=== PATIENT | male | born 1935 | race Caucasian/White ===

== ENCOUNTER 2016-11-19 22:55 | Inpatient (IN) | payer OTHER ==
[~2016-11-19] VITALS: Ht 165.1 cm; Wt 96.6 kg
[2016-11-20] VITALS (18 sets, daily range): BP systolic 94–189; BP diastolic 48–106
--- NOTE | 2016-11-20 00:49 | ED NURSING NOTES ---
Clinical Report - Nurses [place] [address] [place] [address] 11/19/2016 23:01 Patient: FLORESITA WANG TRIAGE Acuity: LEVEL 3. Chief Complaint: COUGH and FEVER and WHEEZING. Alert. No acute distress. SEPSIS SCREEN: Sepsis Screen. Negative (no infection suspected/documented). --23:16 Huyen Jaramillo R.N. 23:08 11/19/16. BP: 123/84. HR: 87. RR: 20. O2 saturation: 88% on room air. Temp: 98.9 F (oral). Pain level now: 0/10. --23:16 Huyen Jaramillo R.N. Weight: 92.9 kg stated. Height/Length: 66 inches Per Patient. BMI: 33.1. --23:15 Huyen Jaramillo R.N. Medications Fluticasone Propionate HFA Inhalation. --23:21 Huyen Jaramillo R.N. Atenolol Oral 25 mg. --23:21 Huyen Jaramillo R.N. Lovastatin Oral (Tablet 40 mg), at bedtime. --23:21 Huyen Jaramillo R.N. Glimepiride Oral. --23:21 Huyen Jaramillo R.N. Lisinopril Oral 20 mg, daily. --23:22 Huyen Jaramillo R.N. MetFORMIN HCl Oral (Tablet 1000 mg). --23:23 Huyen Jaramillo R.N. Warfarin Sodium Oral. --23:23 Huyen Jaramillo R.N. Magnesium Oral. --23:23 Huyen Jaramillo R.N. Albuterol Sulfate Inhalation. --23:26 Huyen Jaramillo R.N. TiZANidine HCl Oral. --23:26 Huyen Jaramillo R.N. Acetaminophen Oral. --23:27 Huyen Jaramillo R.N. Multivitamin Oral. --23:27 Huyen Jaramillo R.N. Medication/allergy information source: the patient's family. --23:16 Huyen Jaramillo R.N. Allergies No Known Drug Allergy. --01:11 Huyen Jaramillo R.N. History Arrived by private vehicle. Historian: spouse and patient. Accompanied by spouse. Primary physician (Josh). Onset. (1 weeks ago). 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 SOCIAL HX: Former smoker, end date 1989. No alcohol use or drug use. NUTRITIONAL RISK ASSESSMENT: The nutritional risk assessment revealed no deficiencies. FUNCTIONAL ASSESSMENT: Functional assessment: no impairments noted. LEARNING NEEDS ASSESSMENT: The learning needs assessment revealed no barriers. FALL RISK ASSESSMENT: Fall risk assessment completed. Risk factors identified include patient age greater than 65 years and impairment of mobility and cognition. Fall interventions initiated. Side rails up x2. Brakes on Bed in low position. Call light in reach of patient. SKIN INTEGRITY ASSESSMENT: Skin integrity risk assessment completed. No skin integrity risk identified. --23:16 Huyen Jaramillo R.N. PROBLEMS: Atrial Fibrillation. Aphthous stomatitis. Tubular adenoma. Lumbar Radiculopathy. Hyperlipidemia. Angina. Erectile Dysfunction. Hip pain. Osteoarthritis of Knee. Lung Cancer. Hypertension. Back Pain. Neuropathy. Dementia. Diabetes Mellitus. --:29 Huyen Jaramillo R.N. ADDITIONAL SURGERIES: Back Surgery. Cancer removal. Cardiac Surgery. Knee Surgery. Lung Surgery. --23:29 Huyen Jaramillo R.N. Assessment GENERAL / NEURO / PSYCH: Alert. Oriented X 4. Appears in no acute distress. [place] Coma Scale: 15- eyes open spontaneously (4); best verbal response- oriented x 4 (5); best motor response- obeys commands (6). Patient appears calm and cooperative. RESPIRATORY: Respirations not labored. Cough. Wheezing present. CVS: Capillary refill less than 2 seconds. GI / : Abdomen soft and nontender. SKIN: Mucous membranes are pink. Skin is warm and dry. --23:16 Huyen Jaramillo R.N. Interventions ID band on patient. To treatment room. --23:16 Huyen Jaramillo R.N. PHYSICAL ASSESSMENT To room via wheelchair. GENERAL / NEURO / PSYCH: Alert. Appears in no acute distress. HEENT: Pupils equal, round and reactive to light. Mucous membranes are pink. RESPIRATORY: Respirations not labored. The patient can speak in full sentences. CVS: Capillary refill less than 2 seconds. SKIN: Skin is warm and dry. Normal skin turgor. --23:32 Huyen Jaramillo R.N. NURSING PROGRESS NOTES 23:20 11/19/2016 Site #1 started via IV in the left forearm with an 20g angiocath, with aseptic technique and good blood return; one attempt. Blood drawn: rainbow set and cultures x1. Labeled in the presence of the patient and sent to the lab. Saline lock flushed with 10 mL saline (Lactic acid). --23:31 Abdoulaye Barnes R.N. 23:27 11/19/2016 Started bag #1 1000 mL IV Fluids IV NS (Saline); at 1000 mL/hr over 30 minute(s) via site #1 via IV pump. --23:31 Abdoulaye Barnes R.N. Oxygen administered by nasal cannula at 2 liters. Patient gowned. Two patient identifiers checked. Checked patient name and birthdate. Call light placed in reach. Side rails up x 2. Bed placed in lowest position. Brakes of bed on. --23:32 Huyen Jaramillo R.N. 23:58 11/19/16. Checked patient name and birthdate: family confirmed. Flu swab obtained by RN via nasal swab. Labeled in the presence of the patient and sent to lab. Checked patient name and birthdate: family confirmed. RSV nasal swab obtained by RN via nasal swab. Labeled in the presence of the patient and sent to lab. --23:58 Huyen Jaramillo R.N. 23:58 11/19/16. law enforcement officer, pulse oximeter and NIBP monitor placed on patient; monitor alarms on. --23:58 Huyen Jaramillo R.N. ( pt agitated, pulling at monitor cables & taking off blood pressure cuff and hospital gown. Assisted pt to a more comfortable position and redressed pt. Pt states "I can't do this, I don't want to be here". Pt reminded that he needs to stay to get better. Primary RN notified.). --00:11 Addis Gatica R.N. 00:13 11/20/16. BP: 164/84. HR: 88. RR: 20. O2 saturation: 95% on nasal cannula at 2 liters/minute. --00:14 Huyen Jaramillo R.N. 00:16 11/20/2016 Started bag #1 1000 mL IV Fluids IV NS (Saline); at 999 mL/hr over 30 minute(s) via site #1 via IV pump. Allergies verified and confirmed 5 rights. IV patency established. IV site checked: no pain, redness, or swelling. IV flushed thoroughly pre- and post-medication administration (second half of bag one). --00:16 Huyen Jaramillo R.N. 00:16 11/20/2016 IV Fluids IV NS Discontinued: bag #1 completed. Total amount infused: 500 mL. IV patency established. IV site checked: no pain, redness, or swelling. IV flushed thoroughly. --00:16 Huyen Jaramillo R.N. 00:26 11/20/16. BP: 159/82. HR: 87. --00:27 Huyen Jaramillo R.N. 00:27 11/20/16. Family at bedside. --00:27 Huyen Jaramillo R.N. 00:42 11/20/16. ( Pt repositioned by 2 RNs. Pt appears uncomfortable and is agitated. Pt's family at bedside.). --00:42 Huyen Jaramillo R.N. 00:42 11/20/16. BP: 159/82. HR: 88. RR: 22. O2 saturation: 95% on nasal cannula at 2 liters/minute. Temp: 100.1 F (oral). --00:43 Huyen Jaramillo R.N. 00:51 11/20/2016 IV Fluids IV NS Discontinued: bag #1 infused. Total amount infused: 1000 mL. IV patency established. IV site checked: no pain, redness, or swelling. IV flushed thoroughly. --00:51 Huyen Jaramillo R.N. 00:53 11/20/2016 Started bag #2 500 mL IV Fluids IV NS (Saline); at 125 mL/hr over 4 hour(s) via site #1 via IV pump. Allergies verified and confirmed 5 rights. IV patency established. IV site checked: no pain, redness, or swelling. IV flushed thoroughly pre- and post-medication administration (bag 2 started to run with antibiotics). --00:53 Huyen Jaramillo R.N. 00:53 11/20/2016 Started 2 gm of Ceftriaxone IVPB in bag #1 50 mL; at 150 mL/hr over 20 minute(s) via site #1 via IV pump. Allergies verified and confirmed 5 rights. IV patency established. IV site checked: no pain, redness, or swelling. IV flushed thoroughly pre- and post-medication administration. --00:53 Huyen Jaramillo R.N. Patient ID band checked for patient birthdate: patient confirmed. Clean catch urine collected with return of yellow-colored clear urine; sample sent to lab for urinalysis and culture. Specimen labeled in the presence of the patient. --01:06 Reno Epstein, ER [facility] [employer] 01:11/20/2016 Ativan (LORazepam) IVP 1 mg given over 1 minute(s) via site #1. Allergies verified, confirmed 5 rights and sedative warning given to the patient. IV patency established. IV site checked: no pain, redness, or swelling. IV flushed thoroughly pre- and post-medication administration. IVP given by RN. --01:10 Huyen Jaramillo R.N. 01:09 11/20/2016 Ceftriaxone IVPB Discontinued: bag #1 completed. Total amount infused: 50 mL. IV patency established. IV site checked: no pain, redness, or swelling. IV flushed thoroughly. --01:09 Addis Gatica R.N. 01:18 11/20/2016 Started 100 mg of Doxycycline Hyclate IVPB in bag #1 250 mL; at 250 mL/hr over 1 hour(s) via site #1 via IV pump. Allergies verified and confirmed 5 rights. IV patency established. IV site checked: no pain, redness, or swelling. IV flushed thoroughly pre- and post-medication administration. --01:28 Huyen Jaramillo R.N. 01:28 11/20/2016 IV Fluids IV NS Continued: upon admission at the rate of 125 mL/hr. 400 mL remaining bag #2. IV patency established. IV site checked: no pain, redness, or swelling. IV flushed thoroughly. --01:28 Huyen Jaramillo R.N. 01:11/20/2016 Site #[address] upon admission; patent, no pain and no signs of infection or infiltration. --01: Huyen Jaramillo R.N. 01:11/20/2016 Doxycycline Hyclate IVPB Continued: at the rate of 250 mL/hr. 250 mL remaining bag #1. IV patency established. IV site checked: no pain, redness, or swelling. IV flushed thoroughly. --01: Huyen Jaramillo R.N. DISPOSITION / DISCHARGE Disposition: observation in Acute Care. Transported via stretcher by [employer] Report was given to a nurse via a phone call. Report included patient's care, treatment, medications, reviewed medication reconcilliation, and condition (including any recent changes or anticipated changes). All questions were answered. Report was acknowledged and care was transferred. Bed obtained and ready. Patient's personal items include: pants, glasses and two hearing aids; items were placed in belongings bag and given to the spouse. He did not have dentures or a wallet or cell phone. --01:22 Huyen Jaramillo R.N. 01:20 11/20/16. BP: 142/71. HR: 81. RR: 20. O2 saturation: 96% on nasal cannula at 2 liters/minute. --01:22 Huyen Jaramillo R.N. Locked/Released at 11/20/2016 1:30 by Huyen Jaramillo R.N.
--- NOTE | 2016-11-20 00:49 | ED ORDER SUMMARY ---
..... Patient: FLORESITA WANG OrderSheet [facility] VisitID: [id number] [place], [place] [id number] 81y, M Registration Date/Time: 11/19/2016 ORDER SHEET Weight: 92.9 kg (stated) Allergies: No Known Drug Allergy GENERAL ORDERS: Chest 2V Urgent (23:25 11/19/2016 Julius Pathak) (Ack 23:29 [facility] ER Transport Nurse) (23:38 MWinterer R.N.) Site Safety Manager (Continuous) (hx a fib) (23:25 11/19/2016 Julius Pathak) (Ack 23:34 MWinterer R.N.) (23:38 MWinterer R.N.) CBC w Diff Urgent (23:25 11/19/2016 Julius Pathak) (Ack 23:29 [facility] ER Transport Nurse) (23:33 MWinterer R.N.) CMP Urgent (23:25 11/19/2016 Julius Pathak) (Ack 23:29 [facility] ER Transport Nurse) (23:33 MWinterer R.N.) UA-Culture if indicated Urgent (23:25 11/19/2016 Julius Pathak) (Ack 23:29 [facility] ER Transport Nurse) (1:05 [facility] ER Transport Nurse) PT with INR Urgent (23:25 11/19/2016 Julius Pathak) (Ack 23:29 [facility] ER Transport Nurse) (23:33 MWinterer R.N.) Lactate, Serum Urgent (23:25 11/19/2016 Julius Pathak) (Ack 23:29 [facility] ER Transport Nurse) (23:38 MWinterer R.N.) Pulse oximeter (23:25 11/19/2016 Julius Pathak) (23:31 JQuivey R.N.) RSV Rapid Screen (Nasal Pharyngeal) (mucus) Urgent (23:52 11/19/2016 Julius Pathak) (Ack 23:53 MWinterer R.N.) (Ack 23:53 [facility] ER Transport Nurse) (23:57 [facility] ER Transport Nurse) Rapid Influenza Screen (Nasal Pharyngeal) (mucus) Urgent (23:52 11/19/2016 Julius Pathak) (Ack 23:53 MWinterer R.N.) (Ack 23:53 [facility] ER Transport Nurse) (23:57 [facility] ER Transport Nurse) PCT (Procalcitonin) Urgent (00:05 11/20/2016 Julius Pathak) (0:06 [facility] ER Transport Nurse) MEDICATION ORDERS: Tylenol PO 650 mg (NOW) (23:25 11/19/2016 Julius Pathak) (Ack 23:31 JQuivey R.N.) (Cancelled: Patient Fjndhjd47:52 MWinterer R.N.) IV FLUIDS: IV NS : initial bolus 500 mL (1000 mL/hr), then none - for X1 (NOW) (23:25 11/19/2016 Julius Pathak) (23:31 JQuivey R.N.) IV NS : initial bolus 500 mL (1000 mL/hr), then none - for X1 (NOW) (00:05 11/20/2016 Julius Pathak) (Ack 0:13 MWinterer R.N.) (0:16 MWinterer R.N.) Ceftriaxone IV 2 gm/50mL (NOW) (00:41 11/20/2016 Julius Pathak) (Ack 0:43 MWinterer R.N.) (0:53 MWinterer R.N.) Doxycycline Hyclate IV 100 mg (NOW) (00:42 11/20/2016 Julius Pathak) (Ack 0:43 MWinterer R.N.) (1:28 MWinterer R.N.) Ativan IV 1 mg (HIGH ALERT MEDICATION, NOW) (00:49 11/20/2016 Julius Pathak) (Ack 0:51 MWinterer R.N.) (1:10 MWinterer R.N.) IV NS : initial bolus none -, then 125 mL/hr (NOW) (00:52 11/20/2016 MWinterer R.N. per protocol) (0:53 MWinterer R.N.) ORDER SHEET NOTES: [Electronically signed by Huyen Jaramillo R.N. (01:30 11/20/2016)] [Electronically signed by Shoaib Meeks Dr. (11/20/2016)] [Electronically locked/signed by Huyen Jaramillo R.N. (:11/20/2016)]
--- NOTE | 2016-11-20 00:49 | ED CLINICAL REPORT ---
Clinical Report - Physicians/Mid Levels [facility] [address] [place] [address] 11/19/2016 23:01 Patient: FLORESITA WANG Time Seen: 2325. Arrived- By private vehicle. Historian- patient. HISTORY OF PRESENT ILLNESS Chief Complaint: FEVER. t max 100.7 at home. This started today and is still present (unchanged). It is not gone now. Fever was gradual in onset and has been persistent. The patient has had altered mental status (family states probably mild dementia but not formally diagnosed. repeating more self more than usual). He has been forgetful. Additional history - The patient has had contact with a sick spouse. Has not recently been ill. He is not immunocompromised. No recent hospitalization. No new medication recently administered. No recent travel. No known exposure to an animal. Similar symptoms previously: None. Recent medical care: Not recently seen/assessed. REVIEW OF SYSTEMS No anorexia, palpitations, nausea, constipation or black stools. No vomiting, headache or neck pain. All systems otherwise negative, except as recorded above. PAST HISTORY See nurses notes. Medications: Multivitamin Oral. Acetaminophen Oral. TiZANidine HCl Oral. Albuterol Sulfate Inhalation. Magnesium Oral. Warfarin Sodium Oral. MetFORMIN HCl Oral (Tablet 1000 mg). Lisinopril Oral 20 mg, daily. Glimepiride Oral. Lovastatin Oral (Tablet 40 mg), at bedtime. Atenolol Oral 25 mg. Fluticasone Propionate HFA Inhalation. Allergies: No Known Drug Allergy. SOCIAL HISTORY Never smoker. Not exposed to second-hand smoke at home. No alcohol use or drug use. Is a local resident. PHYSICAL EXAM Appearance: Alert. No acute distress. Eyes: Pupils equal, round and reactive to light. Eyes normal inspection. ENT: Ears normal. Nose normal. Pharynx normal. Uvula midline. Neck: Normal inspection. Neck supple. No meningeal signs. CVS: Normal heart rate and rhythm. Heart sounds normal. Pulses normal. Respiratory: No respiratory distress. Chest nontender. (crackles noted to the bases bilaterally. Good air movement.). Abdomen: Soft and nontender. Bowel sounds normal. Skin: Skin warm and dry. Normal skin color. No rash. Normal skin turgor. Extremities: Extremities exhibit normal ROM. Extremities nontender. Neuro: No motor deficit. No sensory deficit. LABS, X-RAYS, AND EKG Chest X-ray: Great vessels normal. No fracture. No bony lesion present. (left lower lobe pneumonia.). The X-rays were independently viewed by me and interpreted contemporaneously by me. Laboratory Tests: [id number]: (SUPA: 11/20/2016 00:01) ( MsgRcvd 11/20/2016 00:33) Final results Test Result Flag Units (Reference) PROCALCITONIN <0.5 ng/mL (0-0.5) PCT Concentration: Interpretation : Risk/option for action PCT <=0.5 ng/mL : Systemic : Low risk forinfection(sepsis): progression to severeis not likely. : systemic infection.Local bacterial : CAUTION-PCT levelsinfection is : below 0.5 ng/mL do notpossible. : exclude an infection,because localizedinfections (withoutsystemic signs) may beassociated with suchlow levels. If PCT ismeasured very earlyafter a bacterialchallenge (usually <6hours), these valuesmay still be low. Inthis case PCT shouldbe re-assessed 6-24hours later. PCT >0.5 and : Systemic infection: Moderate risk for<= 2 ng/mL : (sepsis) is : progression to severepossible, but : systemic infection.other conditions : The patient should beare known to : closely monitoredelevate PCT. : both clinically andby re-assessing PCTwithin 6-24 hours. PCT > 2 ng/mL : Systemic infection: High risk for(sepsis) is likely: progression to severeunless other : systemic infection.causes are known. : PCT >= 10 ng/mL : Important systemic: High likelihood ofinflammatory : severe sepsis orresponse, almost : septic shock.exclusively due to:severe bacterial :sepsis or septic :shock. : CBC w Diff: (SUPA: 11/19/2016 23:15) ( [facility] 11/19/2016 23:32) Final results Test Result Flag Units (Reference) WHITE BLOOD COUNT 14.5 H K/uL (4.5-11.5) RED BLOOD COUNT 4.27 L M/uL (4.50-5.90) HEMOGLOBIN 13.1 L gm/dL (13.5-17.5) HEMATOCRIT 39.9 L % (41.0-53.0) MEAN CELL VOLUME 93 fL (80-100) MEAN CORPUSCULAR HGB 31 pg (26-34) MEAN CORPUSCULAR HGB CONC 33 g/dL (31-37) RED CELL DISTRIBUTION WIDTH 14.9 H % (11.6-14.8) PLATELET COUNT 194 K/uL (150-400) LYMPH % 11.3 L % (25-40) MONO % 3.7 % (3-14) GRANULOCYTE % 85.0 PT with INR: (SUPA: 11/19/2016 23:15) ( [facility] Final results Test Result Flag Units (Reference) INR 2.4 H (0.8-1.2) Low Intensity Therapy: INR 1.5-2.0 PT range 18.5-23.1Mod.Intensity Therapy: INR 2.0-3.0 PT range 23.1-31.5High Intensity Therapy: INR 2.5-3.5 PT range 27.4-35.5High Intensity Therapy 2: INR 3.0-4.0 PT range 31.5-39.3 Lactate, Serum: (SUPA: 11/19/2016 23:15) ( [facility] 11/19/2016 23:50) Final results Test Result Flag Units (Reference) LACTIC ACID 2.3 H mmol/L (0.4-2.0) CRITICAL RESULTS CALLEDCalled to DR. MONTANO 11/19/16 2350Were 2 patient identifiers used? YWas the result read back? Y CMP: (SUPA: 11/19/2016 23:15) ( TxgRcvd 11/19/2016 23:45) Final results Test Result Flag Units (Reference) GLUCOSE 311 H mg/dL (70-110) BUN 37 H mg/dL (7-18) CREATININE 1.7 H mg/dL (0.6-1.3) Estimated GFR 41.11 mL/min Estimated GFR- 49.83 mL/min Note: Persistent reduction over 3 months in eGFR<60 mL/min/1.73 m2 defines CKD. Patients with eGFR values>=60 mL/min/1.73 m2 may also have CKD if evidence ofpersistent proteinuria. Additional information may be foundat www.kidney.org. SODIUM 136 mmol/L (136-145) POTASSIUM 4.9 mmol/L (3.5-5.1) CHLORIDE 100 mmol/L (98-107) CARBON DIOXIDE 25 mmol/L (21-32) CALCIUM 9.6 mg/dL (8.5-10.1) TOTAL PROTEIN 8.5 H g/dL (6.4-8.2) ALBUMIN 3.8 g/dL (3.3-5.0) BILIRUBIN, TOTAL 0.4 mg/dL (0.0-1.0) ALKALINE PHOSPHATASE 67 U/L (46-116) AST (SGOT) 26 U/L (15-37) ALT (SGPT) 38 U/L (12-78) RSV Rapid Screen: (SUPA: 11/19/2016 23:55) ( MsgRcvd 11/20/2016 00:14) Final results SPECIMEN DESCRIPTION: MUCUS Test Result Flag Units (Reference) RSV RAPID TEST DATE: 11/20/16 NEGATIVE SCREEN: NEGATIVE If Rapid RSV test is Negative but RSV is still suspected, a confirmatory RSV DFA can be requested. RAPID INFLUENZA SCREEN CALLED TO: N/A -- DATE: 11/20/16 INFLUENZA A: NEGATIVE SCREEN FOR INFLUENZA A INFLUENZA B: NEGATIVE SCREEN FOR INFLUENZA B . PROGRESS AND PROCEDURES Course of Care: the patient is a pleasant 81-year-old male presenting for evaluation of cough and fever. At this time differential diagnosis includes pneumonia or bronchitis. Patient is resting in bed and in no acute distress. Patient is nontoxic. Patient and family are agreeable to the treatment and plan. The patient's workup was remarkable for the findings above. Patient noted to have pneumonia noted on the left lower lobe. Because of the patient's findings on chest x-ray, patient be treated for pneumonia. Patient is also noted to have elevation in his lactic acid at 2.2. Patient likely with sepsis. Because of the patient's symptoms here in the emergency department, patient will need to be admitted to the hospital. I discussion of the patient's family in regards to his presentation here in the emergency Department need for hospitalization. Do not feel patient requires admission to the intensive care unit at this time. Prior to patient's departure from the emergency department he was noted to be resting in bed and in no acute distress. Respirations are regular and unlabored however patient does have slightly more rhonchi than his initial evaluation. Discussed the case with the hospitalist. No further recommendations made. Patient was admitted without any problems. Critical care performed (35 minutes). Time is exclusive of separately billable procedures. Time includes: direct patient care, patient reassessment, coordination of patient care, interpretation of data (chest xrays), review of patient's medical records, medical consultation, family consultation regarding treatment decisions and documentation of patient care. Disposition: Discharged. Condition: good. (Electronically signed by Shoaib Montano Dr. 11/20/2016 9:29)
--- NOTE | 2016-11-20 00:49 | ED ORDER SUMMARY ---
..... Patient: FLORESITA WANG OrderSheet [facility] VisitID: [id number] [place], [place] [id number] 81y, M Registration Date/Time: 11/19/2016 ORDER SHEET Weight: 92.9 kg (stated) Allergies: No Known Drug Allergy GENERAL ORDERS: Chest 2V Urgent (23:25 11/19/2016 Julius Pathak) (Ack 23:29 [facility] ER Internal Medicine Nurse Practitioner) (23:38 MWinterer R.N.) Application Development Consultant (Continuous) (hx a fib) (23:25 11/19/2016 Julius Pathak) (Ack 23:34 MWinterer R.N.) (23:38 MWinterer R.N.) CBC w Diff Urgent (23:25 11/19/2016 Julius Pathak) (Ack 23:29 [facility] ER Internal Medicine Nurse Practitioner) (23:33 MWinterer R.N.) CMP Urgent (23:25 11/19/2016 Julius Pathak) (Ack 23:29 [facility] ER Internal Medicine Nurse Practitioner) (23:33 MWinterer R.N.) UA-Culture if indicated Urgent (23:25 11/19/2016 Julius Pathak) (Ack 23:29 [facility] ER Internal Medicine Nurse Practitioner) (1:05 [facility] ER Internal Medicine Nurse Practitioner) PT with INR Urgent (23:25 11/19/2016 Julius Pathak) (Ack 23:29 [facility] ER Internal Medicine Nurse Practitioner) (23:33 MWinterer R.N.) Lactate, Serum Urgent (23:25 11/19/2016 Julius Pathak) (Ack 23:29 [facility] ER Internal Medicine Nurse Practitioner) (23:38 MWinterer R.N.) Pulse oximeter (23:25 11/19/2016 Julius Pathak) (23:31 JQuivey R.N.) RSV Rapid Screen (Nasal Pharyngeal) (mucus) Urgent (23:52 11/19/2016 Julius Pathak) (Ack 23:53 MWinterer R.N.) (Ack 23:53 [facility] ER Internal Medicine Nurse Practitioner) (23:57 [facility] ER Internal Medicine Nurse Practitioner) Rapid Influenza Screen (Nasal Pharyngeal) (mucus) Urgent (23:52 11/19/2016 Julius Pathak) (Ack 23:53 MWinterer R.N.) (Ack 23:53 [facility] ER Internal Medicine Nurse Practitioner) (23:57 [facility] ER Internal Medicine Nurse Practitioner) PCT (Procalcitonin) Urgent (00:05 11/20/2016 Julius Pathak) (0:06 [facility] ER Internal Medicine Nurse Practitioner) MEDICATION ORDERS: Tylenol PO 650 mg (NOW) (23:25 11/19/2016 Julius Pathak) (Ack 23:31 JQuivey R.N.) (Cancelled: Patient Wtdbngl45:52 MWinterer R.N.) IV FLUIDS: IV NS : initial bolus 500 mL (1000 mL/hr), then none - for X1 (NOW) (23:25 11/19/2016 Julius Pathak) (23:31 JQuivey R.N.) IV NS : initial bolus 500 mL (1000 mL/hr), then none - for X1 (NOW) (00:05 11/20/2016 Julius Pathak) (Ack 0:13 MWinterer R.N.) (0:16 MWinterer R.N.) Ceftriaxone IV 2 gm/50mL (NOW) (00:41 11/20/2016 Julius Pathak) (Ack 0:43 MWinterer R.N.) (0:53 MWinterer R.N.) Doxycycline Hyclate IV 100 mg (NOW) (00:42 11/20/2016 Julius Pathak) (Ack 0:43 MWinterer R.N.) (1:28 MWinterer R.N.) Ativan IV 1 mg (HIGH ALERT MEDICATION, NOW) (00:49 11/20/2016 Julius Pathak) (Ack 0:51 MWinterer R.N.) (1:10 MWinterer R.N.) IV NS : initial bolus none -, then 125 mL/hr (NOW) (00:52 11/20/2016 MWinterer R.N. per protocol) (0:53 MWinterer R.N.) ORDER SHEET NOTES: [Electronically signed by Huyen Jaramillo R.N. (01:30 11/20/2016)] [Electronically signed by Shoaib Meeks Dr. (11/20/2016)] [Electronically locked/signed by Huyen Jaramillo R.N. (:11/20/2016)]
--- NOTE | 2016-11-20 02:17 | NUR ---
PT ADMITTED TO ROOM 303 VIA THE ED. PT WAS TRANSFERRED FROM THE [facility] TO THE BED USING A SLIDER SHEET. HE IS ALERT AND ORIENTED TO PERSON ONLY. AND DAUGHTERS ARE AT THE BEDSIDE. IV IS RUNNING IN THE LFA, BED ALARM IS ON AND IN LOWEST POSITION, CALL LIGHT IS IN PLACE. PT PLACED ON 2L O2 TO MAINTAIN O2 SATURATION ABOVE 92%. DR JARAMILLO WITH THE PT. WILL CONTINUE TO MONITOR.
--- NOTE | 2016-11-20 03:22 | Progress Note ---
Subjective General Admission History and Physical Examination Patient Name: Shamir Caceres Admission Date: 11/20/16 Primary Care Provider: Dr. Moreno Attending Physician: Dr. Kal Ansari M.D. Admitting Physician: Mitchel Hernandez MD Code Status: Full Code Room: 303 SUBJECTIVE Historian: (Nisreen) daughter patient was non verbal during the initial exam Reliability: reliability excellen Chief Complaint: Shortness of breath cough Fever History of Present Illness: The patient is a 81 WM with PMH of afib, cad (6 vsl bypass 1993), DM II, HTN, OA presenting to the [facility] ED after 5 days of cough, increased work of breathing, shortness of breath and febrile. He was his normal state of health other than cough on the day prior; mowing the grass, eating a meal with the family when he became irritated and found to be febrile at home. He was also having worsening cough..He was brought into the [facility] ED and found to be hypoxia on room air, febrile (100.7) with increased work of breathing. He was found with an elevated WBC count, LA of 2.2, and Infiltrates were seen in the RLL,. Admission to acute care with pneumonia, hypoxia and sepsis work up. Patient is accompanied by his (Nisreen and two daughters). Patient has been coughing for nearly a week. she states that he's not really improved over this week. He was seen by his primary care provider, Dr. Briseno in the past few days. He was given an inhaler, but was not given any form of antibiotic. The inhaler has not been effective. Early in the day he was at his baseline. In fact, he was mowing the lawn. Had dinner with his family. Later in the evening he began looking to be uncomfortable became agitated, had fever. Family elected to bring him to the emergency department for further work up. After being seen by emergency department at [facility]. He'll institute determined that patient was to be admitted to acute care. Patient is admitted with elevated lactic acid. Sepsis workup, pneumonia and hypoxia on room air. PAST MEDICAL HISTORY Illnesses: 1. Type II DM with neuropathy 2. Hypertension 3. HLD 4. CAD 5. Afib rate controlled on alf anticoagulation 6. Osteoarthritis involving hips, knee, shoulder back 7. CKD Stage II 8. History of lung cancer 9. Early Dementia Allergies: 1. NKDA Medications: 1. Albuterol sulfate 1-2 puffs every 6 hours as needed for wheeze. 2. Atenolol 25 mg by mouth daily 3. Fluticasone 1 puff HFA inhaled twice a day. 4. Glimepiride dosage unknown. 5. Lisinopril 20 mg by mouth daily. 6. Lovastatin 40 mg by mouth at bedtime 7. Magnesium supplementation daily. 8. Metformin 1000 mg by mouth twice a day 9. Multivitamin therapy 10. Tizanidine dosage unknown daily use. 11. Warfarin 5. To simplify 5 mg by mouth daily Surgery: 1. CABG 1993 (6 vsl bypass) 2. Partial lobectomy (lung cancer) 3. Tonia TKR total knee replacement 4. Spinal surgery; lower back injury Injuries: 1. Back injury 1986 Hospitalizations: 1. multiple FAMILY HISTORY Parents: 1. Father, age related illness, 2. Mother, age related illness Children: 1. daughters 2 daughters present at the hospital Other significant family history: [other] SOCIAL HISTORY 1. Marital Status: Nisreen (60 years of marriage) 2. Presybeterian: unknown 3. 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 Occupational health exposures: uknown. HABITS 1. Tobacco: remote hx of smoking 2. Drugs: none 3. Alcohol: none HEALTH SUPERVISION Item/Test Blood Glucose: [GLU] Colonoscopy: [colonoscopy] History and physical exam: [H&P] IMMUNIZATIONS: record not available ADVANCED DIRECTIVES: 1. Living well: available; not on Hospital record 2. POLST: not on Hospital record 3. Code Status: full code; 4. [employer] Director Health care: Nisreen 5. Donor card: [facility] REVIEW OF SYSTEMS Remarkable for those things stated in the history of present illness and past medical history. Seventeen point review of system completed with the following notable findings: ROS Constitutional Fever, Weakness. Respiratory Wheezing. Cardiovascular Denies: Palpitations. Gastrointestinal Diarrhea. Denies: Vomiting. Genitourinary Incontinence. Physical Exam Vital Signs / I&Os Vital Signs Date Time Temp Pulse Resp B/P Pulse O2 O2 Flow FiO2 Ox Delivery Rate 11/20 0251 105/50 11/20 0223 Nasal 2.0 Cannula 11/20 0155 98.1 93 22 174/93 96 Nasal 2.0 Cannula General Appearance Cooperative, Mild distress, patient is non-verbal during the exam. appears restless HEENT EOMI Lungs decreased breath sounds. rhonchi, rales Neck Supple Cardiovascular irregular irregular Abdomen Soft, No tenderness Extremities No clubbing, No edema Skin No Significant Lesions Neurological No lateralizing signs Psych/Mental Status Confused LAB Results Laboratory Tests 11/19 11/19 11/20 11/20 2315 2315 0001 0102 Chemistry Plasma Sodium (136 - 145 mmol/L) 136 Plasma Potassium (3.5 - 5.1 mmol/L) 4.9 Plasma Chloride (98 - 107 mmol/L) 100 CO2 (Enzymatic) (21 - 32 mmol/L) 25 BUN (7 - 18 mg/dL) 37 Creatinine (0.6 - 1.3 mg/dL) 1.7 Est GFR ( Amer) (mL/min) 49.83 Est GFR (Non-Af Amer) (mL/min) 41.11 Glucose (70 - 110 mg/dL) 311 Lactic Acid (0.4 - 2.0 mmol/L) 2.3 Plasma Calcium (8.5 - 10.1 mg/dL) 9.6 Total Bilirubin (0.0 - 1.0 mg/dL) 0.4 AST (15 - 37 U/L) 26 ALT (12 - 78 U/L) 38 Alkaline Phosphatase (46 - 116 U/L) 67 Total Protein (6.4 - 8.2 g/dL) 8.5 Albumin (3.3 - 5.0 g/dL) 3.8 Procalcitonin (0 - 0.5 ng/mL) <0.5 Coagulation INR (0.8 - 1.2) 2.4 Hematology WBC (4.5 - 11.5 K/uL) 14.5 RBC (4.50 - 5.90 M/uL) 4.27 Hgb (13.5 - 17.5 gm/dL) 13.1 Hct (41.0 - 53.0 %) 39.9 MCV (80 - 100 fL) 93 MCH (26 - 34 pg) 31 RDW (11.6 - 14.8 %) 14.9 Gran % 85.0 Lymph % (Auto) (25 - 40 %) 11.3 [place] % (Auto) (3 - 14 %) 3.7 Plt Count, EDTA (150 - 400 K/uL) 194 PUBS MCHC (31 - 37 g/dL) 33 Urines Urine Color YELLOW Urine Appearance CLEAR Urine pH (5.0 - 8.0) 6.0 Ur Specific [place] (1.010 - 1.030) 1.020 Urine Protein (NEGATIVE) 2+ Urine Ketones (NEGATIVE) NEGATIVE Urine Blood (NEGATIVE) TRACE-INTACT Urine Nitrite (NEGATIVE) NEGATIVE Urine Bilirubin (NEGATIVE) NEGATIVE Urine Urobilinogen (0.2 - 1.0 EU/dL) 0.2 Ur Leukocyte Esterase (NEGATIVE) NEGATIVE Urine RBC (0 - 1 rbc/hpf) 0-1 Urine WBC (0 - 1 wbc/hpf) 0-1 Ur Epithelial Cells (0 - 5 EPI/hpf) 0-1 Urine Bacteria (NONE SEEN) NONE SEEN Urine Glucose (NEGATIVE) 1+ Urine Comment CULT NOT INDICATED Microbiology Date/Time Procedure - Status Source Growth 11/20 UNK Blood Culture - ORD BLOOD 11/20 0001 Blood Culture - RECD BLOOD 11/19 716 Respiratory Syncytial Virus Ag Scrn - COMP NASALPHAR 11/19 2354 Influenza Screen - COMP NASALPHAR Assessment and Plan Problem List 1. Sepsis Plan Patient is admitted under acute care for a sepsis workup with source of infection being pneumonia. Seen within elevated lactic acid. Follow blood cultures, urine cultures and respiratory cultures. Start respiratory support including 2 every 4-6 hours Albuterol as needed. Give 40 mg Solu-Medrol twice a day. Hold the inhaled steroid. Antibiotics 2 including ceftriaxone and azithromycin. Other respiratory support features including oxygen therapy. Patient was found to be hypoxic on room air on admission. Chest x-ray in the AM. Vitals will trend; alert fever, low oxygen saturations Nursing to watch the work of breathing and associated aspiration risk. 2. Left lower lobe pneumonia Plan Left lower lobe pneumonia seen on chest x-ray. Admission with a fever and increased work of breathing. Starting appropriate protocol for sepsis. Respiratory support, antibiotics and oxygen therapy. Anticipate 2-3 days of intense care. Solu-Medrol 40 mg twice a day. Hold in the inhaled steroid 3. Hypoxia Plan Hypoxic on room air, related to recent onset pneumonia. Incentive spirometry Oxygen while admitted until weaned. Respiratory support. 4. Diabetes mellitus Plan Oral hyperglycemic agents; Holding all oral medication at this time. Maintaining a moderate dose insulin sliding scale; range of blood sugars between 120-180 Blood sugar readings every before meals at bedtime Carbohydrate consistent diet. Avoid fluctuations in sugar loads. 5. Afib Plan Rate controlled. Continue to monitor pro times. Continue with the warfarin at the previous home dosage. Titrate as needed.. Prophylaxis for DVT and A. fib. E&M Codes Admission: Inpt-High/75429
--- NOTE | 2016-11-20 03:22 | Progress Note ---
Subjective General Admission History and Physical Examination Patient Name: Shamir Caceres Admission Date: 11/20/16 Primary Care Provider: Dr. Moreno Attending Physician: Dr. Kal Ansari M.D. Admitting Physician: Mitchel Hernandez MD Code Status: Full Code Room: 303 SUBJECTIVE Historian: (Nisreen) daughter patient was non verbal during the initial exam Reliability: reliability excellen Chief Complaint: Shortness of breath cough Fever History of Present Illness: The patient is a 81 WM with PMH of afib, cad (6 vsl bypass 1993), DM II, HTN, OA presenting to the [facility] ED after 5 days of cough, increased work of breathing, shortness of breath and febrile. He was his normal state of health other than cough on the day prior; mowing the grass, eating a meal with the family when he became irritated and found to be febrile at home. He was also having worsening cough..He was brought into the [facility] ED and found to be hypoxia on room air, febrile (100.7) with increased work of breathing. He was found with an elevated WBC count, LA of 2.2, and Infiltrates were seen in the RLL,. Admission to acute care with pneumonia, hypoxia and sepsis work up. Patient is accompanied by his (Nisreen and two daughters). Patient has been coughing for nearly a week. she states that he's not really improved over this week. He was seen by his primary care provider, Dr. Briseno in the past few days. He was given an inhaler, but was not given any form of antibiotic. The inhaler has not been effective. Early in the day he was at his baseline. In fact, he was mowing the lawn. Had dinner with his family. Later in the evening he began looking to be uncomfortable became agitated, had fever. Family elected to bring him to the emergency department for further work up. After being seen by emergency department at [facility]. He'll institute determined that patient was to be admitted to acute care. Patient is admitted with elevated lactic acid. Sepsis workup, pneumonia and hypoxia on room air. PAST MEDICAL HISTORY Illnesses: 1. Type II DM with neuropathy 2. Hypertension 3. HLD 4. CAD 5. Afib rate controlled on penitentiary anticoagulation 6. Osteoarthritis involving hips, knee, shoulder back 7. CKD Stage II 8. History of lung cancer 9. Early Dementia Allergies: 1. NKDA Medications: 1. Albuterol sulfate 1-2 puffs every 6 hours as needed for wheeze. 2. Atenolol 25 mg by mouth daily 3. Fluticasone 1 puff HFA inhaled twice a day. 4. Glimepiride dosage unknown. 5. Lisinopril 20 mg by mouth daily. 6. Lovastatin 40 mg by mouth at bedtime 7. Magnesium supplementation daily. 8. Metformin 1000 mg by mouth twice a day 9. Multivitamin therapy 10. Tizanidine dosage unknown daily use. 11. Warfarin 5. To simplify 5 mg by mouth daily Surgery: 1. CABG 1993 (6 vsl bypass) 2. Partial lobectomy (lung cancer) 3. Tonia TKR total knee replacement 4. Spinal surgery; lower back injury Injuries: 1. Back injury 1986 Hospitalizations: 1. multiple FAMILY HISTORY Parents: 1. Father, age related illness, 2. Mother, age related illness Children: 1. daughters 2 daughters present at the hospital Other significant family history: [other] SOCIAL HISTORY 1. Marital Status: Nisreen (60 years of marriage) 2. Yazdanism: unknown 3. 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 Occupational health exposures: uknown. HABITS 1. Tobacco: remote hx of smoking 2. Drugs: none 3. Alcohol: none HEALTH SUPERVISION Item/Test Blood Glucose: [GLU] Colonoscopy: [colonoscopy] History and physical exam: [H&P] IMMUNIZATIONS: record not available ADVANCED DIRECTIVES: 1. Living well: available; not on Hospital record 2. POLST: not on Hospital record 3. Code Status: full code; 4. Durable [employer] Health care: Nisreen 5. Donor card: [facility] REVIEW OF SYSTEMS Remarkable for those things stated in the history of present illness and past medical history. Seventeen point review of system completed with the following notable findings: ROS Constitutional Fever, Weakness. Respiratory Wheezing. Cardiovascular Denies: Palpitations. Gastrointestinal Diarrhea. Denies: Vomiting. Genitourinary Incontinence. Physical Exam Vital Signs / I&Os Vital Signs Date Time Temp Pulse Resp B/P Pulse O2 O2 Flow FiO2 Ox Delivery Rate 11/20 0251 105/50 11/20 0223 Nasal 2.0 Cannula 11/20 0155 98.1 93 22 174/93 96 Nasal 2.0 Cannula General Appearance Cooperative, Mild distress, patient is non-verbal during the exam. appears restless HEENT EOMI Lungs decreased breath sounds. rhonchi, rales Neck Supple Cardiovascular irregular irregular Abdomen Soft, No tenderness Extremities No clubbing, No edema Skin No Significant Lesions Neurological No lateralizing signs Psych/Mental Status Confused LAB Results Laboratory Tests 11/19 11/19 11/20 11/20 2315 2315 0001 0102 Chemistry Plasma Sodium (136 - 145 mmol/L) 136 Plasma Potassium (3.5 - 5.1 mmol/L) 4.9 Plasma Chloride (98 - 107 mmol/L) 100 CO2 (Enzymatic) (21 - 32 mmol/L) 25 BUN (7 - 18 mg/dL) 37 Creatinine (0.6 - 1.3 mg/dL) 1.7 Est GFR ( Amer) (mL/min) 49.83 Est GFR (Non-Af Amer) (mL/min) 41.11 Glucose (70 - 110 mg/dL) 311 Lactic Acid (0.4 - 2.0 mmol/L) 2.3 Plasma Calcium (8.5 - 10.1 mg/dL) 9.6 Total Bilirubin (0.0 - 1.0 mg/dL) 0.4 AST (15 - 37 U/L) 26 ALT (12 - 78 U/L) 38 Alkaline Phosphatase (46 - 116 U/L) 67 Total Protein (6.4 - 8.2 g/dL) 8.5 Albumin (3.3 - 5.0 g/dL) 3.8 Procalcitonin (0 - 0.5 ng/mL) <0.5 Coagulation INR (0.8 - 1.2) 2.4 Hematology WBC (4.5 - 11.5 K/uL) 14.5 RBC (4.50 - 5.90 M/uL) 4.27 Hgb (13.5 - 17.5 gm/dL) 13.1 Hct (41.0 - 53.0 %) 39.9 MCV (80 - 100 fL) 93 MCH (26 - 34 pg) 31 RDW (11.6 - 14.8 %) 14.9 Gran % 85.0 Lymph % (Auto) (25 - 40 %) 11.3 [place] % (Auto) (3 - 14 %) 3.7 Plt Count, EDTA (150 - 400 K/uL) 194 PUBS MCHC (31 - 37 g/dL) 33 Urines Urine Color YELLOW Urine Appearance CLEAR Urine pH (5.0 - 8.0) 6.0 Ur Specific [place] (1.010 - 1.030) 1.020 Urine Protein (NEGATIVE) 2+ Urine Ketones (NEGATIVE) NEGATIVE Urine Blood (NEGATIVE) TRACE-INTACT Urine Nitrite (NEGATIVE) NEGATIVE Urine Bilirubin (NEGATIVE) NEGATIVE Urine Urobilinogen (0.2 - 1.0 EU/dL) 0.2 Ur Leukocyte Esterase (NEGATIVE) NEGATIVE Urine RBC (0 - 1 rbc/hpf) 0-1 Urine WBC (0 - 1 wbc/hpf) 0-1 Ur Epithelial Cells (0 - 5 EPI/hpf) 0-1 Urine Bacteria (NONE SEEN) NONE SEEN Urine Glucose (NEGATIVE) 1+ Urine Comment CULT NOT INDICATED Microbiology Date/Time Procedure - Status Source Growth 11/20 UNK Blood Culture - ORD BLOOD 11/20 0001 Blood Culture - RECD BLOOD 11/19 179 Respiratory Syncytial Virus Ag Scrn - COMP NASALPHAR 11/19 2353 Influenza Screen - COMP NASALPHAR Assessment and Plan Problem List 1. Sepsis Plan Patient is admitted under acute care for a sepsis workup with source of infection being pneumonia. Seen within elevated lactic acid. Follow blood cultures, urine cultures and respiratory cultures. Start respiratory support including 2 every 4-6 hours Albuterol as needed. Give 40 mg Solu-Medrol twice a day. Hold the inhaled steroid. Antibiotics 2 including ceftriaxone and azithromycin. Other respiratory support features including oxygen therapy. Patient was found to be hypoxic on room air on admission. Chest x-ray in the AM. Vitals will trend; alert fever, low oxygen saturations Nursing to watch the work of breathing and associated aspiration risk. 2. Left lower lobe pneumonia Plan Left lower lobe pneumonia seen on chest x-ray. Admission with a fever and increased work of breathing. Starting appropriate protocol for sepsis. Respiratory support, antibiotics and oxygen therapy. Anticipate 2-3 days of intense care. Solu-Medrol 40 mg twice a day. Hold in the inhaled steroid 3. Hypoxia Plan Hypoxic on room air, related to recent onset pneumonia. Incentive spirometry Oxygen while admitted until weaned. Respiratory support. 4. Diabetes mellitus Plan Oral hyperglycemic agents; Holding all oral medication at this time. Maintaining a moderate dose insulin sliding scale; range of blood sugars between 120-180 Blood sugar readings every before meals at bedtime Carbohydrate consistent diet. Avoid fluctuations in sugar loads. 5. Afib Plan Rate controlled. Continue to monitor pro times. Continue with the warfarin at the previous home dosage. Titrate as needed.. Prophylaxis for DVT and A. fib. E&M Codes Admission: Inpt-High/93952
[2016-11-20] MEDS ORDERED: FLOVENT HFA220 MCG INH (04:15)
[2016-11-20] MEDS ORDERED: ATENOLOL25 MG PO (04:15)
[2016-11-20] MEDS ORDERED: FLONASE AL50 MCG/ACT (04:16)
[2016-11-20] MEDS ORDERED: LOVASTATIN40 MG PO (04:17)
[2016-11-20] MEDS ORDERED: GLIMEPIRIDE1 MG PO (04:17)
[2016-11-20] MEDS ORDERED: GLUCOPHAGE500 MG PO (04:18)
[2016-11-20] MEDS ORDERED: ZESTRIL10 MG PO (04:18)
[2016-11-20] MEDS ORDERED: COUMADIN2.5 MG PO (04:19)
[2016-11-20] MEDS ORDERED: MAG-OX 400400 MG PO (04:19)
[2016-11-20] MEDS ORDERED: PROAIR HFA IN (04:20)
--- NOTE | 2016-11-20 06:16 | DIAGNOSTIC IMAGING REPORT ---
PROCEDURE: XR CHEST 2 VIEW INDICATION: FEVER AND COUGH TECHNIQUE: PA and lateral views. COMPARISON: None. FINDINGS: Mild to moderate parenchymal changes at the left lung base. Right lung is clear. Status post median sternotomy. Heart and mediastinum are normal size. Mild degenerative changes of the thoracic spine. IMPRESSION: 1. Mild to moderate parenchymal change at the left lung base compatible with pneumonia (e.g., bacterial, aspiration, Mycoplasma). 2. Status post median sternotomy.
--- NOTE | 2016-11-20 08:20 | NUR ---
PT QUITE SOMNOLENT THIS MORNING. WITH PAINFUL STIMULI, PT'S EYES FLUTTER OPEN ONLY MOMENTARILY. LABORED BREATHING WITH AUDIBLE WHEEZING. TACHYPNEIC. MD AT BEDSIDE. ABG DRAWN PER MD ORDER. TELE IN AFIB, RATE CONTROLLED, 80'S. O2 SAT 94% ON 1L NC. WILL MONITOR.
--- NOTE | 2016-11-20 09:29 | ED MED RECONCILIATION SUMMARY ---
Patient: FLORESITA WANG Medication Reconciliation Report [facility] VisitID: [id number] [address] [place] [address] 81y, M Registration Date/Time: 11/19/2016 Weight: 92.9 kg Height/Length: 66 in. BMI: 33.1 ALLERGIES: No Known Drug Allergy The patient's Home Medications are listed below: THE FOLLOWING MEDICATIONS NEED TO BE RECONCILED: Acetaminophen Oral Albuterol Sulfate Inhalation Atenolol Oral 25 mg Fluticasone Propionate HFA Inhalation Glimepiride Oral Lisinopril Oral 20 mg, daily Lovastatin Oral (40 mg), at bedtime Magnesium Oral MetFORMIN HCl Oral (1000 mg) Multivitamin Oral TiZANidine HCl Oral Warfarin Sodium Oral The source(s) of the original Home Medication information: patient's family member The following Medications were given to the patient in the Emergency Department: IV NS IV Fluids bolus 0, then 1000 mL/hr, administered: 11/19/2016 11:27:00 PM IV NS IV Fluids bolus 0, then 999 mL/hr, administered: 11/20/2016 12:16:00 AM IV NS IV Fluids bolus 0, then 125 mL/hr, administered: 11/20/2016 12:53:00 AM Ceftriaxone [IVPB] IVPB bolus 0, then 2 gm 150 mL/hr, administered: 11/20/2016 12:53:00 AM Ativan [IVP] IVP 1 mg, administered: 11/20/2016 1:05:00 AM Doxycycline Hyclate [IVPB] IVPB bolus 0, then 100 mg 250 mL/hr, administered: 11/20/2016 1:18:00 AM The following Medications were prescribed to the patient: None.
--- NOTE | 2016-11-20 09:29 | ED MAR SUMMARY ---
..... Medication Administration Record [facility] [address] [address] Patient: FLORESITA WANG Visit ID: [id number] 81y, M Weight: 92.9 kg Height/Length: 66 in BMI: 33.1 ALLERGIES: No Known Drug Allergy Start 23:27 11/19/2016 Abdoulaye Barnes R.N., Stop 00:16 11/20/2016 Huyen Jaramillo R.N. Medication Administered: IV NS (SALINE), Dose: IV Fluids over 30 minute(s), Rate: 1000 mL/hr, Dispensed: 1000 mL bag, Site: #1 left forearm. Medication Ordered: IV NS : initial bolus 500 mL (1000 mL/hr), then none - for X1 (NOW). Start 00:16 11/20/2016 Huyen Jaramillo R.N., Stop 00:51 11/20/2016 Huyen Jaramillo R.N. Medication Administered: IV NS (SALINE), Dose: IV Fluids over 30 minute(s), Rate: 999 mL/hr, Dispensed: 1000 mL bag, Site: #1 left forearm. Medication Ordered: IV NS : initial bolus 500 mL (1000 mL/hr), then none - for X1 (NOW). Start 00:53 11/20/2016 Huyen Jaramillo R.N., Stop 01:09 11/20/2016 Addis Gatica R.N. Medication Administered: CEFTRIAXONE [IVPB], Dose: 2 gm IVPB over 20 minute(s), Rate: 150 mL/hr, Dispensed: 50 mL bag, Site: #1 left forearm. Medication Ordered: Ceftriaxone IV 2 gm/50mL (NOW). Start 00:53 11/20/2016 Huyen Jaramillo R.N., Continued Upon Admission 01:11/20/2016 Huyen Jaramillo R.N. Medication Administered: IV NS (SALINE), Dose: IV Fluids over 4 hour(s), Rate: 125 mL/hr, Dispensed: 500 mL bag, Site: #1 left forearm. Medication Ordered: IV NS : initial bolus none -, then 125 mL/hr (NOW). Given 01:11/20/2016 Huyen Jaramillo R.N. Medication Administered: ATIVAN [IVP] (LORAZEPAM), Dose: 1 mg IVP over 1 minute(s), Site: #1 left forearm. Medication Ordered: Ativan IV 1 mg (HIGH ALERT MEDICATION, NOW). Start 01:18 11/20/2016 Huyen Jaramillo R.N., Continued Upon Disposition 01:29 11/20/2016 Huyen Jaramillo R.N. Medication Administered: DOXYCYCLINE HYCLATE [IVPB], Dose: 100 mg IVPB over 1 hour(s), Rate: 250 mL/hr, Dispensed: 250 mL bag, Site: #1 left forearm. Medication Ordered: Doxycycline Hyclate IV 100 mg (NOW).
--- NOTE | 2016-11-20 09:29 | ED MED RECONCILIATION SUMMARY ---
Patient: FLORESITA WANG Medication Reconciliation Report [facility] VisitID: [id number] [address] [place] [address] 81y, M Registration Date/Time: 11/19/2016 Weight: 92.9 kg Height/Length: 66 in. BMI: 33.1 ALLERGIES: No Known Drug Allergy The patient's Home Medications are listed below: THE FOLLOWING MEDICATIONS NEED TO BE RECONCILED: Acetaminophen Oral Albuterol Sulfate Inhalation Atenolol Oral 25 mg Fluticasone Propionate HFA Inhalation Glimepiride Oral Lisinopril Oral 20 mg, daily Lovastatin Oral (40 mg), at bedtime Magnesium Oral MetFORMIN HCl Oral (1000 mg) Multivitamin Oral TiZANidine HCl Oral Warfarin Sodium Oral The source(s) of the original Home Medication information: patient's family member The following Medications were given to the patient in the Emergency Department: IV NS IV Fluids bolus 0, then 1000 mL/hr, administered: 11/19/2016 11:27:00 PM IV NS IV Fluids bolus 0, then 999 mL/hr, administered: 11/20/2016 12:16:00 AM IV NS IV Fluids bolus 0, then 125 mL/hr, administered: 11/20/2016 12:53:00 AM Ceftriaxone [IVPB] IVPB bolus 0, then 2 gm 150 mL/hr, administered: 11/20/2016 12:53:00 AM Ativan [IVP] IVP 1 mg, administered: 11/20/2016 1:05:00 AM Doxycycline Hyclate [IVPB] IVPB bolus 0, then 100 mg 250 mL/hr, administered: 11/20/2016 1:18:00 AM The following Medications were prescribed to the patient: None.
--- NOTE | 2016-11-20 09:29 | ED MAR SUMMARY ---
..... Medication Administration Record [facility] [address] [facility] [place] [address] Patient: FLORESITA WANG Visit ID: [id number] 81y, M Weight: 92.9 kg Height/Length: 66 in BMI: 33.1 ALLERGIES: No Known Drug Allergy Start 23:27 11/19/2016 Abdoulaye Barnes R.N., Stop 00:16 11/20/2016 Huyen Jaramillo R.N. Medication Administered: IV NS (SALINE), Dose: IV Fluids over 30 minute(s), Rate: 1000 mL/hr, Dispensed: 1000 mL bag, Site: #1 left forearm. Medication Ordered: IV NS : initial bolus 500 mL (1000 mL/hr), then none - for X1 (NOW). Start 00:16 11/20/2016 Huyen Jaramillo R.N., Stop 00:51 11/20/2016 Huyen Jaramillo R.N. Medication Administered: IV NS (SALINE), Dose: IV Fluids over 30 minute(s), Rate: 999 mL/hr, Dispensed: 1000 mL bag, Site: #1 left forearm. Medication Ordered: IV NS : initial bolus 500 mL (1000 mL/hr), then none - for X1 (NOW). Start 00:53 11/20/2016 Huyen Jaramillo R.N., Stop 01:09 11/20/2016 Addis Gatica R.N. Medication Administered: CEFTRIAXONE [IVPB], Dose: 2 gm IVPB over 20 minute(s), Rate: 150 mL/hr, Dispensed: 50 mL bag, Site: #1 left forearm. Medication Ordered: Ceftriaxone IV 2 gm/50mL (NOW). Start 00:53 11/20/2016 Huyen Jaramillo R.N., Continued Upon Admission 01:11/20/2016 Huyen Jaramillo R.N. Medication Administered: IV NS (SALINE), Dose: IV Fluids over 4 hour(s), Rate: 125 mL/hr, Dispensed: 500 mL bag, Site: #1 left forearm. Medication Ordered: IV NS : initial bolus none -, then 125 mL/hr (NOW). Given 01:11/20/2016 Huyen Jaramillo R.N. Medication Administered: ATIVAN [IVP] (LORAZEPAM), Dose: 1 mg IVP over 1 minute(s), Site: #1 left forearm. Medication Ordered: Ativan IV 1 mg (HIGH ALERT MEDICATION, NOW). Start 01:18 11/20/2016 Huyen Jaramillo R.N., Continued Upon Disposition 01:29 11/20/2016 Huyen Jaramillo R.N. Medication Administered: DOXYCYCLINE HYCLATE [IVPB], Dose: 100 mg IVPB over 1 hour(s), Rate: 250 mL/hr, Dispensed: 250 mL bag, Site: #1 left forearm. Medication Ordered: Doxycycline Hyclate IV 100 mg (NOW).
--- NOTE | 2016-11-20 10:17 | NUR ---
PT PLACED ON BIPAP. TOLERATING WELL. FAMILY AT BEDSIDE, TEACHING DONE. PT WAKING UP A LITTLE MORE, ABLE TO EXPRESS NEEDS. BECOMES AGITATED WHEN NEEDING TO VOID. VOIDING FREQUENTLY IN URINAL WITH ASSIST.
--- NOTE | 2016-11-20 10:25 | NUR ---
per v/o of Dr. Ansari hold PT evaluation until 5-30.
--- NOTE | 2016-11-20 12:42 | DIAGNOSTIC IMAGING REPORT ---
PROCEDURE: XR CHEST 1 VIEW INDICATION: Follow up pneumonia. TECHNIQUE: Portable AP view (1215 hours). COMPARISON: Impaired to chest x-ray on 11/19/2016. FINDINGS: Allowing for suboptimal inspiration, there is minimal worsening in moderate left basilar pneumonia. Minor volume loss at the right lung base. 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 Heart and mediastinum are normal size (allowing for the degree of inspiration). IMPRESSION: 1. Allowing for suboptimal inspiration, there is minimal worsening in moderate left basilar pneumonia (e.g., aspiration, bacterial). 2. Minor volume loss at the right lung base. 3. Status post CABG. 4. Findings called to the floor and to Dr. Kal Ansari.
--- NOTE | 2016-11-20 13:30 | NUR ---
PT CRYING WITH EYES CLOSED. APPEARS VERY PAINFUL. MORPHINE GIVEN IV, AND BIPAP REMOVED TO FACILITATE COMMUNICATION. PT REPORTED ABDOMINAL PAIN. UNABLE TO VOID. BLADDER SCAN DONE SHOWING >999 ML. AMAYA CATHETER PLACED AND 1300 ML RETURNED. PT ALSO PASSED MED-LARGE FORMED BM. AFTERWARD, PT SETTLED DOWN AND IS NOW SLEEPING QUIETLY.
--- NOTE | 2016-11-20 17:31 | NUR ---
PT ASSISTED UP TO CHAIR WITH 2 PERSON ASSIST. STILL A BIT SLEEPY, BUT MORE AWAKE AND BREATHING BETTER SITTING UP. TAKING CLEAR LIQUIDS WITHOUT DIFFICULTY. REQUESTING "REAL FOOD." MD NOTIFIED AND ORDER REC'D FOR CONSISTENT CARB DIET. PT SHOULD BE SITTING UP IN CHAIR WHEN TAKING FOOD OR FLUIDS.
--- NOTE | 2016-11-20 18:31 | NUR ---
IS TEACHING DONE. PT USING IS TO 1500. WEANED OFF OXYGEN. SATS NOW 93-97% ON ROOM AIR WHILE AWAKE, SITTING IN CHAIR.
--- NOTE | 2016-11-20 21:47 | NUR ---
PT RESTING IN BED. ALERT AND ORIENTED TO NAME, BIRTHDATE, YEAR - NEEDS REORIENTATION TO MONTH/DAY. NO DISTRESS. RESPIRATIONS IN THE 20'S, O2 SATS ON ROOM AIR AT 96%. TELE SHOWS AFIB. PT HAS NO COMPLAINTS OF PAIN. NO NAUSEA. NO CHEST PAIN, NO HEART PALPITATIONS. TOLERATING DIET ORDERED - MEDICATED PER MEDIUM DOSE SLIDING SCALE FOR A BLOOD GLUCOSE OF 307. PT HAD AN HS SNACK AND FINISHED 100%. WAFFLE MATTRESS IN PLACE. CALL LIGHT WITHIN REACH. FORGETFUL - HISTORY DEMENTIA. NO REQUESTS AT THIS TIME.
[2016-11-21] VITALS (21 sets, daily range): BP systolic 96–140; BP diastolic 43–84
--- NOTE | 2016-11-21 00:18 | NUR ---
PT IS RESTLESS, AGGITATED, WANTS TO LEAVE, STATES "SO [facility] HUH?" [facility] PULLING OFF TELE LEADS AND O2 SAT MONITOR. PT IS TRYING TO UNDRESS. MEDICATED WITH IV ATIVAN. SITTER AT BEDSIDE.
--- NOTE | 2016-11-21 02:05 | NUR ---
2349 DOSE OF ATIVAN INEFFEECTIVE, PT TRYING TO KICK, HIT, SCRATCH AND GRAB AT STAFF, UNCOPERATIVE TO CARE, STATES HE IS LEAVING - THREAT TO STAFF AND SELF - CODE SAMUEL CALLEDDR JARAMILLO ON FLOOR, SOFT RESTRAINTS PLACED TO WRISTS AND ANKLES, ORDERS SIGNED. PT REMAINED AGGITATED, PULLING AT/FIGHTING RESTRAINTS. HALDOL ORDERED - 2MG IV GIVEN ORDERED. HEART RATE AT IN THE LOW 90'S - AFIB NOTED. BLOOD PRESSURE AT 98/65. O2 SATS AT 94% ON 2 LITERS NC.
--- NOTE | 2016-11-21 02:50 | NUR ---
O2 SATS AT 96% ON ROOM AIR, RESPIRATIONS AT 25. LAST BLOOD PRESSURE AT 106/43. URINE OUTPUT BLOOD TINGED, 250ML OUT IN THE LAST 5.5HOURS. CRACKLES TO LUNGS PER RESPIRATORY. NO DISTRESS NOTED. DR JARAMILLO AWARE OF PT STATUS. ORDERS RECIEVED TO DECREASE IV FLUIDS TO 75/HR - WRITTEN, READ BACK AND FAXED TO PHARMACY. NEW ORDER RECIEVED TO GIVE ANOTHER DOSE OF 2MG HALDOL FOR AGGITATIONS - WRITTEN, READ BACK AND FAXED TO PHARMACY. WILL CONTINUE TO MONITOR.
--- NOTE | 2016-11-21 03:15 | NUR ---
DR JARAMILLO AWARE OF PTS CURRENT VITAL SIGNS, RESPIRATIONS AT 31, O2 SATS ON ROOM AIR AT 96%. ORDERS RECIEVED TO HOLD IV MAGNESIUM AT THIS TIME - MAG THIS AM WAS 1.6 - 2 GRAM IV RIDER GIVEN ON DAYS.
--- NOTE | 2016-11-21 06:57 | NUR ---
PT REMAINS IN RESTRAINTS. DR JARAMILLO ON FLOOR TO SEE PT - AWARE OF CURRENTS VITALS/STATUS. HALDOL IV EFFECTIVE IN CALMING PT. PT WAS THREATENING TO STAFF, UNCOOPERATIVE TO CARE, NOT FOLLOWING DIRECTIONS. HITTING, KICKING, GRABBING. PT STATES "YOU'RE ALL GOING TO " YOU'RE ALL EVIL" PT TOLD MACHINE STOPPAGE FREQUENCY CHECKER "I DONT LINVE VERY FAR FROM HERE - IM GOING TO GET MY GUN AND KILL YOU" PT REMAINS ON TELE - DR JARAMILLO HAS SEEN MOST CURRENT RHYTHM.
--- NOTE | 2016-11-21 07:20 | NUR ---
TELE STRIP SHOWN TO DR CLEMENT - QUESTIONABLE NEW BBB - NO NEW ORDERS RECIEVED AT THIS TIME.
--- NOTE | 2016-11-21 09:30 | NUR ---
PT STILL IN RESTRAINTS, FAIRLY LETHARGIC, BUT WHEN ROUSED, GETS AGITATED, GROWLS AT STAFF AND RESISTS CARE. AT BEDSIDE. CONTINUES TO HAVE ADEQUATE O2 SATS ON ROOM AIR.
--- NOTE | 2016-11-21 10:29 | NUR ---
pt agitated and not appropriate for PT evaluaton at this time. Will ck bk 11-22
--- NOTE | 2016-11-21 11:00 | NUR ---
PT MORE CALM AT THIS TIME. RESTRAINTS REMOVED AND PT NO LONGER TRYING TO HIT OR KICK. ASSISTED UP TO CHAIR, GAIT UNSTEADY, WEAK. PT REQUIRING LOTS OF QUEING TO FOLLOW DIRECTION. REFUSED BREAKFAST THIS AM. BREATHING EASILY WHEN SITTING UP IN CHAIR, SLIGHTLY TACHYPNEIC. NON-PRODUCTIVE, WHEEZY COUGH. WCTM.
--- NOTE | 2016-11-21 16:01 | Progress Note ---
Subjective General Pt seen and examined. Patient was agitated during the night time and got some sedation. Patient this morning was too sedated however his breathing was appropriate. Patient is currently stable. Constitutional Other (unable to assess- sedated ). Physical Exam Vital Signs / I&Os Vital Signs Date Time Temp Pulse Resp B/P Pulse O2 O2 Flow FiO2 Ox Delivery Rate 11/21 1515 60 20 133/64 97 / 1409 97.5 70 24 116/69 96 11/21 1310 72 24 100/52 96 Room Air 11/21 1254 77 26 106/59 97 Room Air 11/21 1225 88 24 140/68 98 Room Air 11/21 1124 83 21 114/53 98 Room Air 11/21 1010 97.9 98 25 104/83 99 Room Air 11/21 0857 91 20 103/61 95 Room Air 11/21 0803 93 27 123/65 97 Room Air 11/21 0800 Room Air 11/21 0705 97.9 82 25 96/62 92 Room Air 11/21 0631 93 11/21 0623 97.5 104 24 114/63 96 Room Air 11/21 0530 97 26 110/77 95 Room Air 11/21 0417 99.0 92 25 98/44 96 Room Air 11/21 0408 85 11/21 0313 99.3 104 29 123/52 95 Room Air 11/21 0230 109 28 106/43 95 Room Air 11/21 0142 88 / 0130 95 32 98/65 96 Nasal 1.0 Cannula 11/21 0019 98 29 125/84 100 Room Air 11/20 2337 98.2 92 30 132/61 97 Room Air 11/20 2211 82 24 115/58 94 11/20 2109 141/76 11/20 2108 81 26 96 11/20 2009 80 20 123/77 96 Nasal 1.0 Cannula 11/20 1957 Room Air 11/20 1916 68 11/20 1903 70 24 119/59 92 Nasal 1.0 Cannula 11/20 1804 98.1 63 19 105/48 96 Nasal 1.0 Cannula 11/20 1701 73 23 107/51 95 Nasal 1.0 Cannula 11/20 1605 72 18 120/55 95 Nasal 1.0 Cannula I&O 11/20 0800 11/20 1600 11/21 0000 Intake Total 250 2347 Output Total 2682 550 Balance 250 -2682 1797 General Appearance Moderate distress, - non- cooperative HEENT Atraumatic, PERRLA, Moist mucous membranes Neck Supple, No JVD, No thyromegaly Cardiovascular - irregularly irregular rhythm Abdomen Soft, No tenderness Pelvic No masses Skin No Breakdown, No Significant Lesions Neurological Normal tone, Cranial nerves intact, No lateralizing signs Psych/Mental Status Confused LAB Results Laboratory Tests 11/21 0730 Chemistry Plasma Sodium (136 - 145 mmol/L) 140 Plasma Potassium (3.5 - 5.1 mmol/L) 4.7 Plasma Chloride (98 - 107 mmol/L) 104 CO2 (Enzymatic) (21 - 32 mmol/L) 20 BUN (7 - 18 mg/dL) 30 Creatinine (0.6 - 1.3 mg/dL) 1.7 Est GFR ( Amer) (mL/min) 49.83 Est GFR (Non-Af Amer) (mL/min) 41.11 Glucose (70 - 110 mg/dL) 304 Plasma Calcium (8.5 - 10.1 mg/dL) 8.8 Total Bilirubin (0.0 - 1.0 mg/dL) 0.2 AST (15 - 37 U/L) 54 ALT (12 - 78 U/L) 30 Alkaline Phosphatase (46 - 116 U/L) 54 Total Protein (6.4 - 8.2 g/dL) 7.7 Albumin (3.3 - 5.0 g/dL) 3.1 Coagulation INR (0.8 - 1.2) 3.3 Hematology WBC (4.5 - 11.5 K/uL) 19.0 RBC (4.50 - 5.90 M/uL) 3.77 Hgb (13.5 - 17.5 gm/dL) 11.4 Hct (41.0 - 53.0 %) 34.9 MCV (80 - 100 fL) 93 MCH (26 - 34 pg) 30 RDW (11.6 - 14.8 %) 14.6 Gran % 89.9 Lymph % (Auto) (25 - 40 %) 7.4 [place] % (Auto) (3 - 14 %) 2.7 Plt Count, EDTA (150 - 400 K/uL) 176 PUBS MCHC (31 - 37 g/dL) 33 Assessment and Plan Problem List 1. Left lower lobe pneumonia Plan - stable - will continue with ceftriaxone and azithromycin - COPD component present - will continue with methylprednisolone 40 mg bid for copd exacerbation - will c/w duonebs as scheduled - will hold off bipap for the time being 2. Hypoxia Plan - no more episodes of hypoxia noted 3. Afib Plan - pt has been relatively rate controlled - will c/w home medications 4. Diabetes mellitus Plan - stable - will c.w sliding scale coverage - will c/w metformin and glyburide
--- NOTE | 2016-11-21 19:30 | NUR ---
PT HAS SPENT MOST OF THE DAY UP IN THE CHAIR, INTERMITTENTLY SLEEPING. NO EVIDENCE OF DISTRESS. CALM, LETHARGIC. ATE LUNCH AND DINNER WITH ENCOURAGEMENT, AND HAS VISITED WITH SOME FAMILY. DR. JARAMILLO AT BEDSIDE, SPEAKING WITH AND PATIENT. DISCUSSED PLAN OF CARE. SEVERAL CHANGES MADE TO ATTEMPT TO PROVIDE SOOTHING ENVIRONMENT OVERNIGHT. HEARING AIDS IN PLACE, LIGHTS ON, SPOUSE WITH STAY THE NIGHT. REPORT AND CARE TO COURTNEY MÁRUQEZ.
--- NOTE | 2016-11-21 21:23 | NUR ---
PT BACK TO BED WITH 1 PERSON ASSIST - A LITTLE UNSTEADY - NEEDS MINIMAL DIRECTION. ALERT AND ORIENTED TO NAME, BIRTHDATE AND "[facility]" - NEEDS REORIENTATION TO TIME/DATE. AT BEDSIDE TO SPEND THE NIGHT. PT REPLIES "JUST A LITTLE PAIN" TO LEFT SHOULDER - DECLINES PAIN MEDCAITION. COOPERATIVE TO CARE. PLEASANT. FOLLOWS COMMANDS. AMAYA IN PLACE - DRAINING CLEAR YELLOW URINE - STABILIZED TO LEG. IV TO LF INFUSING AT 75/HR - UNREMARKABLE. IV TO RFA UNREMARKABLE AND SALINE LOCKED. ROOM AIR SATS AT 98%. NO CHEST PAIN, NO HEART PALPITATIONS. NO NAUSEA - TOLERATING DIET ORDERED. MEDICATED WITH INSULIN PER SLIDING SCALE ORDERS - PT ATE 100% OF HS SNACK. REORIENTED TO CALL LIGHT. TELE SHOWS AFIB - HEART RATE AT 84. LAST BLOOD PRESSURE AT 124/72. WILL CONTINUE TO MONITOR.
[2016-11-22 01:04] VITALS: BP 158/92
--- NOTE | 2016-11-22 05:14 | Progress Note ---
Subjective General Note Date: 11/22/2016 Admission Date: 11/20/2016 Hospital Day: 3 PCP: Josh Status: Fair Advanced Directive: Available Room: 303 Pt seen and examined. He had minimal overnight issues. However this morning he became restless and agitated. Nursing and security was called into the room. was present during the proceedings. He was alert agitated, confused. Asked him multiple times to go home, patient attempting to get out of bed. Patient was given Seroquel overnight. Patient was given 5 mg IV Haldol @0430. This is followed by another 5 mg Haldol 0515. Early to moderate signs of dementia. Mild degree of delirium Patient is working hard including respiratory effort. Physical Exam Vital Signs / I&Os Vital Signs Date Time Temp Pulse Resp B/P Pulse O2 O2 Flow FiO2 Ox Delivery Rate 11/22 0104 98.2 78 28 158/92 96 Room Air 0.0 11/212 98.2 84 22 124/72 97 Room Air 11/21 2023 69 11/21 1930 Room Air 11/21 1908 70 27 127/53 97 11/21 1809 97.9 66 23 96/55 95 11/21 1631 80 11/21 1627 82 26 121/76 93 11/21 1515 60 20 133/64 97 11/21 1409 97.5 70 24 116/69 96 11/21 1310 72 24 100/52 96 Room Air 11/21 1254 77 26 106/59 97 Room Air 11/21 1225 88 24 140/68 98 Room Air 11/21 1124 83 21 114/53 98 Room Air 11/21 1010 97.9 98 25 104/83 99 Room Air 11/21 0857 91 20 103/61 95 Room Air 11/21 0803 93 27 123/65 97 Room Air 11/21 0800 Room Air 11/21 0705 97.9 82 25 96/62 92 Room Air 11/21 0631 93 11/21 0623 97.5 104 24 114/63 96 Room Air 11/21 0530 97 26 110/77 95 Room Air I&O 11/21 0800 11/21 1600 11/22 0000 Intake Total 978 1140 1141 Output Total 490 293 200 Balance 488 847 941 General Appearance confusion, lack of cooperation, signs of delirium. Lungs Clear to auscultation Neck Supple Cardiovascular Normal S1 and S2 Extremities Normal pulses Skin No Significant Lesions Neurological Normal gait LAB Results Laboratory Tests 11/21 0730 Chemistry Plasma Sodium (136 - 145 mmol/L) 140 Plasma Potassium (3.5 - 5.1 mmol/L) 4.7 Plasma Chloride (98 - 107 mmol/L) 104 CO2 (Enzymatic) (21 - 32 mmol/L) 20 BUN (7 - 18 mg/dL) 30 Creatinine (0.6 - 1.3 mg/dL) 1.7 Est GFR ( Amer) (mL/min) 49.83 Est GFR (Non-Af Amer) (mL/min) 41.11 Glucose (70 - 110 mg/dL) 304 Plasma Calcium (8.5 - 10.1 mg/dL) 8.8 Total Bilirubin (0.0 - 1.0 mg/dL) 0.2 AST (15 - 37 U/L) 54 ALT (12 - 78 U/L) 30 Alkaline Phosphatase (46 - 116 U/L) 54 Total Protein (6.4 - 8.2 g/dL) 7.7 Albumin (3.3 - 5.0 g/dL) 3.1 Coagulation INR (0.8 - 1.2) 3.3 Hematology WBC (4.5 - 11.5 K/uL) 19.0 RBC (4.50 - 5.90 M/uL) 3.77 Hgb (13.5 - 17.5 gm/dL) 11.4 Hct (41.0 - 53.0 %) 34.9 MCV (80 - 100 fL) 93 MCH (26 - 34 pg) 30 RDW (11.6 - 14.8 %) 14.6 Gran % 89.9 Lymph % (Auto) (25 - 40 %) 7.4 [place] % (Auto) (3 - 14 %) 2.7 Plt Count, EDTA (150 - 400 K/uL) 176 PUBS MCHC (31 - 37 g/dL) 33 Assessment and Plan Problem List 1. Left lower lobe pneumonia Plan Patient is responding to generalized care. Sepsis workup based on pneumonia and elevated LA Following blood cultures. Continue with the IV antibiotics. Ceftriaxone and azithromycin Maintain respiratory support. No profound changes on chest x-ray. Sugars saturations generalized vitals. 2. Sepsis Plan Following blood cultures; so far all have been no growth. Resolving pneumonia. Patient on continued antibiotics. Admission status downgraded from CCU tele to AC. . 3. Diabetes mellitus Plan Insulin sliding scale. Patient tolerating home meds. Blood sugars have been in appropriate range Diet; carbohydrate consistent 4. Afib Plan Rate controlled on current therapy Monitor pro time; continue the same home dosage (titration based INR values) Maintaining prophylaxis for DVTs and A. fib. 5. Hypoxia Plan Found as hypoxic on room air on admission. This required 8-12 hours of oxygen therapy, now it's discontinued. Continue well-known saturations. Patient on room air at this time. Pneumonia resolving. 6. Agitation Plan Patient is having agitation on most nights, in the setting of early dementia. Patient has ample support at home. Due to the agitation; patient was given Haldol as needed. This has helped to calm and improve his profile. Caution with pharmaceutical restraints. Starting second generation; Seroquel. Starting dose of 25 mg by mouth twice a day. Current status: Guarded Anticipated discharge date: 1-2 days Anticipated discharge placement: Home possibilities Patient care time: Time spent in chart review, patient interview, physical exam, CPOE, and care documentation: 30 minutes Visit to patient today: 2 Complexity of care: Moderate
--- NOTE | 2016-11-22 05:51 | NUR ---
PT AWOKE ABOUT 0430, AGGITATED, NOT FOLLOWING COMMANDS, PT WAS MEDICATED WITH IV ATIVAN WHICH WAS INEFFECTIVE, FOLLOWED BY IV HALDOL - PT CONTINUE TO TRY AND GET OUT OF BED, PULLING AT AMAYA, PULLING IV LINES, PULLING TELE LEADS OFF. DR JARAMILLO AT THE BEDSIDE WITH PT. RESTRAINTS PLACED AT 0500 PER ORDERS. PT IS STRAIGHT AC AT THIS TIME. TELE LEADS OFF. REMAINS AT BEDSIDE. WILL CONTINUE TO MONITOR.
[2016-11-22 07:03] VITALS: BP 136/70
--- NOTE | 2016-11-22 08:00 | NUR ---
ON ASSESSMENT, PT LETHARGIC, RESISTANT WHEN ROUSED. RESTRAINTS IN PLACE TO BILAT WRISTS AND ANKLES DUE TO AGITATED/THREATENING BEHAVIOR OVERNIGHT. AT BEDSIDE. VSS.
[2016-11-22 10:09] VITALS: BP 147/66
--- NOTE | 2016-11-22 11:00 | NUR ---
RESTRAINTS REMOVED AT 0910 AND PT ASSISTED UP TO CHAIR. GAIT MORE STEADY THIS MORNING, PT FOLLOWING COMMANDS. ONCE IN CHAIR, PT BEGAN DOZING. UP AGAIN WITH PHYSICAL THERAPY, GAIT STEADY USING WALKER, PT AMBULATED FROM CHAIR OUT INTO HALLWAY. WHEEZY AND SOB WITH THIS EXERTION.
--- NOTE | 2016-11-22 14:00 | NUR ---
PT DECIDED THAT HE WANTED TO GET UP AND WALK. STOOD UP WITH ASSIST, THEN AMBULATED WITH WALKER, SBA. BECAME FATIGUED AFTER ONE LOOP AND WAS ASSISTED INTO WC. PT'S FAMILY TOOK HIM AROUND IN WC FOR A CHANGE OF SCENERY. MONIQUE PETERSON'Kan AT 1230. AWAITING VOID. PT WAS TOO LETHARGIC FOR LUNCH AND ONLY HAD A FEW BITES. NOW SLEEPING QUIETLY IN CHAIR.
--- NOTE | 2016-11-22 14:33 | NUR ---
NUTRITION ASSESSMENT: S: Pt admitted with dx/o PNA. 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 Pt has apparently been more confused in hospital vs baseline at home per care staff. Eating range of ~0-100%. O: Diet Rx: Consistent Carb Soft and Cut up thin liquids NKFA Wts: 94.3 kg ht: 65" IBW: 55-69 kg BMI: 34.6 %IBW: ~136% ABW: ~76 kg Est Kcals: ~1733-4205 kcals per day Est Pro: ~60-70 g per day Est Fluids: ~per MD Meds Incl: atenolol, lipitor, glimeperide, high dose SSI, protonix, seroquel, warfarin, (pt was on at home) see eMar for complete list/details. Labs Incl: (11/20) glucose 186, BUN 28, Creat 1.2, Na+ 137, K+ 4.8, mag 1.6, Ca+ 8.7, A1c: 7.2 (est ave 160), HCT 35.6, HGB 11.7, MCV 94, MCH 31 Skin: Saravanan Score 19; waffle overlay in place Accuchecks: 190-310 A: Pt po intake appears variable, which is likely 2/2 confusion/behaviors? CCD diet in place 2/2 hx/o diabetes. Rev'd blood sugars, high dose SSI in place as well as glimeparide, continue to monitor. Noted predisone d/c'd which may help with lower blood sugars. A1c noted. No pressure sores reported, however waffle overlay in place to help with prevention of skin breakdown. Rec continue to encourage po and fluids, RD to follow up and monitor nutrition indices prn/protocol. P: 1. [place]cor[place] PO and fluids 2. RD to follow up prn/protocol.
[2016-11-22 14:34] VITALS: BP 107/52
[2016-11-22 17:59] VITALS: BP 106/54
--- NOTE | 2016-11-22 18:31 | NUR ---
PT SLEPT IN CHAIR FOR SEVERAL HOURS. WOKE AND ATE DINNER AND IS NOW VISITING WITH FAMILY. VOIDED IN URINAL AT 1800 WHEN ENCOURAGED. VSS. CONTINUES TO HAVE O2 SATS 97-98% ON ROOM AIR.
--- NOTE | 2016-11-22 20:24 | NUR ---
PT RESTING UP IN CHAIR. DROWSY. ALERT TO NAME AND BIRTHDATE - NEEDS REORIENTATION TO PLACE AND TIME. NO COMPLAINTS OF PAIN. NO SOB NOTED. PRODUCATIVE COUGH - THICK, YELLOW SPUTUM NOTED. COOPERATIVE TO CARE AT THIS TIME. PT MEDICATED WITH SC INSULIN PER HIGH DOSE SLIDING SCALE. PT GIVEN HS SNACK. CALL LIGHT WITHIN REACH. NO FURTHER REQUESTS AT THIS TIME.
[2016-11-22 23:09] VITALS: BP 135/77
--- NOTE | 2016-11-23 00:13 | NUR ---
2310 CORRESPONDENT IN TO ASSESS PTS VITALS AND ASK PT IF HE NEEDED TO VOID. CORRESPONDENT STATES TO PT - "I NEED TO BLADDER SCAN YOU IF YOU CAN'T PEE" - PT STATES "I HAVE TO PEE" - OFFERED PT THE URINAL, PT REFUSED URINAL, TRYING TO GET OUT OF BED. ATTEMPTED TO HAVE PT VOIDIN COMODE WITH 2 PERSON ASSIST - PT WAS PUSHING, UNSTEADY ON FEET. PT WAS PLACED BACK IN BED - UNABLE TO VOID, UNABLE TO USE URINAL. BLADDER SCAN SHOWED 505ML. DR CLEMENT AT BEDSIDE. PT WAS UNCOOPERATIVE TO CARE, UNABLE TO FOLLOW COMMANDS, CONFUSED. ATTEMPTING TO PULL OUT IV. PT WAS VERY AGGITATED AT THIS TIME. HALDOL 5MG ORDERED AND GIVEN. ORDERS TO PLACE AMAYA CATHETER AND PLACE PT IS RESTRAINTS GIVEN BY DR CLEMENT. 4 POINTS SOFT RESTRAINTS PLACED. AMAYA CATHETER, 14 KHMER, SILICONE PLACED BY RN USING APPROPRIATE ASEPTIC TECHNIQUE. ZYPREXA (ODO) GIVEN. PT PLACED ON CONTNIUOUS O2 SATS MONITOR. O2 SATS AT 97% ON ROOM AIR. PT IS WITHIN SITE OF NURSES STATION. WILL CONTINUE TO MONITOR.
[2016-11-23 02:48] VITALS: BP 159/94
--- NOTE | 2016-11-23 06:36 | Progress Note ---
Subjective General Note Date: 11/23/2016 Admission Date: 11/20/2016 Hospital Day: 4 PCP: Josh Status: Fair Advanced Directive: Full Code Room: 303 Patient was seen and examined at bedside. He states that he is feeling all right. Patient had a challenge during the night. Patient was given 5 mg Haldol + Xyprexa for combativeness and anxiety. He was retaining urine. Retension to 500 mils in the bladder. Patient had difficult time with restraints. Patient has a good appetite and his breathing is fairly normal. Constitutional Denies: Chills. Respiratory Wheezing. Denies: Sputum. Cardiovascular Denies: Palpitations. Gastrointestinal Denies: Abdominal Pain. Physical Exam Vital Signs / I&Os Vital Signs Date Time Temp Pulse Resp B/P Pulse O2 O2 Flow FiO2 Ox Delivery Rate 11/23 0248 98.1 92 26 159/94 97 Room Air 11/22 2309 98.1 78 24 135/77 96 Room Air 11/22 2020 Room Air 11/22 1759 98.1 81 24 106/54 95 11/22 1434 97.9 56 16 107/52 100 11/22 1009 97.9 41 22 147/66 97 Room Air 0.0 11/22 0945 72 11/22 0800 Room Air 11/22 0703 98.2 104 28 136/70 92 Room Air I&O 11/22 0800 11/22 1600 11/23 0000 Intake Total 1167 500 894 Output Total 375 550 200 Balance 792 -50 694 General Appearance Oriented X3, Cooperative, No acute distress Lungs Normal air movement, inspiratory wheeze clear air movemenet. paradoxical respiration. Normal saturations. Cardiovascular Normal S1 and S2, No murmurs, gallops, rubs Extremities No edema, Normal pulses Psych/Mental Status mild confusion. LAB Results Laboratory Tests 11/22 11/22 11/23 11/23 0840 1120 UNK 0515 Chemistry Plasma Sodium (136 - 145 mmol/L) 133 Cancelled 144 Plasma Potassium (3.5 - 5.1 mmol/L) 4.7 Cancelled 4.7 Plasma Chloride (98 - 107 mmol/L) 103 Cancelled 109 CO2 (Enzymatic) (21 - 32 mmol/L) 23 Cancelled 22 BUN (7 - 18 mg/dL) 34 Cancelled 36 Creatinine (0.6 - 1.3 mg/dL) 1.5 Cancelled 1.3 Est GFR ( Amer) (mL/min) 57.57 Cancelled >60 Est GFR (Non-Af Amer) (mL/min) 47.50 Cancelled 56.03 Glucose (70 - 110 mg/dL) 241 Cancelled 205 Plasma Calcium (8.5 - 10.1 mg/dL) 8.6 Cancelled 8.6 Total Bilirubin (0.0 - 1.0 mg/dL) 0.2 Cancelled 0.3 AST (15 - 37 U/L) 117 Cancelled 66 ALT (12 - 78 U/L) 42 Cancelled 44 Alkaline Phosphatase (46 - 116 U/L) 53 Cancelled 54 Total Protein (6.4 - 8.2 g/dL) 7.5 Cancelled 7.2 Albumin (3.3 - 5.0 g/dL) 3.0 Cancelled 3.0 Coagulation INR (0.8 - 1.2) 3.6 Cancelled 3.1 Hematology WBC (4.5 - 11.5 K/uL) 19.7 Cancelled 17.1 RBC (4.50 - 5.90 M/uL) 3.80 Cancelled 3.74 Hgb (13.5 - 17.5 gm/dL) 11.7 Cancelled 11.4 Hct (41.0 - 53.0 %) 35.6 Cancelled 34.8 MCV (80 - 100 fL) 94 Cancelled 93 MCH (26 - 34 pg) 31 Cancelled 31 RDW (11.6 - 14.8 %) 15.3 Cancelled 15.4 Neut % (Auto) (50 - 75 %) 87.3 84.8 Lymph % (Auto) (25 - 40 %) 6.6 7.8 [place] % (Auto) (3 - 14 %) 6.0 7.3 Eos % (Auto) (0 - 4 %) 0 0 Baso % (Auto) (0 - 2 %) 0.1 0.1 Plt Count, EDTA (150 - 400 K/uL) 219 Cancelled 237 PUBS MCHC (31 - 37 g/dL) 33 Cancelled 33 Assessment and Plan Problem List 1. Left lower lobe pneumonia Plan Lower lobe pneumonia resolving Will complete 10 days total antibiotics. Patient will go home with additional 5 days of Omnicef for coverage for third- generation cephalosporin. Completed azithromycin. 2. Sepsis Plan Sepsis; no positive blood cultures patient's blood pressures are maintained well resolving pneumonia. Lactic acidemia resolved 3. Diabetes mellitus Plan Patient has essentially resumed his home diabetic protocol. Continue with the metformin with thousand milligrams twice a day Maintain on the 4 mg twice a day Glimepride 4. Afib Plan History of A. fib; on anticoagulation. Patients on an approximate 7.5 mg warfarin daily. No changes. 5. Hypoxia Plan Seen as hypoxic on room air; now normalized. Follow-up with primary care. 6. Agitation Plan Agitation and combativeness. Seems to be sundowning at night. 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 May be a sign of advancing dementia. Patient was started on Seroquel 50 mg 3 times a day. This will be changed to Xyprexa 10 mg at bedtime; so patient will be discharged with the 10 mg Xyprexa dosage. 7. Urinary retention Plan This is likely side effect from the antipsychotic. Patient will given Flomax 0.4 mg taken twice a day Recommending that primary care titrates the dosage. Current status: Guarded Anticipated discharge date: 1-2 days Anticipated discharge placement: Home possibilities Patient care time: Time spent in chart review, patient interview, physical exam, CPOE, and care documentation: 30 minutes Visit to patient today: 1 Complexity of care: Moderate E&M Codes Rounding: Inpt-High/[id number]
[2016-11-23 06:37] VITALS: BP 159/91
--- NOTE | 2016-11-23 06:59 | NUR ---
PT IS COOPERATIVE TO CARE AT THIS TIME. FOLLOWING COMMANDS. RESTRAINTS REMOVED. DR AJRAMILLO IN ROOM TO ASSESS PT. RESPIRATORY THERAPIST CALLED FOR TREATMENT. O2 SATS ON ROOM AIR AT 95%.
--- NOTE | 2016-11-23 12:04 | NUR ---
This PT A RN as pt was completed with [facility] Pt able to stand on one foot at a time as a brief was placed onto each foot. pt began to turn with FWW CGA and stopped to cough. As pt coughed into his tissue he began to increase his squat stance and needed v/c to stand up straight. pt ambulated 10ft and had an increasingly difficult time clearing the floor with the L foot. As pt became increasingly unsteady he was in agreement to sit down. pt sat in W/C and wheeled around the hallways. Once back in room pt completed sit to stand using a FWW CGA and ambulated 5 ft to the chair. pt's was in room and advised that pt may need a w/c or transfer chair at home for days that he has difficulty walking longer distances. This PT was given report that pt ambulated another 50ft after the initial PT evaluation yesterday and that pt may not have had a good nights rest which could be factors into why his gait pattern is different compared to yesterday. pt is still safe to d/c home as long as he has increased 24/7 A at home from spouse and DTRs which they have said they feel comfortable with doing.
[2016-11-23 14:46] VITALS: BP 137/71
[2016-11-23 18:35] VITALS: BP 114/66
--- NOTE | 2016-11-23 18:38 | NUR ---
1040: AMAYA REMOVED AND A DOSE OF FLOMAX GIVEN. PLEASANT AND COOPERTIVE. NO S/S OF COMBATIVE OR AGITATED BEHAVIOR. FAMILY AT THE BEDSIDE. MD AWARE INR 3.1 AND TO STILL GIVE 5MG WARFARIN @ 1400. 1615: PT ABLE TO URINATE IN THE URINAL WITH HELP AND VOIDED 450cc. 1845: WATCHING TV WITH HIS AT THE BEDSIDE. AMBULATED THE HALLWAY WITH PT EARLIER TODAY. PT WAS ABLE TO AMBULATE A FEW FEET. SOB WITH ACTIVITY. RECOVERS QUICKLY AT REST. 95% SATURATION ON RA. DC HOME PROBABLE TOMORROW.
[2016-11-23 22:03] VITALS: BP 155/92
[2016-11-24 01:45] VITALS: BP 158/69
--- NOTE | 2016-11-24 03:06 | NUR ---
PATIENT WAS SITTING IN THE CHAIR UPON ASSESSMENT AT 1900. PLEASANT AND COOPERATIVE AT THE TIME. TOOK ALL HIS PILLS FOR THIS RN. AT BEDSIDE. WAS UPSET AND CRYING AND SAID "HE DOESNT KNOW WHO I AM, HE ASKED ME IF I WORKED HERE". ABOUT AN HOUR LATER HE WAS ATTEMPTING TO CRAWL OUT OF BED AFTER THE IV ANTIBIOTIC WAS HUNG AND KEPT LOOKING AT TUBING. BECAME AGIGATED, STATED "YOURE DRUGGING ME". DISCONNECTED THE TUBING FROM IV FOR THE TIME BEING. WAS COMPLAING OF ABD PAIN, BUT STATED "DO NOT GIVE ME ANY MORE PILLS". THEN PATIENT ASKED FOR HIS , WHICH WAS IN THE WAITING AREA. WIEF BACK TO ROOM TO SPEAK TO PATIENT, AND STATED THAT HE REMEMBERED WHO SHE WAS AND THAT HE WAS CRYING WHEN TALKING TO HER. PATIENT SETTLED DOWN THEREAFTER. IN ROOM SLEEPING WELL. PATIENT HAS BEEN SLEEPING SINCE, HAS BEEN COOPERATIVE WITH CARE. WAKES UP WHEN HAS TO VOID. BED ALARM IS ON. WILL MONITOR.
[2016-11-24 05:58] VITALS: BP 164/90
[2016-11-24] MEDS ORDERED: OLANZAPINE ODT5 MG PO (09:44)
[2016-11-24] MEDS ORDERED: CEFTIN500 MG PO (09:46)
--- NOTE | 2016-11-24 09:48 | Provider's Discharge Care Plan ---
Problem, Goal, Plan Problem List 1. Left lower lobe pneumonia Goals: Improve disease control, Prevent disease progress Instructions: Follow up as directed, Take meds as directed 2. Chronic anticoagulation Goals: Improve disease control, Prevent disease progress Instructions: Follow up as directed, Take meds as directed
--- NOTE | 2016-11-24 09:51 | Progress Note ---
Subjective General Note Date: November 24, 2016 Admission Date: November 20, 2016 Hospital Day: 5 PCP: Shorty Moreno M.D. Status: Inpatient, ACU Advanced Directive: FULL CODE Room: 303 Admission History: The patient is a 81-year-old white male with a significant past mental history of atrial ablation, coronary artery disease, diabetes mellitus type 2, hypertension, osteoarthritis, who presented to [facility] emergency department on the day of admission secondary to complaints of cough fever and shortness of breath. [facility] ER evaluation was consistent with left lower lobe pneumonia, rule out sepsis, atrial fibrillation, chronic anticoagulation, and diabetes mellitus. Secondary to the above, the patient was admitted by Mitchel Hernandez M.D. for further evaluation and treatment. For other history present illness, past medical history, family history, social history, review of systems, and admission physical examination please see the patient's history and physical examination and ER visit note in the patient's medical record. Subjective: The patient states she is doing well today. Patient and his feel he stated for discharge at this time. Denies any cough or significant shortness of breath. Requires no ongoing supplemental oxygen administration. Ambulating with assistance/walker Patient requests: None Medications and Allergies Medications Current Medications Sig/Ruth Start time Last Medication Dose Route Stop Time Status Admin Olanzapine 10 MG 2100 11/23 2100 AC 11/23 PO 2031 Tamsulosin HCl 0.8 MG QHS 11/23 2100 CAN PO Warfarin Sodium 5 MG DAILY@1400 11/23 1400 AC 11/23 PO 1405 Tamsulosin HCl 0.4 MG Q12HR 11/23 1018 AC 11/24 PO 0849 Pantoprazole Sodium 40 MG 00 11/23 0600 AC 11/24 Sesquihydrate PO 0744 Haloperidol Lactate 5 MG ONCE 11/22 2330 AC 11/22 IV 2340 Haloperidol Lactate 5 MG ONCE PRN 11/22 2330 AC 11/23 IV 0338 Albuterol Sulfate 2.5 MG Q6H PRN 11/22 1200 AC 11/23 IN 0712 Insulin Human Lispro See Dose ACHS 11/21 0730 AC 11/23 Insts (1) SC 2021 Dextrose See Dose Q15MIN PRN 11/21 0430 AC Insts (2) IV Dextrose See Dose Q15MIN PRN 11/21 0430 AC Insts (3) PO Dextrose/Water 1,000 ML ASDIRECTED PRN 11/21 0430 AC IV Glucagon 1 MG Q15MIN PRN 11/21 0430 AC IM Ceftriaxone Sodium/ 50 ML QHS 11/20 2100 AC 11/23 Dextrose IV 2145 Metformin HCl 1,000 MG BID 11/20 2100 AC 11/24 PO 0845 Atorvastatin Calcium 40 MG QPM 11/20 1800 AC 11/23 PO 1717 Glimepiride 4 MG DAILY 11/20 1716 AC 11/24 PO 0845 Atenolol 25 MG DAILY 11/20 09 AC 11/24 PO 0845 Lisinopril 20 MG DAILY 11/20 09 AC 11/24 PO 0845 Lorazepam See Dose Q4H PRN 11/20 0300 AC 11/22 Insts (4) IV 0437 Acetaminophen 650 MG Q6H PRN 11/20 0245 AC PO Al Hydrox/Mg Hydrox/ 15 ML Q1H PRN 11/20 0245 AC Simethicone PO Atropine Sulfate 0.5 MG Q3MIN PRN 11/20 0245 AC IV Lidocaine HCl See Dose ONCE PRN 11/20 024 AC Insts (5) IV Magnesium Hydroxide 10 ML DAILY PRN 11/20 0245 AC PO Morphine Sulfate 2 MG Q3M PRN 11/20 0245 AC 11/20 IV 1218 Nitroglycerin 0.4 MG Q5M PRN 11/20 024 AC SL Ondansetron HCl 4 MG Q6H PRN 11/20 0245 AC IV Sodium Chloride 1,000 ML ASDIRECTED 11/20 024 AC 11/22 IV 2241 Dose Instructions: (1)Insulin Human Lispro: HIGH DOSE: ACCUCHECK AND SLIDING SCALE >>To change sliding scale DISCONTINUE this order and enter a NEW order. Thanks< (2)Dextrose: 25 OR 50 ML SEE ADMIN CRITERIA (3)Dextrose: 1 OR 2 TUBES SEE ADMIN CRITERIA (4)Lorazepam: 0.5 - 1 MG (5)Lidocaine HCl: 1.5 MG/KG Allergies Coded Allergies: NKA (11/20/16) Physical Exam Vital Signs / I&Os Vital Signs Date Time Temp Pulse Resp B/P Pulse O2 O2 Flow FiO2 Ox Delivery Rate 11/24 0845 84 11/24 0558 98.2 87 20 164/90 98 Room Air 11/24 0145 98.1 70 22 158/69 97 Room Air 11/233 97.5 83 20 155/92 96 11/24 1999 Room Air 11/23 1835 97.9 87 20 114/66 97 11/23 1446 97.5 57 20 137/71 96 I&O 11/24 0000 11/23 1600 11/23 0800 Intake Total 1390 320 Output Total 925 1000 1050 Balance 465 680 -1050 General Appearance Alert, Cooperative, No acute distress Lungs Normal air movement, Scattered rhonchi Cardiovascular Normal S1 and S2, irregular rhythm, rate normal Abdomen Normal bowel sounds, Soft, No tenderness, No guarding Extremities No cyanosis, No clubbing Neurological Cranial nerves intact, No lateralizing signs Psych/Mental Status Mood normal, Confused Assessment and Plan Problem List 1. Left lower lobe pneumonia Plan -Much improved -Blood cultures negative -Afebrile -Persistent leukocytosis but improved -Plan discharge today with outpatient follow-up 2. Diabetes mellitus Plan -Well-controlled -Fasting blood sugar 107 this a.m. -Continue present medical therapy -Discharge today -Outpatient follow-up with PCP next week 3. Afib Plan -Heart rate well controlled. -Heart rate 78 this a.m. -Continue present therapy 4. Chronic anticoagulation Status Chronic Onset Date Unknown Plan -Patient with chronic anticoagulation -INR 3.1 -Continue Coumadin 5 mg by mouth daily -Follow up early next week for repeat INR 5. Urinary retention Plan -Urinating well -Flomax 0.4 mg by mouth daily -Outpatient follow-up with PCP 6. Agitation Plan -Patient with findings of mild dementia/agitation -Patient responded well to Zyprexa 10 mg by mouth daily at bedtime -No significant somnolence -Discussed weaning of medication post discharge when patient residing in familiar environment -Follow up early next week with PCP for adjustments in medical therapy Current status: Fair, improved Anticipated discharge date: Today Anticipated discharge placement: Home Patient care time: Time in chart review, patient interview, physical exam, CPOE, and care documentation: 30 mins Visit to patient today: 2 Complexity of care: Moderate E&M Codes Discharge: Inpt >30 min spent/99025
--- NOTE | 2016-11-24 10:35 | NUR ---
Patient has been up to his chair all morning. Productive cough. Ambulated in hallway with PT and was steady on his feet. VSS, afebrile. Discharge prescriptions called in to [facility].
[2016-11-24 10:59] VITALS: BP 117/67
--- NOTE | 2016-11-24 11:02 | NUR ---
pt seated in chair upon entering room. pt completed sit to stand using a FWW CGA. pt ambulated 250ft CGA using a FWW Min v/c for body mechanics. pt had a seated break for 5min and then completed sit to stand CGA and ambulated 100ft to his room CGA using a FWW. pt left seated in chair with tray table in front. pt is recommended to d/c home. Upon speaking with spouse they have a w/c for home, FWW and 4WW and increased A from DTRs.
--- NOTE | 2016-11-24 11:24 | NUR ---
PATIENT AND INDICATED UNDERSTANDING OF DISCHARGE INSTRUCTIONS AND FOLLOW UP CARE. REMOVED IV AND PATIENT TOLERATED WELL. PATIENT AND CURRENTLY WAITING FOR THEIR RIDE TO ARRIVE.
--- NOTE | 2016-11-24 12:45 | NUR ---
Patient left the hospital in his own wheelchair with his , accompanied by a facility tech. Patient's daughter and son-in-law were to drive him home in their personal car.
--- NOTE | 2016-11-24 16:06 | Discharge Summary ---
Discharge Summary Report Admit Date 11/20/16 Discharge Date 11/24/16 Admission Diagnosis 1. Pneumonia 2. Sepsis 3. Diabetes mellitus 4. Atrial fibrillation 5. Chronic anticoagulation 6. Dementia-mild Discharge Diagnosis 1. Pneumonia 2. Sepsis 3. Diabetes mellitus 4. Atrial fibrillation 5. Chronic anticoagulation 6. Dementia-mild Brief History Please see admission history and physical examination Hospital Course The following problems and their management were noted during the patient's hospitalization: 1. Pneumonia Patient admitted with findings of pneumonia. The patient responded well to antimicrobial therapy. He was afebrile at the time of discharge. WBC improving. Required no supplemental oxygen. We'll continue with Ceftin 500 mg by mouth twice a day at the time of discharge. Complete full course of therapy. Outpatient follow-up with PCP next week 2. Sepsis Patient presented with findings suggestive of sepsis. Elevated lactic acid level. Symptoms resolved rapidly. No signs of sepsis at time of discharge. 3. Diabetes mellitus Patient with long-standing history of diabetes mellitus. Blood sugar well controlled on discharge. Fasting blood sugar on day of discharge 107 mg/dL. Continue outpatient medical regimen. See discharge instructions. Consistent carbohydrate diet. Outpatient follow-up with PCP next week. 4. Atrial fibrillation Stable. Heart rate control. Continue anticoagulation. See discharge instructions. 5. Chronic anticoagulation Stable. INR 3.1 on discharge. Continue Coumadin 5 mg by mouth daily. Follow- up PCP next week for repeat INR 6. Dementia-mild Patient was history of agitation mild dementia. Required atypical antipsychotics for agitated behavior. Symptoms much improved on discharge. Patient discharged on Zyprexa 10 mg by mouth daily at bedtime. Outpatient follow up with PCP next week for weaning of the Zyprexa as appropriate when patient is in familiar environment. 7. Urinary retention Mild. Outpatient follow-up with PCP Flomax 0.4 mg by mouth daily Discharge Instructions/Meds For other recommendations regarding discharge diet, activity, followup, and discharge medications please see the patient's discharge instructions. Discharge condition: Fair, improved Greater than 30 min. was spent in the patient's discharge preparation including discharge interview and physical examination, progress note, discharge instructions, and discharge summary The patient was interviewed and examined on the day of discharge. E&M Codes Discharge: Inpt >30 min spent/[id number]
== END 2016-11-24 12:40 | disposition home or self-care (01) | DRG 871 ==
LOC: ED SRH 22:55 → TRANS SRH 11-20 00:43 → CC SRH 11-20 01:30 → TRANS SRH 11-20 01:30 → CC SRH 11-20 09:22
PROVIDERS: ADMIT Student in an Organized Health Care Education/Training Program
DX: A41.9 Sepsis, unspecified organism (principal); J18.9 Pneumonia, unspecified organism; J44.0 Chronic obstructive pulmonary disease with (acute) lower respiratory infection; J44.1 Chronic obstructive pulmonary disease with (acute) exacerbation; F03.91 Unspecified dementia, unspecified severity, with behavioral disturbance; F05 Delirium due to known physiological condition; R09.02 Hypoxemia; E11.40 Type 2 diabetes mellitus with diabetic neuropathy, unspecified; I12.9 Hypertensive chronic kidney disease with stage 1 through stage 4 chronic kidney disease, or unspecified chronic kidney disease; E11.22 Type 2 diabetes mellitus with diabetic chronic kidney disease; N18.2 Chronic kidney disease, stage 2 (mild); Z79.84 Long term (current) use of oral hypoglycemic drugs; T43.595A Adverse effect of other antipsychotics and neuroleptics, initial encounter; R33.9 Retention of urine, unspecified; I25.10 Atherosclerotic heart disease of native coronary artery without angina pectoris; Z85.118 Personal history of other malignant neoplasm of bronchus and lung; Z95.1 Presence of aortocoronary bypass graft
CPT/HCPCS: 81240; 83475; 83738; 83805; 85241; 90004; 90047; 90065; 90074; 90098; 90100; 90934; 91286; 91320; 91400; 91576; 92031; 92720; 93004; 94060; 95059

== ENCOUNTER 2016-12-08 20:06 | Inpatient (IN) | payer OTHER ==
[~2016-12-08] VITALS: Ht 160 cm; Wt 95.1 kg
[~2016-12-08 20:06] MED LIST: ATENOLOL25 MG PO; CEFTIN500 MG PO; COUMADIN2.5 MG PO; FLONASE AL50 MCG/ACT; FLOVENT HFA220 MCG INH; GLIMEPIRIDE1 MG PO; GLUCOPHAGE500 MG PO; LOVASTATIN40 MG PO; MAG-OX 400400 MG PO; OLANZAPINE ODT5 MG PO; PROAIR HFA IN; ZESTRIL10 MG PO
--- NOTE | 2016-12-08 20:50 | DIAGNOSTIC IMAGING REPORT ---
PROCEDURE: XR CHEST 1 VIEW INDICATION: Shortness of breath. History of lung cancer and recent pneumonia. TECHNIQUE: Portable AP view (2040 hours). COMPARISON: Compared to chest x-rays on 11/20/2016 and 11/19/2016. FINDINGS: Mild to moderate improvement with sub total resolution of bibasilar atelectasis/or pneumonia, with mild residual change at the left lung base. Status post median sternotomy and CABG. Heart and mediastinum are normal size. Thorax is normal. IMPRESSION: 1. Mild to moderate improvement with resolving bibasilar pneumonia (mild residual at the left lung base). 2. Status post coronary artery bypass graft.
--- NOTE | 2016-12-08 22:20 | ED CLINICAL REPORT ---
Clinical Report - Physicians/Mid Levels [facility] [address] [place] [address] 12/08/2016 20:06 Patient: FLORESITA WANG Time Seen: 20:25; initial patient contact. Arrived- By private vehicle. Historian- patient. HISTORY OF PRESENT ILLNESS Chief Complaint: DYSPNEA. This started today and is still present. It was gradual in onset and has been constant. The dyspnea is described as moderate and is worsened by walking and exertion and is improved by rest. No cough, sputum production, fever, sweating episodes or wheezing. No chills, chest pain or discomfort, calf pain or foot swelling. No anxiety or palpitations. He has had dyspnea on exertion. Similar symptoms previously: None. Recent medical care: Not recently seen/assessed. REVIEW OF SYSTEMS No nausea, vomiting, headache, difficulty with urination or excessive urination. No skin rash. All systems otherwise negative, except as recorded above. PAST HISTORY Atrial Fibrillation. Aphthous stomatitis. Tubular adenoma. Lumbar Radiculopathy. Hyperlipidemia. Angina. Erectile Dysfunction. Hip pain. Osteoarthritis of Knee. Lung Cancer. Hypertension. Back Pain. Neuropathy. Dementia. Diabetes Mellitus. ADDITIONAL SURGERIES: Back Surgery. Cancer removal. Knee Surgery. Lung Surgery. Cardiac Surgery. Left lobectomy. Medications: TraZODone HCl Oral (Tablet 50 mg) 2 tablets, at bedtime. Acetaminophen Oral. Albuterol Sulfate Inhalation. Atenolol Oral 25 mg. Fluticasone Propionate HFA Inhalation. Glimepiride Oral (Tablet 4 mg) 1 tablet, BID. Lisinopril Oral 20 mg, daily. Lovastatin Oral (Tablet 40 mg), at bedtime. Magnesium Oral. MetFORMIN HCl Oral (Tablet 1000 mg). Multivitamin Oral. Warfarin Sodium Oral. Allergies: No Known Drug Allergy. SOCIAL HISTORY Former smoker. ADDITIONAL NOTES The nursing notes have been reviewed. PHYSICAL EXAM Vital Signs: 12/08/2016 20:18 BP: 108/63. HR: 43. RR: 16. O2 saturation: 96%. Temp: 98.4 F. Pain level now: 0/10. Have been reviewed. Hypotensive. Bradycardic. Respiratory rate normal. Temperature normal. Oxygen saturation normal. Appearance: Alert. No acute distress. Eyes: Eyes normal inspection. ENT: Pharynx normal. Neck: No jugular venous distention. CVS: Bradycardia. 2/6 holosystolic systolic murmur. Respiratory: No respiratory distress. Breath sounds normal. Abdomen: Soft and nontender. No organomegaly. Skin: Skin warm and dry. Normal skin color. Extremities: No calf tenderness. No lower extremity edema. LABS, X-RAYS, AND EKG EKG: EKG time: (2034). Atrial fibrillation (wide-complex) (ventricular rate 48). Wide QRS- intraventricular conduction delay. RBBB. Normal QTc. Non-specific T wave inversion in lead V1, V3, V4, V5 and V6. Prior EKG unavailable. The study has been interpreted contemporaneously by me. The study has been independently viewed by me. The EKG appears to be a good tracing. Interpretation time: 2034. Chest X-ray: (1. Mild to moderate improvement with resolving bibasilar pneumonia (mild residual at the left lung base).). Laboratory Tests: UA-Culture if indicated: (SUPA: 12/08/2016 21:36) ( MsgRcvd 12/08/2016 21:53) Final results Test Result Flag Units (Reference) URINE COLOR YELLOW URINE APPEARANCE CLEAR URINE GLUCOSE NEGATIVE (NEGATIVE) URINE BILIRUBIN NEGATIVE (NEGATIVE) URINE KETONE TRACE (NEGATIVE) URINE SPECIFIC GRAVITY >= 1.030 (1.010-1.030) URINE PH 6.0 (5.0-8.0) URINE PROTEIN 2+ (NEGATIVE) URINE UROBILINOGEN 0.2 EU/dL (0.2-1.0) URINE NITRITE NEGATIVE (NEGATIVE) URINE BLOOD NEGATIVE (NEGATIVE) URINE LEUK ESTERASE NEGATIVE (NEGATIVE) URINE RBC NONE SEEN rbc/hpf (0-1) URINE WBC 0-1 wbc/hpf (0-1) URINE EPITHELIAL CELLS RARE EPI/hpf (0-5) URINE BACTERIA NONE SEEN (NONE SEEN) URINE COMMENT CULT NOT INDICATED 2+ AMORPHOUS1+ MUCUS3-5 Hyaline Casts/l.p.f.URINE CULTURES ARE SET-UP BASED ON THE FOLLOWING CRITERIA:POSITIVE NITRITEPOSITIVE LEUKOCYTE ESTERASEGREATER THAN 10 WHITE BLOOD CELLSMODERATE (2+) OR GREATER BACTERIA CBC w Diff: (SUPA: 12/08/2016 20:35) ( [facility] 12/08/2016 20:51) Final results Test Result Flag Units (Reference) WHITE BLOOD COUNT 5.8 K/uL (4.5-11.5) RED BLOOD COUNT 3.22 L M/uL (4.50-5.90) HEMOGLOBIN 10.0 L gm/dL (13.5-17.5) HEMATOCRIT 30.5 L % (41.0-53.0) MEAN CELL VOLUME 95 fL (80-100) MEAN CORPUSCULAR HGB 31 pg (26-34) MEAN CORPUSCULAR HGB CONC 33 g/dL (31-37) RED CELL DISTRIBUTION WIDTH 15.7 H % (11.6-14.8) PLATELET COUNT 203 K/uL (150-400) NEUTROPHIL % 61.6 % (50-75) LYMPH % 24.5 L % (25-40) MONO % 11.7 % (3-14) EOSINOPHIL % 1.1 % (0-4) BASOPHIL % 1.1 % (0-2) PT with INR: (SUPA: 12/08/2016 20:35) ( [facility] 12/08/2016 21:21) Final results Test Result Flag Units (Reference) INR 2.9 H (0.8-1.2) Low Intensity Therapy: INR 1.5-2.0 PT range 18.5-23.1Mod.Intensity Therapy: INR 2.0-3.0 PT range 23.1-31.5High Intensity Therapy: INR 2.5-3.5 PT range 27.4-35.5High Intensity Therapy 2: INR 3.0-4.0 PT range 31.5-39.3 APTT 43 H SECONDS (24-34) [id number]: (SUPA: 12/08/2016 20:35) ( [facility] 12/08/2016 21:08) Final results Test Result Flag Units (Reference) D-DIMER QUANTITATIVE 0.79 H ug/mLFEU (0.27-0.52) The primary value of this quantitative assay relates toits negative predictive value (i.e. exclusion) of pulmonaryembolism/deep vein thrombosis/DIC.Elevated levels of d-dimer may also occur with:, age, cancer, inflammation, liver disease,post-op, infection, hematoma, coronary disease, peripheralarteriopathy, bleeding disorders and thrombolytic treatment.Results should be correlated with other clinical andradiological data.Testing Methodology: Latex Immunoassay BNP: (SUPA: 12/08/2016 20:35) ( [facility] 12/08/2016 21:12) Final results Test Result Flag Units (Reference) B-TYPE NATRIURETIC PEPTIDE 354 H pg/ml (5-100) CHEM 13 PANEL: (SUPA: 12/08/2016 20:35) ( [facility] 12/08/2016 21:07) Final results Test Result Flag Units (Reference) GLUCOSE 171 H mg/dL (70-110) BUN 28 H mg/dL (7-18) CREATININE 1.6 H mg/dL (0.6-1.3) Estimated GFR 44.09 mL/min Estimated GFR- 53.44 mL/min Note: Persistent reduction over 3 months in eGFR<60 mL/min/1.73 m2 defines CKD. Patients with eGFR values>=60 mL/min/1.73 m2 may also have CKD if evidence ofpersistent proteinuria. Additional information may be foundat www.kidney.org. SODIUM 142 mmol/L (136-145) POTASSIUM 4.7 mmol/L (3.5-5.1) CHLORIDE 106 mmol/L (98-107) CARBON DIOXIDE 28 mmol/L (21-32) CALCIUM 9.3 mg/dL (8.5-10.1) TOTAL PROTEIN 7.2 g/dL (6.4-8.2) ALBUMIN 3.2 L g/dL (3.3-5.0) BILIRUBIN, TOTAL 0.4 mg/dL (0.0-1.0) ALKALINE PHOSPHATASE 56 U/L (46-116) AST (SGOT) 22 U/L (15-37) ALT (SGPT) 33 U/L (12-78) CPK 71 U/L (24-260) MAGNESIUM 1.8 mg/dL (1.8-2.4) TROPONIN I <0.05 L ng/mL (0.00-1.5) TROPONIN REFERENCE RANGE:<0.1 NEGATIVE0.1-1.5 INDETERMINANT>1.5 POSITIVE . PROGRESS AND PROCEDURES Critical care performed (80 minutes). Time is exclusive of separately billable procedures. Time includes: direct patient care, patient reassessment, coordination of patient care, interpretation of data (laboratory data, pulse oximetry, chest xrays, prior electrocardiograms and cardiac output measurements), review of patient's medical records, medical consultation, family consultation regarding treatment decisions and documentation of patient care. The patient required critical care due to the acute impairment of vital organ systems (cardiovascular) and a high probability of life threatening deterioration. Multiple urgent interventions were required to prevent sudden life threatening deterioration. Discussed case with hospitalist, (call returned 22:19 Dr. Hernandez, admit to CCU). Reviewed test results and need for additional work-up. Disposition: Admitted to the Critical Care Unit. Condition: good. CLINICAL IMPRESSION Bacterial pneumonia. Empiric antibiotics given in the ED. (A fib with profound bradycardia). INSTRUCTIONS Follow-up: Blood pressure screening was not performed during this visit because the patient has an active diagnosis of hypertension. (Electronically signed by Rafi Ayoub Dr. 12/11/2016 8:41)
--- NOTE | 2016-12-08 22:20 | ED CLINICAL REPORT ---
Clinical Report - Physicians/Mid Levels [facility] [address] [place] [address] 12/08/2016 20:06 Patient: FLORESITA WANG Time Seen: 20:25; initial patient contact. Arrived- By private vehicle. Historian- patient. HISTORY OF PRESENT ILLNESS Chief Complaint: DYSPNEA. This started today and is still present. It was gradual in onset and has been constant. The dyspnea is described as moderate and is worsened by walking and exertion and is improved by rest. No cough, sputum production, fever, sweating episodes or wheezing. No chills, chest pain or discomfort, calf pain or foot swelling. No anxiety or palpitations. He has had dyspnea on exertion. Similar symptoms previously: None. Recent medical care: Not recently seen/assessed. REVIEW OF SYSTEMS No nausea, vomiting, headache, difficulty with urination or excessive urination. No skin rash. All systems otherwise negative, except as recorded above. PAST HISTORY Atrial Fibrillation. Aphthous stomatitis. Tubular adenoma. Lumbar Radiculopathy. Hyperlipidemia. Angina. Erectile Dysfunction. Hip pain. Osteoarthritis of Knee. Lung Cancer. Hypertension. Back Pain. Neuropathy. Dementia. Diabetes Mellitus. ADDITIONAL SURGERIES: Back Surgery. Cancer removal. Knee Surgery. Lung Surgery. Cardiac Surgery. Left lobectomy. Medications: TraZODone HCl Oral (Tablet 50 mg) 2 tablets, at bedtime. Acetaminophen Oral. Albuterol Sulfate Inhalation. Atenolol Oral 25 mg. Fluticasone Propionate HFA Inhalation. Glimepiride Oral (Tablet 4 mg) 1 tablet, BID. Lisinopril Oral 20 mg, daily. Lovastatin Oral (Tablet 40 mg), at bedtime. Magnesium Oral. MetFORMIN HCl Oral (Tablet 1000 mg). Multivitamin Oral. Warfarin Sodium Oral. Allergies: No Known Drug Allergy. SOCIAL HISTORY Former smoker. ADDITIONAL NOTES The nursing notes have been reviewed. PHYSICAL EXAM Vital Signs: 12/08/2016 20:18 BP: 108/63. HR: 43. RR: 16. O2 saturation: 96%. Temp: 98.4 F. Pain level now: 0/10. Have been reviewed. Hypotensive. Bradycardic. Respiratory rate normal. Temperature normal. Oxygen saturation normal. Appearance: Alert. No acute distress. Eyes: Eyes normal inspection. ENT: Pharynx normal. Neck: No jugular venous distention. CVS: Bradycardia. 2/6 holosystolic systolic murmur. Respiratory: No respiratory distress. Breath sounds normal. Abdomen: Soft and nontender. No organomegaly. Skin: Skin warm and dry. Normal skin color. Extremities: No calf tenderness. No lower extremity edema. LABS, X-RAYS, AND EKG EKG: EKG time: (2034). Atrial fibrillation (wide-complex) (ventricular rate 48). Wide QRS- intraventricular conduction delay. RBBB. Normal QTc. Non-specific T wave inversion in lead V1, V3, V4, V5 and V6. Prior EKG unavailable. The study has been interpreted contemporaneously by me. The study has been independently viewed by me. The EKG appears to be a good tracing. Interpretation time: 2034. Chest X-ray: (1. Mild to moderate improvement with resolving bibasilar pneumonia (mild residual at the left lung base).). Laboratory Tests: UA-Culture if indicated: (SUPA: 12/08/2016 21:36) ( MsgRcvd 12/08/2016 21:53) Final results Test Result Flag Units (Reference) URINE COLOR YELLOW URINE APPEARANCE CLEAR URINE GLUCOSE NEGATIVE (NEGATIVE) URINE BILIRUBIN NEGATIVE (NEGATIVE) URINE KETONE TRACE (NEGATIVE) URINE SPECIFIC GRAVITY >= 1.030 (1.010-1.030) URINE PH 6.0 (5.0-8.0) URINE PROTEIN 2+ (NEGATIVE) URINE UROBILINOGEN 0.2 EU/dL (0.2-1.0) URINE NITRITE NEGATIVE (NEGATIVE) URINE BLOOD NEGATIVE (NEGATIVE) URINE LEUK ESTERASE NEGATIVE (NEGATIVE) URINE RBC NONE SEEN rbc/hpf (0-1) URINE WBC 0-1 wbc/hpf (0-1) URINE EPITHELIAL CELLS RARE EPI/hpf (0-5) URINE BACTERIA NONE SEEN (NONE SEEN) URINE COMMENT CULT NOT INDICATED 2+ AMORPHOUS1+ MUCUS3-5 Hyaline Casts/l.p.f.URINE CULTURES ARE SET-UP BASED ON THE FOLLOWING CRITERIA:POSITIVE NITRITEPOSITIVE LEUKOCYTE ESTERASEGREATER THAN 10 WHITE BLOOD CELLSMODERATE (2+) OR GREATER BACTERIA CBC w Diff: (SUPA: 12/08/2016 20:35) ( [facility] 12/08/2016 20:51) Final results Test Result Flag Units (Reference) WHITE BLOOD COUNT 5.8 K/uL (4.5-11.5) RED BLOOD COUNT 3.22 L M/uL (4.50-5.90) HEMOGLOBIN 10.0 L gm/dL (13.5-17.5) HEMATOCRIT 30.5 L % (41.0-53.0) MEAN CELL VOLUME 95 fL (80-100) MEAN CORPUSCULAR HGB 31 pg (26-34) MEAN CORPUSCULAR HGB CONC 33 g/dL (31-37) RED CELL DISTRIBUTION WIDTH 15.7 H % (11.6-14.8) PLATELET COUNT 203 K/uL (150-400) NEUTROPHIL % 61.6 % (50-75) LYMPH % 24.5 L % (25-40) MONO % 11.7 % (3-14) EOSINOPHIL % 1.1 % (0-4) BASOPHIL % 1.1 % (0-2) PT with INR: (SUPA: 12/08/2016 20:35) ( [facility] 12/08/2016 21:21) Final results Test Result Flag Units (Reference) INR 2.9 H (0.8-1.2) Low Intensity Therapy: INR 1.5-2.0 PT range 18.5-23.1Mod.Intensity Therapy: INR 2.0-3.0 PT range 23.1-31.5High Intensity Therapy: INR 2.5-3.5 PT range 27.4-35.5High Intensity Therapy 2: INR 3.0-4.0 PT range 31.5-39.3 APTT 43 H SECONDS (24-34) [id number]: (SUPA: 12/08/2016 20:35) ( [facility] 12/08/2016 21:08) Final results Test Result Flag Units (Reference) D-DIMER QUANTITATIVE 0.79 H ug/mLFEU (0.27-0.52) The primary value of this quantitative assay relates toits negative predictive value (i.e. exclusion) of pulmonaryembolism/deep vein thrombosis/DIC.Elevated levels of d-dimer may also occur with:, age, cancer, inflammation, liver disease,post-op, infection, hematoma, coronary disease, peripheralarteriopathy, bleeding disorders and thrombolytic treatment.Results should be correlated with other clinical andradiological data.Testing Methodology: Latex Immunoassay BNP: (SUPA: 12/08/2016 20:35) ( [facility] Final results Test Result Flag Units (Reference) B-TYPE NATRIURETIC PEPTIDE 354 H pg/ml (5-100) CHEM 13 PANEL: (SUPA: 12/08/2016 20:35) ( [facility]07) Final results Test Result Flag Units (Reference) GLUCOSE 171 H mg/dL (70-110) BUN 28 H mg/dL (7-18) CREATININE 1.6 H mg/dL (0.6-1.3) Estimated GFR 44.09 mL/min Estimated GFR- 53.44 mL/min Note: Persistent reduction over 3 months in eGFR<60 mL/min/1.73 m2 defines CKD. Patients with eGFR values>=60 mL/min/1.73 m2 may also have CKD if evidence ofpersistent proteinuria. Additional information may be foundat www.kidney.org. SODIUM 142 mmol/L (136-145) POTASSIUM 4.7 mmol/L (3.5-5.1) CHLORIDE 106 mmol/L (98-107) CARBON DIOXIDE 28 mmol/L (21-32) CALCIUM 9.3 mg/dL (8.5-10.1) TOTAL PROTEIN 7.2 g/dL (6.4-8.2) ALBUMIN 3.2 L g/dL (3.3-5.0) BILIRUBIN, TOTAL 0.4 mg/dL (0.0-1.0) ALKALINE PHOSPHATASE 56 U/L (46-116) AST (SGOT) 22 U/L (15-37) ALT (SGPT) 33 U/L (12-78) CPK 71 U/L (24-260) MAGNESIUM 1.8 mg/dL (1.8-2.4) TROPONIN I <0.05 L ng/mL (0.00-1.5) TROPONIN REFERENCE RANGE:<0.1 NEGATIVE0.1-1.5 INDETERMINANT>1.5 POSITIVE . PROGRESS AND PROCEDURES Critical care performed (80 minutes). Time is exclusive of separately billable procedures. Time includes: direct patient care, patient reassessment, coordination of patient care, interpretation of data (laboratory data, pulse oximetry, chest xrays, prior electrocardiograms and cardiac output measurements), review of patient's medical records, medical consultation, family consultation regarding treatment decisions and documentation of patient care. The patient required critical care due to the acute impairment of vital organ systems (cardiovascular) and a high probability of life threatening deterioration. Multiple urgent interventions were required to prevent sudden life threatening deterioration. Discussed case with hospitalist, (call returned 22:19 Dr. Hernandez, admit to CCU). Reviewed test results and need for additional work-up. Disposition: Admitted to the Critical Care Unit. Condition: good. CLINICAL IMPRESSION Bacterial pneumonia. Empiric antibiotics given in the ED. (A fib with profound bradycardia). INSTRUCTIONS Follow-up: Blood pressure screening was not performed during this visit because the patient has an active diagnosis of hypertension. (Electronically signed by Rafi Ayoub Dr. 12/11/2016 8:41)
--- NOTE | 2016-12-08 22:20 | ED NURSING NOTES ---
Clinical Report - Nurses [facility] [address] [place] [address] 12/08/2016 20:06 Patient: FLORESITA WANG TRIAGE Triage time 20:19. Acuity: LEVEL 3. Chief Complaint: SHORTNESS OF BREATH. --20:29 Loraine Pizano R.N. 20:18 12/08/16. BP: 108/63. HR: 43. RR: 16 (regular and unlabored). O2 saturation: 96% on room air. Temp: 98.4 F (oral). Pain level now: 0/10. --20:29 Loraine Pizano R.N. Weight: 90.7 kg stated. Height/Length: 63 inches. BMI: 35.4. --20:21 Loraine Pizano R.N. Medications Acetaminophen Oral. Albuterol Sulfate Inhalation. Atenolol Oral 25 mg. Fluticasone Propionate HFA Inhalation. Glimepiride Oral (Tablet 4 mg) 1 tablet, BID. Lisinopril Oral 20 mg, daily. Lovastatin Oral (Tablet 40 mg), at bedtime. Magnesium Oral. MetFORMIN HCl Oral (Tablet 1000 mg). Multivitamin Oral. Warfarin Sodium Oral. --20:24 Loraine Pizano R.N. TraZODone HCl Oral (Tablet 50 mg) 2 tablets, at bedtime. --20:25 Loraine Pizano R.N. Allergies No Known Drug Allergy. --20:24 Loraine Pizano R.N. History Arrived by private vehicle. Historian: patient. Accompanied by family. Primary physician (kt). This started yesterday. ( SOB and weak since yesterday, states released from hospital 2 weeks ago for PNE.). --20:29 Loraine Pizano R.N. PAST MEDICAL HX: Chronic obstructive pulmonary disease. Immunizations: up-to-date. SOCIAL HX: Former smoker. No infectious disease exposure. ABUSE ASSESSMENT: No report of abuse. SELF HARM ASSESSMENT: A self harm assessment was performed. The patient answered "no" to the question "Have you recently felt down, depressed, or hopeless?", "Have you noticed less interest or pleasure in doing things?", "Do you have thoughts of harming or killing yourself?", "Are you here because you tried to hurt yourself?", "Have you ever tried to hurt yourself before today?", "Have you recently had thoughts about harming or killing others?" and "Do you have any dangerous items in your possession?". FALL RISK ASSESSMENT: Fall risk assessment completed. No fall risk identified. NUTRITIONAL RISK ASSESSMENT: The nutritional risk assessment revealed no deficiencies. FUNCTIONAL ASSESSMENT: Functional assessment: no impairments noted. LEARNING NEEDS ASSESSMENT: The learning needs assessment revealed no barriers. SKIN INTEGRITY ASSESSMENT: Skin integrity risk assessment completed. No skin integrity risk identified. --20:33 Loraine Pizano R.N. PROBLEMS: Atrial Fibrillation. Aphthous stomatitis. Tubular adenoma. Lumbar Radiculopathy. Hyperlipidemia. Angina. Erectile Dysfunction. Hip pain. Osteoarthritis of Knee. Lung Cancer. Hypertension. Back Pain. Neuropathy. Dementia. Diabetes Mellitus. --20:28 Loraine Pizano R.N. ADDITIONAL SURGERIES: Back Surgery. Cancer removal. Knee Surgery. Lung Surgery. --20:28 Loraine Pizano R.N. Cardiac Surgery. Left lobectomy. --20:56 Loraine Pizano R.N. The following entry was struck by Loraine Pizano R.N., 20:56 <<STRICKEN ENTRY-- Cardiac Surgery. --23:28 Loraine Pziano R.N. --END STRIKE>>. Interventions ID band on patient. --20:29 Loraine Pizano R.N. PHYSICAL ASSESSMENT To room via wheelchair. GENERAL / NEURO / PSYCH: Appears in distress. The patient is disoriented to person and time. He has had constant, generalized weakness. HEENT: Mucous membranes are pink. RESPIRATORY: Mild respiratory distress. The patient can speak in full sentences. Prolonged expirations. Decreased breath sounds in the bases bilaterally. CVS: Cardiac rhythm: sinus bradycardia; (42). GI / : Abdomen soft and nontender. Bowel sounds within normal limits. SKIN: Skin is warm and dry. Normal skin turgor. --20:36 Loraine Pizano R.N. NURSING PROGRESS NOTES Oxygen administered by venturi mask at 9 liters. gambling monitor, pulse oximeter and NIBP monitor placed on patient; classroom monitor- Lead II; monitor alarms on. Patient gowned. ( pt moved to room 1 during triage noticed pt HR in the 30's, MD in room). Two patient identifiers checked. Call light placed in reach. Side rails up x 2. Bed placed in lowest position. Brakes of bed on. Patient ready for evaluation- chart flagged and ED physician notified. --20:38 Loraine Pizano R.N. Portable chest x-ray performed. --20:38 Loraine Pizano R.N. Cardiac rhythm: sinus bradycardia; atrial fibrillation; (49). --20:40 Loraine Pizano R.N. 20:39 12/08/16. BP: 126/75. HR: 58 (regular and bradycardic). RR: 16 (regular and unlabored). O2 saturation: 100% on Venti mask. Temp: deferred. Pain level now: 0/10. --20:40 Loraine Pizano R.N. 20:35 12/08/2016 Site #1 started via IV in the right forearm with an 18g angiocath, with aseptic technique and good blood return; one attempt. Blood drawn: rainbow set. Labeled in the presence of the patient and sent to the lab. Saline lock flushed with 10 mL saline. --20:41 Loraine Pizano R.N. 20:40 12/08/2016 Atropine IVP 0.5 mg given over 1 second(s) via site #1. Allergies verified and confirmed 5 rights. IV patency established. IV site checked: no pain, redness, or swelling. IV flushed thoroughly pre- and post-medication administration. IVP given by RN ( notified of dose change). --20:47 Loraine Pizano R.N. 20:42 12/08/2016 Site #2 started via IV in the left forearm with an 20g angiocath, with aseptic technique and good blood return; one attempt. Saline lock flushed with 10 mL saline. --20:42 Loraine Pizano R.N. Overall patient status is improved- he states feels better. RESPIRATORY: No respiratory distress. Breath sounds normal. SKIN: Skin is warm and dry. Skin color within normal limits. --20:54 Loraine Pizano R.N. 20:48 12/08/16. BP: 128/73. HR: 73. RR: 20. O2 saturation: 100%. Temp: deferred. Pain level now: 0/10. --20:54 Loraine Pizano R.N. 21:03 12/08/16. BP: 122/40. HR: 58. RR: 18. O2 saturation: 100% on Venti mask. Temp: deferred. Pain level now: 0/10. --21:05 Loraine Pizano R.N. Overall patient status is improved- he states feels better. ( pt resting visiting with , VS improving will continue to monitor). GENERAL / NEURO / PSYCH: The patient reports fatigue that is mild in severity. RESPIRATORY: Breath sounds normal. SKIN: Skin is warm and dry. Skin color within normal limits. --21:05 Loraine Pizano R.N. Cardiac rhythm: atrial fibrillation. Overall patient status is the same- he states feels the same. ( Family at bedside, pt resting denies needs at this time. will continue to monitor). GENERAL / NEURO / PSYCH: The patient reports fatigue is still present and currently mild in severity. CVS: Cardiac rhythm: atrial fibrillation. --21:27 Loraine Pizano R.N. 21:15 12/08/16. BP: 119/57. HR: 65. RR: 16. O2 saturation: 100% on Venti mask. Temp: deferred. Pain level now: 0/10. --21:27 Loraine Pizano R.N. 20:35. EKG was performed by a tech. --21:37 McQuoid, Rickey, ER Tech1 Patient ID band checked for patient name and birthdate: family confirmed. Instructions provided to collect clean catch urine and patient verbalized understanding. Catheterized urine collected with return of rickey-colored clear urine; sample sent to lab for urinalysis and culture. Specimen labeled in the presence of the patient. ( family at bedside, pt resting, VSS, will continue to monitor). --21:44 Loraine Pizano R.N. Two patient identifiers checked. Call light placed in reach. Side rails up x 2. Bed placed in lowest position. Brakes of bed on. --21:44 Loraine Pizano R.N. 22:00 12/08/2016 Started 5 mcg of Dopamine Drip IV in bag #1 250 mL; at 5 mcg/kg/min over 14.41 hour(s) via site #1 via IV pump. Allergies verified and confirmed 5 rights. IV patency established. IV site checked: no pain, redness, or swelling. IV flushed thoroughly pre- and post-medication administration. --22:02 Loraine Pizano R.N. 21:45 12/08/16. BP: 118/53. HR: 42. RR: 18. O2 saturation: 99%. Temp: deferred. Pain level now: 08/04. --22:04 Loraine Pizano R.N. ( Pt HR dropped to low 40's MD notified and orders received.). Two patient identifiers checked. Call light placed in reach. Side rails up x 1. Bed placed in lowest position. Brakes of bed on. --22:04 Loraine Pizano R.N. 22:00 12/08/16. BP: 133/57 taken while lying. HR: 60 (irregular). RR: 18. O2 saturation: 99% on Venti mask. Temp: deferred. Pain level now: 08/04. --22:05 Loraine Pizano R.N. Patient ID band checked for patient name and birthdate: patient confirmed. Blood samples drawn by lab per protocol ; labeled in presence of the patient and sent to lab: jacques top; blood culture. ( Lab in to draw). --22:18 Loraine Pizano R.N. 22:31 12/08/16. BP: 142/62. HR: 66 (irregular and normal rate). RR: 18 (regular and unlabored). O2 saturation: 98% on Venti mask. Temp: deferred. Pain level now: 07/04. --22:34 Loraine Pizano R.N. Overall patient status is improved- he states feels better. ( Family at bedside, no distress at this time, will continue to monitor.). --22:34 Loraine Pizano R.N. 23:01 12/08/16. BP: 143/70 taken on the left arm, while lying. HR: 68 (irregular and strong). RR: 20 (regular and unlabored). O2 saturation: 97% on Venti mask at 9 liters/minute. Temp: deferred. Pain level now: 0/10. --23:03 Loraine Pizano R.N. Cardiac rhythm: atrial fibrillation. Reassurance given to the patient and patient's family. Overall patient status is improved- he states feels better. ( resting quietly, no distress at this time, will continue to monitor.). Two patient identifiers checked. Call light placed in reach. Side rails up x 1. Bed placed in lowest position. Brakes of bed on. --23:03 Loraine Pizano R.N. 23:14 12/08/2016 Started 500 mg of Azithromycin IVPB in bag #1 250 mL; over 1 hour(s) via site #2 via IV pump. Allergies verified and confirmed 5 rights. IV patency established. IV site checked: no pain, redness, or swelling. IV flushed thoroughly pre- and post-medication administration. --23:14 Loraine Pizano R.N. The patient is calm. Overall patient status is improved. --23:16 Loraine Pizano R.N. 23:15 12/08/16. BP: 143/70. HR: 80 (irregular and strong). RR: 20 (regular). O2 saturation: 96% on Venti mask at 9 liters/minute. Pain level now: 1/10. --23:16 Loraine Pizano R.N. 23:30 12/08/16. BP: 152/70. HR: 82 (irregular and strong). RR: 20. O2 saturation: 97% on Venti mask. Temp: 98.2 F (oral). Pain level now: 0/10. --23:41 Loraine Pizano R.N. Cardiac rhythm: atrial fibrillation. The patient is calm and sleeping. Overall patient status is improved- he states feels better. ( Spouse at bedside). RESPIRATORY: No respiratory distress. Breath sounds normal. SKIN: Skin is warm and dry. Skin color within normal limits. Two patient identifiers checked. Call light placed in reach. Side rails up x 2. Bed placed in lowest position. Brakes of bed on. --23:41 Loraine Pizano R.N. 00:20 12/09/2016 Azithromycin IVPB Discontinued: completed. Total amount infused: 250 mL. IV patency established. IV site checked: no pain, redness, or swelling. IV flushed thoroughly. --00:20 Loraine Pizano R.N. 00:21 12/09/2016 Started 750 mg of Levofloxacin IVPB in bag #1 150 mL; over 1.5 hour(s) via site #2 via IV pump. Allergies verified and confirmed 5 rights. IV patency established. IV site checked: no pain, redness, or swelling. IV flushed thoroughly pre- and post-medication administration. --00:21 Loraine Pizano R.N. 00:32 12/09/2016 IV Saline Lock Drip IV Continued: upon admission at the rate of 0 mcg/kg/min. 0 mL remaining bag #1. IV patency established. IV site checked: no pain, redness, or swelling. IV flushed thoroughly. --00:32 Loraine Pizano R.N. 00:33 12/09/2016 Dopamine Drip IV Continued: upon admission at the rate of 5 mcg/kg/min. 207 mL remaining bag #1. IV patency established. IV site checked: no pain, redness, or swelling. IV flushed thoroughly. --00:33 Loraine Pizano R.N. 00:34 12/09/2016 Site #[address] upon admission; patent, no pain and no signs of infection or infiltration. Good blood return present. --00:34 Loraine Pizano R.N. 00:34 12/09/2016 Site #[address] upon admission; patent, no pain and no signs of infection or infiltration. Good blood return present. --00:34 Loraine Pizano R.N. 00:34 12/09/2016 Levofloxacin IVPB Continued: upon admission at the rate of 100 mL/hr. 125 mL remaining bag #1. IV patency established. IV site checked: no pain, redness, or swelling. IV flushed thoroughly. --00:34 Loraine Pizano R.N. DISPOSITION / DISCHARGE Departure time: 39. Report was given to a nurse via a phone call. Report included patient's care, treatment, medications, reviewed medication reconcilliation, and condition (including any recent changes or anticipated changes). All questions were answered. Report was acknowledged and care was transferred. (0028 Cassandra RN). Bed obtained and ready (303). --01:03 Loraine Pizano R.N. 00:30 12/09/16. BP: 144/80. HR: 76. RR: 18. O2 saturation: 99% on Venti mask at 9 liters/minute. Temp: 98.5 F (oral). Pain level now: 08/04. --01:03 Loraine Pizano R.N. Locked/Released at 12/09/2016 1:04 by Loraine Pizano R.N.
--- NOTE | 2016-12-08 22:21 | ED ORDER SUMMARY ---
..... Patient: FLORESITA WANG OrderSheet [facility] VisitID: [id number] [place] [address] 81y, M Registration Date/Time: 12/08/2016 ORDER SHEET Weight: 90.7 kg (stated) Allergies: No Known Drug Allergy GENERAL ORDERS: Roof Bolter Operator (Continuous) (20:12/08/2016 Alex Pathak) (20:32 Michele) Chest 1V Urgent (20:31 12/08/2016 Alex Pathak) (Ack 20:36 Michele) (20:42 CBradburn R.N.) Cardiac Panel Stat (20:32 12/08/2016 Alex Pathak) (Ack 20:36 Michele) (20:42 CBradburn R.N.) BNP Urgent (20:32 12/08/2016 Alex Pathak) (Ack 20:36 Michele) (20:42 CBradburn R.N.) D-Dimer Urgent (20:32 12/08/2016 Alex Pathak) (Ack 20:36 Ena[place]) (20:42 CBradburn R.N.) UA-Culture if indicated Urgent (20:32 12/08/2016 Alex Pathak) (Ack 20:36 [place]) (21:43 CBradburn R.N.) EKG - ER Stat (20:32 12/08/2016 Alex Pathak) (20:37 AMcQuoid ER Tech1) PT with INR Urgent (20:34 12/08/2016 Alex Pathak) (Ack 20:38 Michele) (20:42 CBradburn R.N.) PTT Urgent (20:34 12/08/2016 Alex Pathak) (Ack 20:38 Michele) (20:42 CBradburn R.N.) Blood Culture (No) (N/A) Urgent (22:12/08/2016 Alex Pathak) (Ack 22:14 Michele) (22:22 CBradburn R.N.) Lactic Acid for Sepsis Protocol Urgent (22:12/08/2016 Alex Pathak) (Ack 22:14 Michele) (22:22 CBradburn R.N.) PCT (Procalcitonin) Urgent (22:06 12/08/2016 Alex Pathak) (Ack 22:14 Michele) (22:22 CBradburn R.N.) MEDICATION ORDERS: IV FLUIDS: Atropine IV 1 mg (HIGH ALERT MEDICATION, NOW) (20:32 12/08/2016 Alex Pathak) (20:47 Isela R.N.) IV Saline Lock (20:32 12/08/2016 Alex Pathak) (20:42 Isela R.N.) DOPamine Drip IV : 5 mcg/kg/min (HIGH ALERT MEDICATION, NOW) (21:54 12/08/2016 Alex Pathak) (Ack 21:59 CBradburn R.N.) (22:02 CBradburn R.N.) Azithromycin IV 500 mg/250 mL (NOW) (22:51 12/08/2016 Alex Pathak) (Ack 23:07 CBradburn R.N.) (23:14 DIANAradburn R.N.) Levofloxacin IV 750 mg/150 mL (NOW) (22:51 12/08/2016 Alex Pathak) (Ack 23:07 DIANAradburn R.N.) (0:21 CBradburn R.N.) ORDER SHEET NOTES: [Electronically signed by Loraine Pizano R.N. (01:04 12/09/2016)] [Electronically signed by Rafi Ayoub Dr. (08:41 12/11/2016)] [Electronically locked/signed by Loraine Pizano R.N. (01:04 12/09/2016)]
--- NOTE | 2016-12-08 22:21 | ED ORDER SUMMARY ---
..... Patient: FLORESITA WANG OrderSheet [facility] VisitID: [id number] [place] [address] 81y, M Registration Date/Time: 12/08/2016 ORDER SHEET Weight: 90.7 kg (stated) Allergies: No Known Drug Allergy GENERAL ORDERS: Communications Billing Analyst (Continuous) (20:12/08/2016 Alex Pathak) (20:32 Michele) Chest 1V Urgent (20:31 12/08/2016 Alex Pathak) (Ack 20:36 Michele) (20:42 CBradburn R.N.) Cardiac Panel Stat (20:32 12/08/2016 Alex Pathak) (Ack 20:36 Michele) (20:42 CBradburn R.N.) BNP Urgent (20:32 12/08/2016 Alex Pathak) (Ack 20:36 Michele) (20:42 CBradburn R.N.) D-Dimer Urgent (20:32 12/08/2016 Alex Pathak) (Ack 20:36 Ena[place]) (20:42 CBradburn R.N.) UA-Culture if indicated Urgent (20:32 12/08/2016 Alex Pathak) (Ack 20:36 [place]) (21:43 CBradburn R.N.) EKG - ER Stat (20:32 12/08/2016 Alex Pathak) (20:37 AMcQuoid ER Tech1) PT with INR Urgent (20:34 12/08/2016 Alex Pathak) (Ack 20:38 Michele) (20:42 CBradburn R.N.) PTT Urgent (20:34 12/08/2016 Alex Pathak) (Ack 20:38 Michele) (20:42 CBradburn R.N.) Blood Culture (No) (N/A) Urgent (22:12/08/2016 Alex Pathak) (Ack 22:14 Michele) (22:22 CBradburn R.N.) Lactic Acid for Sepsis Protocol Urgent (22:12/08/2016 Alex Pathak) (Ack 22:14 Michele) (22:22 CBradburn R.N.) PCT (Procalcitonin) Urgent (22:06 12/08/2016 Alex Pathak) (Ack 22:14 Michele) (22:22 CBradburn R.N.) MEDICATION ORDERS: IV FLUIDS: Atropine IV 1 mg (HIGH ALERT MEDICATION, NOW) (20:32 12/08/2016 Alex Pathak) (20:47 Isela R.N.) IV Saline Lock (20:32 12/08/2016 Alex Pathak) (20:42 Isela R.N.) DOPamine Drip IV : 5 mcg/kg/min (HIGH ALERT MEDICATION, NOW) (21:54 12/08/2016 Alex Pathak) (Ack 21:59 CBradburn R.N.) (22:02 CBradburn R.N.) Azithromycin IV 500 mg/250 mL (NOW) (22:51 12/08/2016 Alex Pathak) (Ack 23:07 CBradburn R.N.) (23:14 DIANAradburn R.N.) Levofloxacin IV 750 mg/150 mL (NOW) (22:51 12/08/2016 Alex Pathak) (Ack 23:07 DIANAradburn R.N.) (0:21 CBradburn R.N.) ORDER SHEET NOTES: [Electronically signed by Loraine Pizano R.N. (01:04 12/09/2016)] [Electronically signed by Rafi Ayoub Dr. (08:41 12/11/2016)] [Electronically locked/signed by Loraine Pizano R.N. (01:04 12/09/2016)]
[2016-12-09] VITALS (19 sets, daily range): BP systolic 95–149; BP diastolic 49–97
[2016-12-09] MEDS ORDERED: GLIMEPIRIDE4 MG PO (01:16)
[2016-12-09] MEDS ORDERED: [UNRECOGNIZED DRUG - OTHER] PO (01:28)
--- NOTE | 2016-12-09 01:30 | Progress Note ---
Subjective General Admission History and Physical Examination Patient Name: Shamir Caceres Admission Date: 12/09/16 Primary Care Provider: Dr. Moreno Attending Physician: Dr. Mitesh Blake M.D. Admitting Physician: Mitchel Hernandez MD Code Status: Full Code Room: SUBJECTIVE Historian: Mr. Diamond (minimal input) (Nisreen) Reliability: is reliable. Chief Complaint: Dyspnea Weakness Bradycardia History of Present Illness: The patient is a 81 WM with PMH of afib, cad (6 vsl bypass 1993), DM II, HTN, OA presenting to the [facility] ED with dyspnea, weakness. Patient apparently was all came to the mailbox when he felt weak and had difficulty maintaining an upright posture. His called medics who came found patient to be hypotensive with a bradycardia, tachypnea She was taken by ambulance [facility] ED. She was assessed with hypotension and bradycardia patient was given atropine and started on dopamine drip. Patient has improved. Patient however continues to remain restless. states that the restlessness is been ongoing even since his discharge [address] milian had been at his guidance discontinued all antipsychotics. states that he just not been sleeping well. Patient today is seen without cough, no fever or rash chills. Appears to be uncomfortable moving shifting positions often. He was found with an hematocrit of 30.5, normal urine, white blood cell count of 5.8 normal, PT INR 2.9. D-dimer 0.79, lactic acid 1.0, creatinine 1.6 BUN 28. . Admission to [facility] with bradycardia hypertension Patient is again accompanied by his (Nisreen and other family members). states that he did fairly well the first week from discharge. This began to deteriorate for the next week. Cough is resolving however weakness and general difficulty with ambulation due to fatigue. She states that he's not been able to get in to see his primary care Dr. Briseno. He however he has been seen by the other doctor seen in the office. No official classes given. He shouldn't send home health care and nursing staff in the home He was seen by his primary care provider, PAST MEDICAL HISTORY Illnesses: 1. Type II DM with neuropathy 2. Hypertension 3. HLD 4. CAD 5. 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 Osteoarthritis involving hips, knee, shoulder back 7. CKD Stage II 8. History of lung cancer 9. Early Dementia Allergies: 1. NKDA Medications: 1. Albuterol sulfate 1-2 puffs every 6 hours as needed for wheeze. 2. Atenolol 25 mg by mouth daily 3. Fluticasone 1 puff HFA inhaled twice a day. 4. Glimepiride dosage unknown. 5. Lisinopril 20 mg by mouth daily. 6. Lovastatin 40 mg by mouth at bedtime 7. Magnesium supplementation daily. 8. Metformin 1000 mg by mouth twice a day 9. Multivitamin therapy 10. Tizanidine dosage unknown daily use. 11. Warfarin 5 mg by mouth daily Surgery: 1. CABG 1993 (6 vsl bypass) 2. Partial lobectomy (lung cancer) 3. Tonia TKR total knee replacement 4. Spinal surgery; lower back injury Injuries: 1. Back injury 1986 Hospitalizations: 1. multiple FAMILY HISTORY Parents: 1. Father, age related illness, 2. Mother, age related illness Children: 1. daughters 2 daughters present today at the hospital Other significant family history: [other] SOCIAL HISTORY 1. Marital Status: Nisreen (60 years of marriage) 2. Restorationist: unknown 3. Education: HS 4. 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 Occupational health exposures: uknown. HABITS 1. Tobacco: remote hx of smoking 2. Drugs: none 3. Alcohol: none HEALTH SUPERVISION Item/Test Blood Glucose: [GLU] Colonoscopy: [colonoscopy] History and physical exam: [H&P] IMMUNIZATIONS: record not available ADVANCED DIRECTIVES: 1. Living well: available; not on Hospital record 2. POLST: not on Hospital record 3. Code Status: full code; 4. Durable Power Health Information Specialist Health care: Nisreen 5. Donor card: [facility] REVIEW OF SYSTEMS Remarkable for those things stated in the history of present illness and past medical history. Seventeen point review of system completed with the following notable findings no chest pain no nausea no vomiting no diarrhea normal urine output no skin rash.: Constitutional Weakness, Other (chest). Denies: Chills. Cardiovascular Denies: Orthopnea, PND. Gastrointestinal Denies: Abdominal Pain, Diarrhea. Musculoskeletal Arm Pain, Back Pain. Physical Exam Vital Signs / I&Os Vital Signs Date Time Temp Pulse Resp B/P Pulse O2 O2 Flow FiO2 Ox Delivery Rate 12/09 0110 98.1 86 22 141/57 100 Mask 9.0 General Appearance Cooperative, Mild distress, very fidgety HEENT Atraumatic Lungs Clear to auscultation, Normal air movement Breasts No masses or lumps Neck Supple Cardiovascular Regular rate and rhythm, Normal S1 and S2 Abdomen Normal bowel sounds, Soft, No tenderness Extremities No clubbing, Normal pulses, No tenderness Skin No Rashes, No Breakdown Neurological Normal speech, Normal tone Psych/Mental Status Confused LAB Results Laboratory Tests 12/08 Chemistry Plasma Sodium (136 - 145 mmol/L) 142 Plasma Potassium (3.5 - 5.1 mmol/L) 4.7 Plasma Chloride (98 - 107 mmol/L) 106 CO2 (Enzymatic) (21 - 32 mmol/L) 28 BUN (7 - 18 mg/dL) 28 Creatinine (0.6 - 1.3 mg/dL) 1.6 Est GFR ( Amer) (mL/min) 53.44 Est GFR (Non-Af Amer) (mL/min) 44.09 Glucose (70 - 110 mg/dL) 171 Plasma Calcium (8.5 - 10.1 mg/dL) 9.3 Plasma Magnesium (1.8 - 2.4 mg/dL) 1.8 Total Bilirubin (0.0 - 1.0 mg/dL) 0.4 AST (15 - 37 U/L) 22 ALT (12 - 78 U/L) 33 Alkaline Phosphatase (46 - 116 U/L) 56 Creatine Kinase (24 - 260 U/L) 71 Troponin (0.00 - 1.5 ng/mL) <0.05 B-Natriuretic Peptide (5 - 100 pg/ml) 354 Total Protein (6.4 - 8.2 g/dL) 7.2 Albumin (3.3 - 5.0 g/dL) 3.2 Coagulation INR (0.8 - 1.2) 2.9 APTT (24 - 34 SECONDS) 43 D-Dimer, Quantitative (0.27 - 0.52 ug/mLFEU) 0.79 Hematology WBC (4.5 - 11.5 K/uL) 5.8 RBC (4.50 - 5.90 M/uL) 3.22 Hgb (13.5 - 17.5 gm/dL) 10.0 Hct (41.0 - 53.0 %) 30.5 MCV (80 - 100 fL) 95 MCH (26 - 34 pg) 31 RDW (11.6 - 14.8 %) 15.7 Neut % (Auto) (50 - 75 %) 61.6 Lymph % (Auto) (25 - 40 %) 24.5 [place] % (Auto) (3 - 14 %) 11.7 Eos % (Auto) (0 - 4 %) 1.1 Baso % (Auto) (0 - 2 %) 1.1 Plt Count, EDTA (150 - 400 K/uL) 203 PUBS MCHC (31 - 37 g/dL) 33 Urines Urine Color YELLOW Urine Appearance CLEAR Urine pH (5.0 - 8.0) 6.0 Ur Specific [place] (1.010 - 1.030) >= 1.030 Urine Protein (NEGATIVE) 2+ Urine Ketones (NEGATIVE) TRACE Urine Blood (NEGATIVE) NEGATIVE Urine Nitrite (NEGATIVE) NEGATIVE Urine Bilirubin (NEGATIVE) NEGATIVE Urine Urobilinogen (0.2 - 1.0 EU/dL) 0.2 Ur Leukocyte Esterase (NEGATIVE) NEGATIVE Urine RBC (0 - 1 rbc/hpf) NONE SEEN Urine WBC (0 - 1 wbc/hpf) 0-1 Ur Epithelial Cells (0 - 5 EPI/hpf) RARE Urine Bacteria (NONE SEEN) NONE SEEN Urine Glucose (NEGATIVE) NEGATIVE Urine Comment CULT NOT INDICATED 12/08 Chemistry Lactic Acid (0.4 - 2.0 mmol/L) 1.0 Procalcitonin (0 - 0.5 ng/mL) <0.5 Microbiology Date/Time Procedure - Status Source Growth 12/08 2229 Blood Culture - RECD BLOOD 12/09 2219 Blood Culture - RECD BLOOD Imaging 1. Mild to moderate improvement with resolving bibasilar pneumonia (mild residual at the left lung base). 2. Status post coronary artery bypass graft. Assessment and Plan Problem List 1. Bradycardia Plan Patient was found to be bradycardic on the admission which is in the setting of a previous CABG or associated coronary artery disease. Atropine available when needed. Patient will be started on telemetry Echocardiogram with cardiology consult. Continue with the dopamine drip to maintain taper or titrate. Maintain map greater than 60 heart rate above 60 Started on IV maintenance fluids. 2. Hypotension Plan Patient was found to be hypotensive on admission. Patient currently on a dopamine drip. This will be titrated Maintain map above 60. Echocardiogram when available. Stabilize; following enzymes. Titrate dopamine Cardiology for heart failure. 3. Hypoxia Plan Patient was found to be hypoxic on room air now improved. Patient on a Ventimask to maintain sats above 92%. DuoNeb's every 6 hours. Improved chest x-ray. Double coverage for pneumonia Follow-up labs in the AM. 4. Afib Plan Maintain the INR between 2 and 3 Currently on 5 mg warfarin. Adequate DVT prophylaxis. 5. Diabetes mellitus Plan Patient was started back on his home diabetic medication regimen. Low-dose sliding scale. Carbohydrate consistent diet Current status: Fair Anticipated discharge date: 2-3 days Anticipated discharge placement: Home versus snaf Patient care time: Time spent in chart review, patient interview, physical exam, CPOE, and care documentation: Jevity minutes Visit to patient today: Once Complexity of care: Mild/moderate E&M Codes Admission: Inpt-High/[id number]
[2016-12-09] MEDS ORDERED: VITAMIN D-31000 UNIT PO ×2 (01:31→01:32)
--- NOTE | 2016-12-09 07:06 | Progress Note ---
Subjective General Note Date: December 09, 2016 Admission Date: December 08, 2016 Hospital Day: 2 PCP: Shorty Moreno M.D. Status: Inpatient, CCU Advanced Directive: FULL CODE Room: 303 Admission History: The patient is a 81-year-old white male with a significant past medical history of atrial fibrillation, coronary artery disease status post CABG, type 2 diabetes mellitus, hypertension, osteoarthritis, who presented to [facility] emergency room on the day of admission secondary to complaints of shortness of breath and weakness. [facility] ER evaluation consistent with bradycardia, hypotension, atrial fibrillation, diabetes mellitus and hypoxia. Secondary to the above, the patient was admitted by Mitchel Hernandez M.D. for further evaluation and treatment. For other history present illness, past medical history, family history, social history, review of systems, and admission physical examination please see the patient's history and physical examination and ER visit note in the patient's medical record. Subjective: The patient status remains unchanged. Denies shortness of breath at this time. Remains confused. Remains weak Patient requests: No specific Medications and Allergies Medications Current Medications Sig/Ruth Start time Last Medication Dose Route Stop Time Status Admin Azithromycin 500 MG DAILY 12/10 0900 UNV Sodium Chloride 250 ML IV 12/13 1000 Levofloxacin/Dextrose 100 ML DAILY 12/10 0900 UNV IV Atorvastatin Calcium 40 MG QPM 12/09 1800 AC PO Warfarin Sodium 5 MG DAILY@1400 12/09 1400 UNV PO Atenolol 25 MG DAILY 12/09 0900 CANr PO Lisinopril 20 MG DAILY 12/09 0900 r PO Diltiazem/Dextrose 125 ML TITRATE 12/09 0500 AC IV Metformin HCl 1,000 MG BID 12/09 0027 UNV PO Famotidine/Sodium 50 ML QHS 12/09 0017 AC 12/09 Chloride IV 0249 Docusate Sodium 100 MG BID 12/09 0016 AC PO Acetaminophen 650 MG Q4H PRN 12/09 0015 AC PO Acetaminophen 650 MG Q4H PRN 12/09 0015 AC PO Al Hydrox/Mg Hydrox/ 15 ML Q1H PRN 12/09 0015 AC Simethicone PO Albuterol Sulfate 2.5 MG RTQ3H PRN 12/09 0015 AC IN Albuterol/Ipratropium 3 ML RTQ6H PRN 12/09 0015 AC IN Atropine Sulfate 0.5 MG Q3MIN PRN 12/09 14 AC IV Lidocaine HCl See Dose ONCE PRN 12/09 14 AC Insts (1) IV Magnesium Hydroxide 10 ML DAILY PRN 12/09 14 AC PO Morphine Sulfate 2 MG Q3M PRN 12/09 14 AC IV Nitroglycerin 0.4 MG Q5M PRN 12/09 14 AC SL Ondansetron HCl 4 MG Q6H PRN 12/09 14 AC IV Sodium Chloride 1,000 ML ASDIRECTED 12/09 14 AC 12/09 IV 0341 Zolpidem Tartrate 5 MG QHS PRN 12/09 14 AC PO Dose Instructions: (1)Lidocaine HCl: 1.5 MG/KG Allergies Coded Allergies: NKA (11/20/16) Reconcile Medications Scheduled Medications Albuterol Sulfate (Proair Hfa) AER 2 PUFF IN QID (Reported) Atenolol (Atenolol 25 MG) 25 MG TAB 25 MG PO DAILY (Reported) Calcium Citrate-Vitamin D (Adan-Citrate Plus Vitamin) TAB 630 MG PO DAILY ( Reported) Cholecalciferol (Vitamin D-3 1000 Units Tablet) 1,000 UNIT TAB 2,000 UNITS PO DAILY (Reported) Fluticasone Propionate (Nasal) (Flonase Allergy Relief) 50 MCG/ACT SPR 2 SPRAY NA DAILY (Reported) Glimepiride 4 MG TAB 4 MG PO BID (Reported) Lisinopril (Zestril 10 MG) 10 MG TAB 20 MG PO DAILY (Reported) Lovastatin (Lovastatin 40 MG) 40 MG TAB 40 MG PO EVENING MEAL (Reported) Magnesium Oxide (Mag-Ox 400) 400 MG TAB 250 MG PO DAILY (Reported) MetFORMIN HYDROCHLORIDE (Glucophage 500 MG) 500 MG TAB 1,000 MG PO BID ( Reported) Warfarin Sodium (Coumadin) 2.5 MG TAB 5 MG PO DAILY (Reported) Discontinued Medications Cefuroxime Axetil (Ceftin 500 MG) 500 MG TAB 500 MG PO BID Discontinued reason: No Longer Taking Cholecalciferol (Vitamin D-3 1000 Units Tablet) 1,000 UNIT TAB 2,000 UNITS PO DAILY (Reported) Discontinued reason: Duplicate Entry Fluticasone 220 Mcg Hfa (Flovent Hfa 220 Hfa) 220 MCG AER 1 PUFF INH BID ( Reported) Discontinued reason: Duplicate Entry Glimepiride 1 MG TAB 4 MG PO DAILY (Reported) Discontinued reason: Duplicate Entry Olanzapine (Olanzapine Odt 5 MG) 5 MG TAB 10 MG PO 2100 Discontinued reason: No Longer Taking Physical Exam Vital Signs / I&Os Vital Signs Date Time Temp Pulse Resp B/P Pulse O2 O2 Flow FiO2 Ox Delivery Rate 12/09 0550 116/63 12/09 0546 76 19 97 Nasal 3.0 Cannula 12/09 0514 63 19 124/56 96 Nasal 3.0 Cannula 12/09 0414 62 19 113/54 95 Nasal 3.0 Cannula 12/09 0319 97.7 12/09 0316 66 17 113/58 96 Nasal 3.0 Cannula 12/09 0234 3.0 12/09 0222 96 19 148/86 96 Mask 9.0 12/09 0110 98.1 86 22 141/57 100 Mask 9.0 General Appearance Cooperative, No acute distress, slightly lethargic, confused Lungs Normal air movement, basilar rales. Scattered rhonchi Cardiovascular Normal S1 and S2, irregular rhythm. Grade 2/6 systolic murmur. Mild bradycardia Abdomen Normal bowel sounds, Soft, No tenderness Extremities No cyanosis, No clubbing, 1+ pedal edema present Neurological Cranial nerves intact, No lateralizing signs, confused Psych/Mental Status Confused LAB Results Laboratory Tests 12/09 12/08 12/08 12/08 0625 2230 2230 2136 Chemistry Plasma Sodium Pending Plasma Potassium Pending Plasma Chloride Pending CO2 (Enzymatic) Pending BUN Pending Creatinine Pending Est GFR ( Amer) Pending Est GFR (Non-Af Amer) Pending Glucose Pending Lactic Acid (0.4 - 2.0 mmol/L) 1.0 Plasma Calcium Pending Plasma Magnesium Pending Total Bilirubin Pending AST Pending ALT Pending Alkaline Phosphatase Pending Total Protein Pending Albumin Pending Procalcitonin (0 - 0.5 ng/mL) <0.5 Coagulation INR Pending Urines Urine Color YELLOW Urine Appearance CLEAR Urine pH (5.0 - 8.0) 6.0 Ur Specific [place] (1.010 - 1.030) >= 1.030 Urine Protein (NEGATIVE) 2+ Urine Ketones (NEGATIVE) TRACE Urine Blood (NEGATIVE) NEGATIVE Urine Nitrite (NEGATIVE) NEGATIVE Urine Bilirubin (NEGATIVE) NEGATIVE Urine Urobilinogen (0.2 - 1.0 EU/dL) 0.2 Ur Leukocyte Esterase (NEGATIVE) NEGATIVE Urine RBC (0 - 1 rbc/hpf) NONE SEEN Urine WBC (0 - 1 wbc/hpf) 0-1 Ur Epithelial Cells (0 - 5 EPI/hpf) RARE Urine Bacteria (NONE SEEN) NONE SEEN Urine Glucose (NEGATIVE) NEGATIVE Urine Comment CULT NOT INDICATED 12/08 Chemistry Plasma Sodium (136 - 145 mmol/L) 142 Plasma Potassium (3.5 - 5.1 mmol/L) 4.7 Plasma Chloride (98 - 107 mmol/L) 106 CO2 (Enzymatic) (21 - 32 mmol/L) 28 BUN (7 - 18 mg/dL) 28 Creatinine (0.6 - 1.3 mg/dL) 1.6 Est GFR ( Amer) (mL/min) 53.44 Est GFR (Non-Af Amer) (mL/min) 44.09 Glucose (70 - 110 mg/dL) 171 Plasma Calcium (8.5 - 10.1 mg/dL) 9.3 Plasma Magnesium (1.8 - 2.4 mg/dL) 1.8 Total Bilirubin (0.0 - 1.0 mg/dL) 0.4 AST (15 - 37 U/L) 22 ALT (12 - 78 U/L) 33 Alkaline Phosphatase (46 - 116 U/L) 56 Creatine Kinase (24 - 260 U/L) 71 Troponin (0.00 - 1.5 ng/mL) <0.05 B-Natriuretic Peptide (5 - 100 pg/ml) 354 Total Protein (6.4 - 8.2 g/dL) 7.2 Albumin (3.3 - 5.0 g/dL) 3.2 Coagulation INR (0.8 - 1.2) 2.9 APTT (24 - 34 SECONDS) 43 D-Dimer, Quantitative (0.27 - 0.52 ug/mLFEU) 0.79 Hematology WBC (4.5 - 11.5 K/uL) 5.8 RBC (4.50 - 5.90 M/uL) 3.22 Hgb (13.5 - 17.5 gm/dL) 10.0 Hct (41.0 - 53.0 %) 30.5 MCV (80 - 100 fL) 95 MCH (26 - 34 pg) 31 RDW (11.6 - 14.8 %) 15.7 Neut % (Auto) (50 - 75 %) 61.6 Lymph % (Auto) (25 - 40 %) 24.5 [place] % (Auto) (3 - 14 %) 11.7 Eos % (Auto) (0 - 4 %) 1.1 Baso % (Auto) (0 - 2 %) 1.1 Plt Count, EDTA (150 - 400 K/uL) 203 PUBS MCHC (31 - 37 g/dL) 33 Microbiology Date/Time Procedure - Status Source Growth 12/08 2229 Blood Culture - RECD BLOOD 12/09 2219 Blood Culture - RECD BLOOD Assessment and Plan Problem List 1. Bradycardia Plan -patient presents with atrial fibrillation with associated bradycardia. -Patient took long-acting beta merle yesterday -Hold beta merle at this time -Monitor -Possible need for pacemaker placement should patient has symptomatic bradycardia off beta blockers and rate suppressing drugs. 2. Hypotension Plan -Patient with findings of hypotension requiring pressor agents -Dopamine -Wean dopamine as appropriate -IV fluid therapy 3. Hypoxia Plan -Patient with findings of hypoxemia on admission -Chest x-ray shows resolving pneumonia, no signs of CHF -BNP only minimally elevated at 354 -We'll check echocardiogram on 12/11/16 -Monitor -Inhalation bronchodilators 4. Afib Plan -Patient with history of atrial fibrillation -Atrial fibrillation with slow ventricular response -Hold beta blockers -Check echocardiogram -Continue anticoagulation 5. Diabetes mellitus Plan -Patient with history of diabetes mellitus -Blood sugar borderline elevated -Continue metformin with insulin sliding scale -Monitor 6. Mental status change Status Acute Onset Date Unknown Plan -Patient with long-standing mental status changes with acute changes prior to admission -Patient with increased confusion, lethargy, weakness -Avoid narcotics, benzodiazepines, and psychotropic medications as possible -Patient with progressive behavioral problems specifically . This has led to poor sleep for the patient and over the past 2 weeks -Patient will most likely require placement in custodial facility secondary to inability of family to care for the patient at home at this time. -Discharge planning to evaluate for custodial placement post discharge. 7. CHF (congestive heart failure) Status Acute Onset Date Unknown Plan -Patient with findings of mild elevation of BNP, new/increasing peripheral edema , orthopnea and shortness of breath with exertion -Check echocardiogram -LEONARD inhibitor, diuretics, and low-dose beta merle if possible in the setting of hypotension and bradycardia -Monitor 8. Sleep apnea Status Chronic Onset Date Unknown Plan -Patient's family give a history of possible sleep apnea -Patient with episodes of hypoxemia with sleep during this hospitalization -We'll set up home sleep evaluation post discharge -Monitor 9. Chronic anticoagulation Status Chronic Onset Date Unknown Plan -Patient with history of chronic anticoagulation -INR 2.6 -Continue Coumadin at present dosage schedule -Daily INR Current status: Fair, unstable Anticipated discharge date: Anticipated discharge in 2-3 days Anticipated discharge placement: care home facility Patient care time: Time in chart review, patient interview, physical exam, CPOE, and care documentation: 35 mins Visit to patient today: 3 Complexity of care: High DVT prophylaxis: Coumadin E&M Codes Rounding: Inpt-High/[id number]
[2016-12-10] VITALS (8 sets, daily range): BP systolic 110–174; BP diastolic 56–93
--- NOTE | 2016-12-10 07:00 | Progress Note ---
Subjective General Note Date: December 10, 2016 Admission Date: December 08, 2016 Hospital Day: 3 PCP: Shorty Moreno M.D. Status: Inpatient, CCU Advanced Directive: FULL CODE Room: 303 Admission History: The patient is a 81-year-old white male with a significant past medical history of atrial fibrillation, coronary artery disease status post CABG, type 2 diabetes mellitus, hypertension, osteoarthritis, who presented to [facility] emergency room on the day of admission secondary to complaints of shortness of breath and weakness. [facility] ER evaluation consistent with bradycardia, hypotension, atrial fibrillation, diabetes mellitus and hypoxia. Secondary to the above, the patient was admitted by Mitchel Hernandez M.D. for further evaluation and treatment. For other history present illness, past medical history, family history, social history, review of systems, and admission physical examination please see the patient's history and physical examination and ER visit note in the patient's medical record. Subjective: The patient is alert and talkative this a.m. He voices no complaints. Remains confused. Appears at baseline mental status. No significant agitation or problems last night Patient requests: None Medications and Allergies Medications Current Medications Sig/Ruth Start time Last Medication Dose Route Stop Time Status Admin Levofloxacin/Dextrose 150 ML Q48H 12/11 0900 AC IV Atorvastatin Calcium 40 MG QPM 12/09 1800 AC 12/09 PO 1836 Insulin Human Lispro See Dose ACHS 12/09 1630 AC Insts (1) SC Albuterol/Ipratropium 3 ML RTQ6H 12/09 1400 AC 12/10 IN 0143 Warfarin Sodium 5 MG DAILY@1400 12/09 1400 AC 12/09 PO 1428 Lisinopril 20 MG DAILY 12/09 0900 AC PO Metformin HCl 1,000 MG BID 12/09 0900 AC 12/09 PO 2104 Famotidine/Sodium 50 ML QHS 12/09 0017 AC 12/09 Chloride IV 2104 Docusate Sodium 100 MG BID 12/09 0016 AC 12/09 PO 2104 Acetaminophen 650 MG Q4H PRN 12/09 0015 AC PO Al Hydrox/Mg Hydrox/ 15 ML Q1H PRN 12/09 0015 AC Simethicone PO Albuterol Sulfate 2.5 MG RTQ3H PRN 12/09 0015 AC IN Atropine Sulfate 0.5 MG Q3MIN PRN 12/09 0015 AC IV Lidocaine HCl See Dose ONCE PRN 12/09 14 AC Insts (2) IV Magnesium Hydroxide 10 ML DAILY PRN 12/09 14 AC PO Morphine Sulfate 2 MG Q3M PRN 12/09 14 AC IV Nitroglycerin 0.4 MG Q5M PRN 12/09 14 AC SL Ondansetron HCl 4 MG Q6H PRN 12/09 14 AC IV Zolpidem Tartrate 5 MG QHS PRN 12/09 14 AC PO Dose Instructions: (1)Insulin Human Lispro: LOW DOSE SLIDING SCALE (2)Lidocaine HCl: 1.5 MG/KG Allergies Coded Allergies: NKA (11/20/16) Reconcile Medications Scheduled Medications Albuterol Sulfate (Proair Hfa) AER 2 PUFF IN QID (Reported) Atenolol (Atenolol 25 MG) 25 MG TAB 25 MG PO DAILY (Reported) Calcium Citrate-Vitamin D (Adan-Citrate Plus Vitamin) TAB 630 MG PO DAILY ( Reported) Cholecalciferol (Vitamin D-3 1000 Units Tablet) 1,000 UNIT TAB 2,000 UNITS PO DAILY (Reported) Fluticasone Propionate (Nasal) (Flonase Allergy Relief) 50 MCG/ACT SPR 2 SPRAY NA DAILY (Reported) Glimepiride 4 MG TAB 4 MG PO BID (Reported) Lisinopril (Zestril 10 MG) 10 MG TAB 20 MG PO DAILY (Reported) Lovastatin (Lovastatin 40 MG) 40 MG TAB 40 MG PO EVENING MEAL (Reported) Magnesium Oxide (Mag-Ox 400) 400 MG TAB 250 MG PO DAILY (Reported) MetFORMIN HYDROCHLORIDE (Glucophage 500 MG) 500 MG TAB 1,000 MG PO BID ( Reported) Warfarin Sodium (Coumadin) 2.5 MG TAB 5 MG PO DAILY (Reported) Discontinued Medications Cefuroxime Axetil (Ceftin 500 MG) 500 MG TAB 500 MG PO BID Discontinued reason: No Longer Taking Cholecalciferol (Vitamin D-3 1000 Units Tablet) 1,000 UNIT TAB 2,000 UNITS PO DAILY (Reported) Discontinued reason: Duplicate Entry Fluticasone 220 Mcg Hfa (Flovent Hfa 220 Hfa) 220 MCG AER 1 PUFF INH BID ( Reported) Discontinued reason: Duplicate Entry Glimepiride 1 MG TAB 4 MG PO DAILY (Reported) Discontinued reason: Duplicate Entry Olanzapine (Olanzapine Odt 5 MG) 5 MG TAB 10 MG PO 2100 Discontinued reason: No Longer Taking Physical Exam Vital Signs / I&Os Vital Signs Date Time Temp Pulse Resp B/P Pulse O2 O2 Flow FiO2 Ox Delivery Rate 12/10 0653 60 22 131/86 98 12/10 0328 98.8 73 16 154/64 96 Room Air 12/09 2209 98.2 53 17 120/54 99 Room Air 12/09 2121 Room Air 12/09 1817 56 21 116/59 94 Room Air 12/09 1700 63 21 117/97 97 Room Air 12/09 1600 117/97 12/09 1600 63 21 96 Room Air 12/09 1512 60 22 95/53 98 Room Air 12/09 1445 98.4 58 19 108/59 98 Room Air 12/09 1300 61 19 98/75 95 Nasal 3.0 Cannula 12/09 1200 51 19 149/49 96 Nasal 3.0 Cannula 12/09 1100 121 17 124/56 96 Nasal 3.0 Cannula 12/09 1025 98.2 58 19 113/65 96 Nasal 3.0 Cannula 12/09 0900 53 18 114/53 95 Nasal 3.0 Cannula 12/09 0851 3.0 12/09 0800 99 18 114/69 94 Nasal 3.0 Cannula 12/09 0730 Room Air 12/09 0712 98.2 67 24 118/65 93 Nasal 3.0 Cannula I&O 12/10 0000 12/09 1600 12/09 0800 Intake Total 300 330 682 Output Total 900 Balance 300 330 -218 General Appearance Alert, Cooperative, No acute distress Lungs Clear to auscultation, Normal air movement Cardiovascular Normal S1 and S2, irregular rhythm. Rate controlled. Abdomen Normal bowel sounds, Soft, No tenderness Extremities No cyanosis, No clubbing, 1-2+ edema ankle/foot Neurological Cranial nerves intact, No lateralizing signs Psych/Mental Status Confused LAB Results Laboratory Tests 12/10 12/10 0550 0550 Chemistry Plasma Sodium (136 - 145 mmol/L) 138 Plasma Potassium (3.5 - 5.1 mmol/L) 4.2 Plasma Chloride (98 - 107 mmol/L) 103 CO2 (Enzymatic) (21 - 32 mmol/L) 29 BUN (7 - 18 mg/dL) 21 Creatinine (0.6 - 1.3 mg/dL) 1.3 Est GFR ( Amer) (mL/min) >60 Est GFR (Non-Af Amer) (mL/min) 56.03 Glucose (70 - 110 mg/dL) 103 Plasma Calcium (8.5 - 10.1 mg/dL) 9.0 Plasma Magnesium (1.8 - 2.4 mg/dL) 1.8 Iron Pending TIBC Pending Iron Saturation Pending Vitamin B12 (211 - 946 pg/mL) Pending Folate (>3.0 ng/mL) Pending Coagulation INR (0.8 - 1.2) 2.5 Hematology WBC Pending RBC Pending Hgb Pending Hct Pending MCV Pending MCH Pending RDW Pending Plt Count, EDTA Pending PUBS MCHC Pending Assessment and Plan Problem List 1. Mental status change Status Acute Onset Date Unknown Plan -Patient at baseline mental status -No significant agitation or insomnia last p.m. -Hold medications as possible -Possible discharge tomorrow if stable 2. CHF (congestive heart failure) Status Acute Onset Date Unknown Plan -Patient with history of CHF -No evidence of CHF at this time. -Check echocardiogram -Consider LEONARD inhibitor, diuretic based on echocardiogram findings -Low-salt diet 3. Sleep apnea Status Chronic Onset Date Unknown Plan -Patient with history of sleep apnea -We'll attempt to schedule outpatient sleep study postdischarge 4. Chronic anticoagulation Status Chronic Onset Date Unknown Plan -Patient with history of chronic anticoagulation -INR therapeutic at 2.5 -Continue anticoagulation -Monitor 5. Atrial fibrillation Status Chronic Onset Date Unknown Plan -Patient with history of atrial fibrillation. -Rate controlled off medications persistent mild bradycardia -Continue to monitor outpatient follow-up with cardiology patient will most likely require pacemaker sometime in the future secondary to bradycardia with no meds for rate control 6. Diabetes mellitus Plan -Patient with history of diabetes mellitus. -Blood sugar adequately controlled at this time. -Consistent carbohydrate diet -Monitor 7. Bradycardia Plan -Improved off beta blockers -Monitor 8. Anemia, iron deficiency Status Acute Onset Date Unknown Plan -Patient with findings of iron deficiency anemia -Ferrous sulfate 325 mg by mouth twice a day -Monitor 9. Hypotension Plan -Improved -Off dopamine -Monitor Current status: Fair, improved Anticipated discharge date: Anticipated discharge in 1-2 days Anticipated discharge placement: Home versus retirement facility Patient care time: Time in chart review, patient interview, physical exam, CPOE, and care documentation: 35 mins Visit to patient today: 1 Complexity of care: High DVT prophylaxis: Coumadin E&M Codes Rounding: Inpt-High/[id number]
[2016-12-11 04:54] VITALS: BP 157/67
[2016-12-11 06:47] VITALS: BP 145/86
--- NOTE | 2016-12-11 07:49 | Progress Note ---
Subjective General Note Date: December 11, 2016 Admission Date: December 08, 2016 Hospital Day: 4 PCP: Shorty Moreno M.D. Status: Inpatient, CCU Advanced Directive: FULL CODE Room: 303 Admission History: The patient is a 81-year-old white male with a significant past medical history of atrial fibrillation, coronary artery disease status post CABG, type 2 diabetes mellitus, hypertension, osteoarthritis, who presented to [facility] emergency room on the day of admission secondary to complaints of shortness of breath and weakness. [facility] ER evaluation consistent with bradycardia, hypotension, atrial fibrillation, diabetes mellitus and hypoxia. Secondary to the above, the patient was admitted by Mitchel Hernandez M.D. for further evaluation and treatment. For other history present illness, past medical history, family history, social history, review of systems, and admission physical examination please see the patient's history and physical examination and ER visit note in the patient's medical record. Subjective: Doing well. Ready for discharge Patient requests: None Medications and Allergies Medications Current Medications Sig/Ruth Start time Last Medication Dose Route Stop Time Status Admin Ferrous Sulfate 325 MG BIDWC 12/10 0900 AC 12/10 PO 1739 Atorvastatin Calcium 40 MG QPM 12/09 1800 AC 12/10 PO 1739 Insulin Human Lispro See Dose ACHS 12/09 1630 AC 12/10 Insts (1) SC 2203 Albuterol/Ipratropium 3 ML RTQ6H 12/09 1400 AC 12/11 IN 0211 Warfarin Sodium 5 MG DAILY@1400 12/09 1400 AC 12/10 PO 1307 Lisinopril 20 MG DAILY 12/09 0900 AC 12/10 PO 0815 Metformin HCl 1,000 MG BID 12/09 0900 AC 12/10 PO 2203 Famotidine/Sodium 50 ML QHS 12/09 0017 AC 12/10 Chloride IV 2203 Docusate Sodium 100 MG BID 12/09 0016 AC 12/10 PO 2203 Acetaminophen 650 MG Q4H PRN 12/09 0015 AC PO Al Hydrox/Mg Hydrox/ 15 ML Q1H PRN 12/09 0015 AC Simethicone PO Albuterol Sulfate 2.5 MG RTQ3H PRN 12/09 0015 AC IN Atropine Sulfate 0.5 MG Q3MIN PRN 12/09 0015 AC IV Lidocaine HCl See Dose ONCE PRN 12/09 0015 AC Insts (2) IV Magnesium Hydroxide 10 ML DAILY PRN 12/09 14 AC PO Morphine Sulfate 2 MG Q3M PRN 12/09 14 AC IV Nitroglycerin 0.4 MG Q5M PRN 12/09 14 AC SL Ondansetron HCl 4 MG Q6H PRN 12/09 14 AC IV Zolpidem Tartrate 5 MG QHS PRN 12/09 14 AC PO Dose Instructions: (1)Insulin Human Lispro: LOW DOSE SLIDING SCALE (2)Lidocaine HCl: 1.5 MG/KG Allergies Coded Allergies: NKA (11/20/16) Reconcile Medications Scheduled Medications Calcium Citrate-Vitamin D (Adan-Citrate Plus Vitamin) TAB 630 MG PO DAILY ( Reported) Cholecalciferol (Vitamin D-3 1000 Units Tablet) 1,000 UNIT TAB 2,000 UNITS PO DAILY (Reported) Fluticasone Propionate (Nasal) (Flonase Allergy Relief) 50 MCG/ACT SPR 2 SPRAY NA DAILY (Reported) Glimepiride 4 MG TAB 4 MG PO DAILY (Reported) Lisinopril (Zestril 10 MG) 10 MG TAB 20 MG PO DAILY (Reported) Lovastatin (Lovastatin 40 MG) 40 MG TAB 40 MG PO EVENING MEAL (Reported) Magnesium Oxide (Mag-Ox 400) 400 MG TAB 250 MG PO DAILY (Reported) MetFORMIN HYDROCHLORIDE (Glucophage 500 MG) 500 MG TAB 1,000 MG PO BID ( Reported) Warfarin Sodium (Coumadin) 2.5 MG TAB 5 MG PO DAILY (Reported) Scheduled PRN Medications Albuterol Sulfate (Proair Hfa) AER 2 PUFF IN QID PRN sob (Reported) Discontinued Medications Atenolol (Atenolol 25 MG) 25 MG TAB 25 MG PO DAILY (Reported) Discontinued reason: Not Indicated Cefuroxime Axetil (Ceftin 500 MG) 500 MG TAB 500 MG PO BID Discontinued reason: No Longer Taking Cholecalciferol (Vitamin D-3 1000 Units Tablet) 1,000 UNIT TAB 2,000 UNITS PO DAILY (Reported) Discontinued reason: Duplicate Entry Fluticasone 220 Mcg Hfa (Flovent Hfa 220 Hfa) 220 MCG AER 1 PUFF INH BID ( Reported) Discontinued reason: Duplicate Entry Glimepiride 1 MG TAB 4 MG PO DAILY (Reported) Discontinued reason: Duplicate Entry Olanzapine (Olanzapine Odt 5 MG) 5 MG TAB 10 MG PO 2100 Discontinued reason: No Longer Taking Physical Exam Vital Signs / I&Os Vital Signs Date Time Temp Pulse Resp B/P Pulse O2 O2 Flow FiO2 Ox Delivery Rate 12/11 0740 59 12/11 0647 98.1 125 22 145/86 95 Room Air 0.0 12/11 0454 74 17 157/67 96 Room Air 12/10 2143 98.4 67 25 140/93 94 Room Air 12/10 2100 Room Air 12/10 1900 98.1 87 27 174/83 95 Room Air 0.0 12/10 1355 73 23 147/58 95 Room Air 12/10 1310 62 16 127/66 98 Room Air 12/10 0951 98.2 61 22 110/62 96 Room Air 3.0 12/10 0818 Room Air 12/10 0815 137/56 I&O 12/11 0000 12/10 1600 12/10 0800 Intake Total 360 1200 900 Output Total 115 097 9061 Balance -315 900 -250 General Appearance Alert, Cooperative, No acute distress Lungs Clear to auscultation Cardiovascular Normal S1 and S2, Irregular rhythm, rate normal Abdomen Normal bowel sounds, Soft, No tenderness Extremities No cyanosis, No clubbing Neurological Cranial nerves intact, No lateralizing signs Psych/Mental Status Mood normal, Confused Assessment and Plan Problem List 1. Mental status change Status Acute Onset Date Unknown Plan Improved. MS at baseline 2. CHF (congestive heart failure) Status Acute Onset Date Unknown Plan -Echo shows normal LVEF with mod MS, mild -No evidence of significant CHF -Outpatient f/u with pcp 3. Sleep apnea Status Chronic Onset Date Unknown Plan -Outpatient follow up with PCPto schedule home sleep study screening. 4. Atrial fibrillation Status Chronic Onset Date Unknown Plan -rate controlled -no significant bradycardia off beta blockers -outpatient follow up with pcp 5. Anemia, iron deficiency Status Acute Onset Date Unknown Plan -FeSO4 325mg po bid -Follow up with PCP 6. Chronic anticoagulation Status Chronic Onset Date Unknown Plan Stable, INR therapeutic 7. Diabetes mellitus Plan -Adequate control -Outpatient follow up with PCP 8. Hypotension Plan -Resolved 9. Bradycardia Plan -Resolved Current status: Fair, improved Anticipated discharge date: Anticipated discharge this p.m. or in a.m. Anticipated discharge placement: Home versus correction facility Patient care time: Time in chart review, patient interview, physical exam, CPOE, and care documentation: 35 mins Visit to patient today: 1 Complexity of care: High DVT prophylaxis: Coumadin E&M Codes Rounding: Inpt-High/[id number]
--- NOTE | 2016-12-11 08:42 | ED DISCHARGE INSTRUCTIONS ---
Patient: FLORESITA WANG General Instructions [facility] VisitID: [id number] [address] [place] [address] 81y, M Registration Date/Time: 12/08/2016 Bacterial pneumonia. Empiric antibiotics given in the ED. (A fib with profound bradycardia). INSTRUCTIONS Follow-up: Blood pressure screening was not performed during this visit because the patient has an active diagnosis of hypertension. (Electronically signed by Rafi Ayoub Dr. 12/11/2016 8:41)
--- NOTE | 2016-12-11 08:42 | ED MED RECONCILIATION SUMMARY ---
Patient: FLORESITA WANG Medication Reconciliation Report [facility] VisitID: [id number] [address] [place] [address] 81y, M Registration Date/Time: 12/08/2016 Weight: 90.7 kg Height/Length: 63 in. BMI: 35.4 ALLERGIES: No Known Drug Allergy The patient's Home Medications are listed below: THE FOLLOWING MEDICATIONS NEED TO BE RECONCILED: Acetaminophen Oral Albuterol Sulfate Inhalation Atenolol Oral 25 mg Fluticasone Propionate HFA Inhalation Glimepiride Oral (4 mg) 1 tablet, BID Lisinopril Oral 20 mg, daily Lovastatin Oral (40 mg), at bedtime Magnesium Oral MetFORMIN HCl Oral (1000 mg) Multivitamin Oral TraZODone HCl Oral (50 mg) 2 tablets, at bedtime Warfarin Sodium Oral The source(s) of the original Home Medication information: Not obtained. The following Medications were given to the patient in the Emergency Department: Atropine [IVP] IVP 0.5 mg, administered: 12/08/2016 8:40:00 PM Dopamine [IV Drip] Drip IV bolus 0, then 5 mcg 5 mcg/kg/min, administered: 12/08/2016 10:00:00 PM Azithromycin [IVPB] IVPB bolus 0, then 500 mg, administered: 12/08/2016 11:14:00 PM Levofloxacin [IVPB] IVPB bolus 0, then 750 mg, administered: 12/09/2016 12:21:00 AM The following Medications were prescribed to the patient: None.
--- NOTE | 2016-12-11 08:42 | ED DISCHARGE INSTRUCTIONS ---
Patient: FLORESITA WANG General Instructions [facility] VisitID: [id number] [address] [place] [address] 81y, M Registration Date/Time: 12/08/2016 Bacterial pneumonia. Empiric antibiotics given in the ED. (A fib with profound bradycardia). INSTRUCTIONS Follow-up: Blood pressure screening was not performed during this visit because the patient has an active diagnosis of hypertension. (Electronically signed by Rafi Ayoub Dr. 12/11/2016 8:41)
--- NOTE | 2016-12-11 08:42 | ED MED RECONCILIATION SUMMARY ---
Patient: FLORESITA WANG Medication Reconciliation Report [facility] VisitID: [id number] [address] [place] [address] 81y, M Registration Date/Time: 12/08/2016 Weight: 90.7 kg Height/Length: 63 in. BMI: 35.4 ALLERGIES: No Known Drug Allergy The patient's Home Medications are listed below: THE FOLLOWING MEDICATIONS NEED TO BE RECONCILED: Acetaminophen Oral Albuterol Sulfate Inhalation Atenolol Oral 25 mg Fluticasone Propionate HFA Inhalation Glimepiride Oral (4 mg) 1 tablet, BID Lisinopril Oral 20 mg, daily Lovastatin Oral (40 mg), at bedtime Magnesium Oral MetFORMIN HCl Oral (1000 mg) Multivitamin Oral TraZODone HCl Oral (50 mg) 2 tablets, at bedtime Warfarin Sodium Oral The source(s) of the original Home Medication information: Not obtained. The following Medications were given to the patient in the Emergency Department: Atropine [IVP] IVP 0.5 mg, administered: 12/08/2016 8:40:00 PM Dopamine [IV Drip] Drip IV bolus 0, then 5 mcg 5 mcg/kg/min, administered: 12/08/2016 10:00:00 PM Azithromycin [IVPB] IVPB bolus 0, then 500 mg, administered: 12/08/2016 11:14:00 PM Levofloxacin [IVPB] IVPB bolus 0, then 750 mg, administered: 12/09/2016 12:21:00 AM The following Medications were prescribed to the patient: None.
--- NOTE | 2016-12-11 08:42 | ED MAR SUMMARY ---
..... Medication Administration Record [facility] [address] [place] [address] Patient: FLORESITA WANG Visit ID: [id number] 81y, M Weight: 90.7 kg Height/Length: 63 in BMI: 35.4 ALLERGIES: No Known Drug Allergy Given 20:40 12/08/2016 Loraine Pizano R.N. Medication Administered: ATROPINE [IVP], Dose: 0.5 mg IVP over 1 second(s), Site: #1 right forearm. Medication Ordered: Atropine IV 1 mg (HIGH ALERT MEDICATION, NOW). Start 22:00 12/08/2016 Loraine Pizano R.N., Continued Upon Admission 00:33 12/09/2016 Loraine Pizano R.N. Medication Administered: DOPAMINE [IV DRIP], Dose: 5 mcg Drip IV over 14.41 hour(s), Rate: 5 mcg/kg/min, Dispensed: 250 mL bag, Site: #1 right forearm. Medication Ordered: DOPamine Drip IV : 5 mcg/kg/min (HIGH ALERT MEDICATION, NOW). Start 23:14 12/08/2016 Loraine Pizano R.N., Stop 00:20 12/09/2016 Loraine Pizano R.N. Medication Administered: AZITHROMYCIN [IVPB], Dose: 500 mg IVPB over 1 hour(s), Dispensed: 250 mL bag, Site: #2 left forearm. Medication Ordered: Azithromycin IV 500 mg/250 mL (NOW). Start 00:21 12/09/2016 Loraine Pizano R.N., Continued Upon Admission 00:34 12/09/2016 Loraine Pizano R.N. Medication Administered: LEVOFLOXACIN [IVPB], Dose: 750 mg IVPB over 1.5 hour(s), Dispensed: 150 mL bag, Site: #2 left forearm. Medication Ordered: Levofloxacin IV 750 mg/150 mL (NOW).
--- NOTE | 2016-12-11 08:42 | ED MAR SUMMARY ---
..... Medication Administration Record [facility] [address] [place] [address] Patient: FLORESITA WANG Visit ID: [id number] 81y, M Weight: 90.7 kg Height/Length: 63 in BMI: 35.4 ALLERGIES: No Known Drug Allergy Given 20:40 12/08/2016 Loraine Pizano R.N. Medication Administered: ATROPINE [IVP], Dose: 0.5 mg IVP over 1 second(s), Site: #1 right forearm. Medication Ordered: Atropine IV 1 mg (HIGH ALERT MEDICATION, NOW). Start 22:00 12/08/2016 Loraine Pizano R.N., Continued Upon Admission 00:33 12/09/2016 Loraine Pizano R.N. Medication Administered: DOPAMINE [IV DRIP], Dose: 5 mcg Drip IV over 14.41 hour(s), Rate: 5 mcg/kg/min, Dispensed: 250 mL bag, Site: #1 right forearm. Medication Ordered: DOPamine Drip IV : 5 mcg/kg/min (HIGH ALERT MEDICATION, NOW). Start 23:14 12/08/2016 Loraine Pizano R.N., Stop 00:20 12/09/2016 Loraine Pizano R.N. Medication Administered: AZITHROMYCIN [IVPB], Dose: 500 mg IVPB over 1 hour(s), Dispensed: 250 mL bag, Site: #2 left forearm. Medication Ordered: Azithromycin IV 500 mg/250 mL (NOW). Start 00:21 12/09/2016 Loraine Pizano R.N., Continued Upon Admission 00:34 12/09/2016 Loraine Pizano R.N. Medication Administered: LEVOFLOXACIN [IVPB], Dose: 750 mg IVPB over 1.5 hour(s), Dispensed: 150 mL bag, Site: #2 left forearm. Medication Ordered: Levofloxacin IV 750 mg/150 mL (NOW).
[2016-12-11 10:24] VITALS: BP 151/81
--- NOTE | 2016-12-11 13:46 | Provider's Discharge Care Plan ---
Problem, Goal, Plan Problem List 1. Dementia Goals: Improve disease control, Improve function, Prevent disease progress Instructions: Follow up as directed, Take meds as directed, Attempt to keep the patient awake during the day if possible. Follow-up with her PCP next week to discuss sleep agents as necessary. 2. Anemia, iron deficiency Goals: Improve disease control, Prevent disease progress Instructions: Follow up as directed, Take meds as directed 3. Atrial fibrillation Goals: Improve disease control, Prevent disease progress Instructions: Follow up as directed, Take meds as directed 4. Sleep apnea Goals: Improve disease control, Prevent disease progress Instructions: Follow up as directed, Take meds as directed, Follow-up with your physician for scheduling of outpatient sleep apnea screening in your home. 5. Chronic anticoagulation Goals: Improve disease control, Prevent disease progress Instructions: Follow up as directed, Take meds as directed, follow-up for repeat INR this week. Family physician.
--- NOTE | 2016-12-11 16:18 | Discharge Summary ---
Discharge Summary Report Admit Date 12/09/16 Discharge Date 12/11/16 Admission Diagnosis 1. Bradycardia 2. Hypotension 3. Atrial fibrillation 4. Chronic anticoagulation 5. Diabetes mellitus 6. Dementia Discharge Diagnosis 1. Bradycardia 2. Hypotension 3. Atrial fibrillation 4. Chronic anticoagulation 5. Diabetes mellitus 6. Dementia 7. Iron deficiency anemia Brief History The patient is a 81-year-old white male with a significant past medical history of atrial fibrillation, coronary artery disease status post CABG, type 2 diabetes mellitus, hypertension, osteoarthritis, who presented to [facility] emergency room on the day of admission secondary to complaints of shortness of breath and weakness. [facility] ER evaluation consistent with bradycardia, hypotension, atrial fibrillation, diabetes mellitus and hypoxia. Secondary to the above, the patient was admitted by Mitchel Hernandez M.D. for further evaluation and treatment. For other history present illness, past medical history, family history, social history, review of systems, and admission physical examination please see the patient's history and physical examination and ER visit note in the patient's medical record. Hospital Course The following problems and their management were noted during the patient's hospitalization: 1. Bradycardia The patient presented with findings of bradycardia. This occurred in the setting of chronic atrial fibrillation with beta blockers for rate control. His beta merle was discontinued and heart rate normalized off all medications. He required no further medical therapy for rate control and his atrial fibrillation. The patient will follow-up with his PCP for ongoing evaluation and treatment with consideration of cardiology referral. 2. Hypotension The patient presented with findings of hypotension. This resolved early with initial pressors and IV fluids. The patient exhibited no hypotension for 24 hours prior to his discharge. Outpatient follow-up with PCP. 3. Atrial fibrillation See above. Patient had persistent atrial fibrillation with controlled ventricular response. Outpatient follow-up with PCP/cardiology. The patient underwent echocardiogram during his hospital stay without evidence of CHF. Echocardiogram as noted. 4. Chronic anticoagulation The patient has a history of chronic anticoagulation in the setting of atrial fibrillation. INR was therapeutic. The patient will continue on Coumadin post discharge. Follow up in 2 days for repeat INR with PCP. 5. Diabetes mellitus The patient has a long-standing history of diabetes mellitus. Blood sugars were adequately controlled with Glucophage/glimepiride at the time of discharge. Outpatient follow-up with PCP. 6. Dementia The patient has a long-standing history of memory loss/dementia. No further evaluation at this time. Outpatient follow-up with PCP. The patient has experienced sundowning with agitation. This was improved with daytime wakefulness. The patient required no sedative medications at discharge. He will follow-up with his PCP for ongoing recommendations and determination of need for sedative medications at night. 7. Iron deficiency anemia The patient was noted to have findings of iron deficiency anemia. He was treated with ferrous sulfate 325 mg by mouth twice a day. Per family's records the patient has undergone colonoscopy within the past 2 years. He will follow up with his PCP for ongoing evaluation and treatment. Lab/Imaging Echocardiogram IMPRESSION: 1. There is normal LV systolic function with normal LV filling pressures based on the E/E' ratio. There is moderate left ventricular hypertrophy. 2. The RV chamber size is mildly enlarged with mildly reduced RV systolic function. Right ventricular systolic pressure is measured around 30-35 mmHg. 3. The left atrial chamber size is severely enlarged. 4. There is moderate mitral regurgitation, mild aortic stenosis, mild tricuspid regurgitation. 5. The ascending aorta is mildly enlarged at 4.0 cm. Dictated by: SUNG HOGAN MD D: BROOKLYNN;12/11/16 2935 Discharge Instructions/Meds For other recommendations regarding discharge diet, activity, followup, and discharge medications please see the patient's discharge instructions. Discharge condition: Fair, improved Greater than 30 min. was spent in the patient's discharge preparation including discharge interview and physical examination, progress note, discharge instructions, and discharge summary The patient was interviewed and examined on the day of discharge. E&M Codes Discharge: Inpt >30 min spent/[id number]
--- NOTE | 2016-12-11 17:30 | DIAGNOSTIC IMAGING REPORT ---
REFERRING PHYSICIAN/PROVIDER: Mitchel Hernandez MD CONSULTING MANAGER ACQUISITION: Vini Pollack MD PROCEDURE: M-mode 2D echocardiography with spectral and color flow Doppler TECHNICAL QUALITY: Adequate INDICATION: bradycardia, cad RHYTHM DURING PROCEDURE: Atrial fibrillation INTERPRETATIONS: LEFT VENTRICLE: The LV chamber size is within normal limits. There is moderate concentric left ventricular hypertrophy. The left ventricular posterior wall is measured at 1.4 cm and the interventricular septum is measured at 1.5 cm. The left ventricular ejection fraction is 55-60%. There are no obvious focal wall motion abnormalities. RIGHT VENTRICLE: RV chamber size is mildly enlarged. RV systolic function appears to be at least mildly reduced. ATRIA: The left atrial chamber size is severely enlarged at 62.3 mL/m2. The right atrial chamber size appears to be enlarged as well. It is at least moderately enlarged. The interatrial septum is grossly intact with no color flow across the septum. MITRAL VALVE: There is at least mild mitral annular calcification. There is moderate mitral regurgitation. AORTIC VALVE: The aortic valve is calcified with moderately aortic cusps excursion. The peak velocity is 2.0 meters per second. The severity ratio is 0.45. This is consistent with at most mild aortic stenosis. There is no evidence of significant aortic regurgitation. TRICUSPID VALVE: The tricuspid valve is grossly normal bowel with abnormal and function. There is mild tricuspid regurgitation. The right ventricular systolic pressure is estimated around 30-35 mmHg assuming a right atrial pressure of 8 mmHg. PULMONIC VALVE: The pulmonic valve is not well visualized. But there appears to be a trace regurgitation. GREAT VESSELS: The ascending aorta is measured at 4.0 cm. The aortic root is measured at 3.6 cm. The IVC is dilated but collapses more than 50% during respiration which is consistent with a right atrial pressure of 8 mmHg. PERICARDIUM: There is no evidence of pericardial effusion. IMPRESSION: 1. There is normal LV systolic function with normal LV filling pressures based on the E/E' ratio. There is moderate left ventricular hypertrophy. 2. The RV chamber size is mildly enlarged with mildly reduced RV systolic function. Right ventricular systolic pressure is measured around 30-35 mmHg. 3. The left atrial chamber size is severely enlarged. 4. There is moderate mitral regurgitation, mild aortic stenosis, mild tricuspid regurgitation. 5. The ascending aorta is mildly enlarged at 4.0 cm.
== END 2016-12-11 15:25 | disposition home or self-care (01) | DRG 312 ==
LOC: ED SRH 20:06 → TRANS SRH 22:23 → CC SRH 12-09 01:10
PROVIDERS: ADMIT Pediatrics
DX: I95.2 Hypotension due to drugs (principal); R00.1 Bradycardia, unspecified; T44.7X5A Adverse effect of beta-adrenoreceptor antagonists, initial encounter; R09.02 Hypoxemia; R06.82 Tachypnea, not elsewhere classified; I48.91 Unspecified atrial fibrillation; Z79.01 Long term (current) use of anticoagulants; E11.22 Type 2 diabetes mellitus with diabetic chronic kidney disease; I12.9 Hypertensive chronic kidney disease with stage 1 through stage 4 chronic kidney disease, or unspecified chronic kidney disease; E11.40 Type 2 diabetes mellitus with diabetic neuropathy, unspecified; N18.2 Chronic kidney disease, stage 2 (mild); Z87.891 Personal history of nicotine dependence; D50.9 Iron deficiency anemia, unspecified; I25.10 Atherosclerotic heart disease of native coronary artery without angina pectoris; Z95.1 Presence of aortocoronary bypass graft; F03.90 Unspecified dementia, unspecified severity, without behavioral disturbance, psychotic disturbance, mood disturbance, and anxiety; Z79.84 Long term (current) use of oral hypoglycemic drugs; Z85.118 Personal history of other malignant neoplasm of bronchus and lung; Z90.2 Acquired absence of lung [part of]